=== PATIENT | male | born 1960 | race Caucasian/White ===

== ENCOUNTER 2021-01-23 13:48 | Outpatient (CLI) | payer MEDICARE, MEDICAID, SELFPAY ==
--- NOTE | ~2021-01-23 | CT_ITS ---
EXAMINATION: CT lung screening DATE: 01/23/2021 14:04 INDICATION: Personal history of tobacco dependence. TECHNIQUE: Computed tomography (CT) of the chest was performed without intravenous contrast. The dose -length product was 118.84 mGy-cm. Automated exposure control and iterative reconstruction technique were employed. COMPARISON: CT dated 07/02/2017 FINDINGS: Nonenlarged mediastinal lymph nodes, likely reactive. There are calcified mediastinal and h ilar lymph nodes, consistent with chronic granulomatous disease. Heart size is normal. No significant pleural or pericardial effusion. There are are accessory splenules. No significant pleural or perica rdial effusion. There is emphysema. Stable subsolid 11 mm mass superior segment of the left lower lob e. There is a stable 6 mm fissural nodule, minor fissure. There is a 5 mm subsolid nodule left upper lobe. IMPRESSION: 1. Lung-RADS category 2: Benign appearance or behavior. Continue annual screening with noncontrast lo w-dose chest CT in 12 months. Reviewed, dictated and finalized at location A. ETIC INTERN IMPRESSION: 1. Lung-RADS category 2: Benign appearance or behavior. Continue annual screeni ng with noncontrast low-dose chest CT in 12 months.
== END 2021-01-23 13:49 | disposition home or self-care (01) ==
LOC: ANHIMG 13:52
PROVIDERS: PCP Internal Medicine; Visit Provider Nurse Practitioner Family
DX: Z12.2 Encounter for screening for malignant neoplasm of respiratory organs (principal); Z87.891 Personal history of nicotine dependence
CPT/HCPCS: 71271

== ENCOUNTER 2022-02-23 14:33 | Outpatient (CLI) | payer OTHER, SELFPAY ==
--- NOTE | ~2022-02-23 | CT_ITS ---
EXAMINATION: CT lung screening DATE: 02/23/2022 14:55 INDICATION: Screening for lung cancer. TECHNIQUE: Computed tomography (CT) of the chest was performed without intravenous contrast. The dose -length product was 145.50 mGy-cm. Automated exposure control and iterative reconstruction technique were employed. COMPARISON: CT dated 01/23/2021 FINDINGS: Heart size normal. No thoracic lymphadenopathy. There are scattered calcified granulomas. N o significant pleural or pericardial effusion. There are accessory splenules. There are cholecystecto my clips. There is emphysema. There is a new cluster of nodules in the right upper lobe, largest nelida uring 8 mm. There is a new 7 mm right upper lobe nodule, image 55. There are clustered nodules in the right lower lobe with tree-in-bud configuration. The largest of these nodules measures 1.5 cm. There is a new 9 mm right lower lobe nodule stable some solid nodule in the superior segment left lower lo be measuring 11 mm. There is a new 1 cm left lower lobe nodule just above the diaphragm, image 85. No pneumothorax. No focal lytic or blastic lesions. IMPRESSION: 1. BI-RADS Category 4B, very suspicious: Recommend follow-up PET/CT scan or percutaneous biopsy. Reviewed, dictated and finalized at location A. TIONAL EDUCATION PROFESSIONAL IMPRESSION: 1. BI-RADS Category 4B, very suspicious: Recommend follow-up PET/CT scan or per cutaneous biopsy.
== END 2022-02-23 14:34 | disposition home or self-care (01) ==
PROVIDERS: PCP Internal Medicine; Visit Provider Nurse Practitioner Family
DX: Z12.2 Encounter for screening for malignant neoplasm of respiratory organs (principal); F17.210 Nicotine dependence, cigarettes, uncomplicated; R91.8 Other nonspecific abnormal finding of lung field
CPT/HCPCS: 71271

== ENCOUNTER 2022-03-22 09:02 | Outpatient (CLI) | payer OTHER, SELFPAY ==
--- NOTE | ~2022-03-22 | PE_ITS ---
EXAMINATION: PET skull to mid thigh DATE: 03/22/2022 10:41 INDICATION: Lung nodule. TECHNIQUE: Blood glucose level was 113 mg/dL. 11.494 mCi of 18-fluorodeoxyglucose (18-FDG) was admini stered i.v. Low dose computed tomography (CT) images were acquired from the base of the brain to the proximal thighs for attenuation correction and anatomic localization. Automated exposure control was employed. Dose-length product (DLP) was 770 mGy-cm. Positron emission tomography (PET) images were ac quired in the same distribution. COMPARISON: Chest CT 02/23/2022, 01/23/2021 FINDINGS: Head/neck: There is increased activity in the oral cavity, pharynx, major salivary glands, and glotti s without abnormal CT correlate, likely physiologic. There is mucosal thickening in the paranasal sin uses with sclerosis of many of the sinus maldonado and surgical changes and increased activity, consisten t with chronic sinusitis. Chest: There is mild emphysema. Calcified pulmonary nodules and calcified hilar and mediastinal lymph nodes are consistent with old granulomatous disease. There is mild bilateral hilar and mediastinal l ymphadenopathy with increased activity. There is a 10 mm nodule in superior segment left lower lobe w ithout increased activity, stable from 01/23/2021, likely benign. There are nodules in right upper lob e and right lower lobe measuring up to 5 mm without increased activity with interval improvement. No pleural effusion. The heart size is normal. No pericardial effusion. Abdomen/pelvis/proximal thighs: The liver and spleen are normal. There are changes of cholecystectomy . The pancreas, adrenal glands, and kidneys are normal. The prostate is mildly enlarged. There is div erticulosis of the colon without evidence of diverticulitis. There are no dilated loops of bowel. The appendix is normal. There are no pathologically enlarged lymph nodes. There is no free intraperitone al fluid. There is prominent fat in the inguinal canals that may be hernias. There is no osseous humble gnancy. IMPRESSION: 1. Small pulmonary nodules without increased activity with improvement from 02/23/2022, likely infecti on. Continue annual screening with noncontrast low-dose chest CT in 12 months. 2. Mild bilateral hilar and mediastinal lymphadenopathy with increased activity, likely reactive. 3. Mild emphysema. Reviewed, dictated and finalized at location A. ANTILE AGENT IMPRESSION: 1. Small pulmonary nodules without increased activity with improvement from 02/23/2022, likely infection. Continue annual screening with noncontrast low-dose c hest CT in 12 months. 2. Mild bilateral hilar and mediastinal lymphadenopathy with increased activity , likely reactive. 3. Mild emphysema.
[2022-03-22 09:24] LABS: Glucose Point of Care 113 mg/dl (65-105)
== END 2022-03-22 09:03 | disposition home or self-care (01) ==
PROVIDERS: PCP Internal Medicine; Visit Provider Nurse Practitioner Family
DX: R91.8 Other nonspecific abnormal finding of lung field (principal)
CPT/HCPCS: 78815; A9552

== ENCOUNTER 2023-04-03 12:36 | Outpatient (CLI) | payer OTHER, SELFPAY ==
--- NOTE | ~2023-04-03 | CT_ITS ---
CT Scan of the Chest without Contrast: Clinical Indication: Lung cancer screening, personal history of nicotine dependence Technique: Contiguous sections were acquired throughout the chest without intravenous contrast. Dose reduction technique was used on this scan by utilizing automated exposure control and iterative recon struction technique. The dose-length product (DLP) was 169.45 mGy-cm. COMPARISON: 02/23/2022 Findings: There is no evidence of any significant mediastinal, hilar or axillary lymphadenopathy. The mediastin al soft tissues appear normal. There is no evidence of pleural or pericardial effusion. 1.1 cm semisolid nodule in the superior segment left lower lobe is similar to prior exam. There are f ocal, mild tree-in-bud opacities in the anterior right upper lobe. Nodularity at the more inferior, p eripheral right upper lobe is resolved from prior exam. Areas of nodularity bilateral lung bases are resolved. Images through the upper abdomen reveal no abnormalities. Impression: Stable 1.1 cm semisolid nodule in the superior segment left lower lobe. Focal, mild tree-in-bud opacities anterior right upper lobe, suggestive of small airways infectious p rocess. Areas of irregular nodularity at the bilateral lung bases are resolved. Reviewed, dictated and finalized at location M. NG AND REIMBURSEMENT SPECIALIST Impression: Stable 1.1 cm semisolid nodule in the superior segment left lower lobe. Focal, mild tree-in-bud opacities anterior right upper lobe, suggestive of smal l airways infectious process. Areas of irregular nodularity at the bilateral lung bases are resolved.
== END 2023-04-03 12:37 | disposition home or self-care (01) ==
PROVIDERS: PCP Family Medicine; Visit Provider Nurse Practitioner Family
DX: Z12.2 Encounter for screening for malignant neoplasm of respiratory organs (principal); Z87.891 Personal history of nicotine dependence
CPT/HCPCS: 71271

== ENCOUNTER 2024-04-06 09:52 | Outpatient (CLI) | payer MEDICARE, MEDICAID, SELFPAY ==
--- NOTE | ~2024-04-06 | CT_ITS ---
EXAMINATION: CT lung screening DATE: 04/06/2024 10:21 INDICATION: Z87.891 - Personal history of nicotine dependence TECHNIQUE: Computed tomography (CT) of the chest was performed without intravenous contrast. Addition al 3D reconstructions utilizing coronal maximum intensity projection (MIP) were performed. Automated exposure control and iterative reconstruction technique were employed. The dose-length product was 14 5.29 mGy-cm. COMPARISON: 04/03/2023, 02/23/2022, 01/23/2021 and 07/02/2017 FINDINGS: Mild emphysema. There are multiple scattered <4 mm pulmonary nodules, the majority regions of tree-in -bud opacity in the bilateral lower lobes and in the right upper lobe. These include a few scattered calcified pulmonary nodules which along with calcified bilateral hilar and mediastinal lymph nodes ar e consistent with old granulomatous disease. No significant interval change since 07/02/2017 in a 1.1 cm spiculated nodule in the superior segment of the left lower lobe. Heart size is normal. No pericar dial effusion. Small amount of aortic valve calcification. Thoracic aorta is normal in caliber. No pa thologically enlarged thoracic lymphadenopathy. Cholecystectomy clips along the gallbladder fossa. Ch ronic mild anterior wedging of a few mid and lower thoracic vertebral bodies. IMPRESSION: 1. Lung-RADS category 2: Benign appearance or behavior. Continue annual screening with noncontrast lo w-dose chest CT in 12 months. Reviewed, dictated and finalized at location A. H BORING MACHINE OPERATOR IMPRESSION: 1. Lung-RADS category 2: Benign appearance or behavior. Continue annual screeni ng with noncontrast low-dose chest CT in 12 months.
== END 2024-04-06 09:53 | disposition home or self-care (01) ==
PROVIDERS: PCP Family Medicine; Visit Provider Nurse Practitioner Family
DX: Z12.2 Encounter for screening for malignant neoplasm of respiratory organs (principal); Z87.891 Personal history of nicotine dependence
CPT/HCPCS: 71271

== ENCOUNTER 2024-05-24 18:08 | Inpatient (IN) | payer MEDICARE, MEDICAID, SELFPAY ==
[2024-05-24] VITALS (19 sets, daily range): BP systolic 106–136; BP diastolic 62–94; PULSE 48–108; RESP 13–28; TEMP 36.8; O2SAT 81–98
--- NOTE | ~2024-05-24 | XR_ITS ---
EXAMINATION: XR chest 2V Exam Date/Time: 05/24/2024 18:35 CDT HISTORY: SOB Comparison: 02/01/2019. RESULT: Lines, tubes, and devices: None. Lungs and pleura: Clear. Cardiomediastinal silhouette: Stable. Other: No acute osseous or upper abdominal finding. 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 IMPRESSION: No acute cardiopulmonary process. Reviewed, dictated and finalized at location K.
--- OUTSIDE RECORDS SUMMARY | 2024-05-24 18:11 | XMS_ITS | Clinical Summary ---
Author Organization [facility] Address [address] [place] [address] Care Team Providers Care Broke Beater Operator Name Role Phone John Stout MD Primary Care Provider Allergies Active Allergy Reactions Criticality Noted Date Comments Aspirin Anaphylaxis High 02/18/2017 Ibuprofen Anaphylaxis,Itching High 07/10/2013 Methylprednisolone Shortness of breath High 04/08/19 17 Breathing Difficulty Naproxen Anaphylaxis High 09/25/2013 Nsaids (Non-Steroidal Anti-Inflammatory Drug) Anaphylaxis,Shortne ss of breath High 07/20/2013 Breathing Difficulty Medications ALPRAZolam (XANAX) 0.25 mg tablet Take 0.5-1 tablets (0.125-0.25 mg total) by mouth 2 (two) times a day as needed 03/21/19 16 Active albuterol 0.63 mg/3 mL nebulizer solution USE 1 VIAL VIA NEBULIZER FOUR TIMES DAILY NEEDED FOR SHORTNESS OF BREATH OR WHEEZING 03/13/20 18 Active montelukast (SINGULAIR) 10 mg tablet TAKE 1 TABLET(10 MG) BY MOUTH EVERY NIGHT AT BEDTIME 01/09/20 17 Active cetirizine (ZyrTEC) 10 mg tablet Take 1 tablet (10 mg total) by mouth every 12 (twelve) hours 10/07/19 22 Active EPINEPHrine 0.3 mg/0.3 mL auto-injection syringe INJECT IN THE MUSCLE NEEDED FOR ANAPHYLAXIS. REPEAT IN 5-15 MINUTES IF NEEDED 09/30/19 22 Active diphenhydrAMINE (BENADRYL) 12.5 mg chewable tablet Take 1 tablet (12.5 mg total) by mouth daily as needed for allergies Active ipratropium-alb uteroL (DUO-NEB) 0.5-2.5 mg/3 mL nebulizer solutionIndicat ions:Severe persistent asthma with acute exacerbation (HCC) Take 3 mL by nebulization every 6 (six) hours as needed for wheezing or shortness of breath 180 mL 3 04/24/19 24 Active beclomethasone dipropionate (Qvar RediHaler) 80 mcg/actuation inhalerIndicati ons:Severe persistent asthma, unspecified whether complicated (HCC) Inhale 2 puffs 2 (two) times a day Rinse mouth with water after use. Do not swallow. 1 each 10/02/19 24 Active Additional Information Patient not taking.Reported on 03/02/2024 fluticasone propionate (Xhance) 93 mcg/actuation aerosol breath activatedIndica tions:Nasal polyps Administer 93 mcg into affected nostril(s) 2 (two) times a day 16 mL 11 01/09/20 24 Active Tezspire 210 mg/1.91 mL (110 mg/mL) pen injector Inject 210 mg as directed every 28 (twenty-eight) days 1.91 mL 11 04/24/19 25 Active Breztri Aerosphere 160-9-4.8 mcg/actuation inhalerIndicati ons:Severe persistent asthma with acute exacerbation (HCC) INHALE 2 PUFFS BY MOUTH TWICE DAILY 10.7 g 2 05/05/19 25 Active budesonide-glyc opyr-formoterol (Breztri Aerosphere) 160-9-4.8 mcg/actuation inhalerIndicati ons:Severe persistent asthma with acute exacerbation (HCC) INHALE 2 PUFFS BY MOUTH TWICE DAILY 10.7 g 2 01/02/20 24 2024 Discontinued Active Problems Problem Noted Date Diagnosed Date Polyp, nasal, cavity 10/25/2021 REJI (obstructive sleep apnea) 04/19/2016 Tobacco use 05/04/2015 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 Chronic obstructive pulmonary disease 03/16/2013 Encounters Date Type Department Care Team Description 04/29/2024 Telephone [facility] [address] [place] [address] Avani Lopes RPh 03/02/2024 1:26 PM EDGER HAND - 03/02/2024 11:59 PM EDGER HAND Hospital Encounter [facility] Radiology at the [address] [address] Severe persistent asthma with acute exacerbation (HCC); Upper respiratory tract infection, unspecified type Discharge Disposition: Discharge to home or self care 03/02/2024 1:00 PM EDGER HAND Office Visit [facility] [address] [place] [address] [place] [phone] Sarah Anderson NP Severe persistent asthma with acute exacerbation (HCC) (Primary Dx); Upper respiratory tract infection, unspecified type 03/02/2024 Telephone [facility] [address] [place] [phone] Sarah Anderson NP 02/28/2024 Telephone [facility] [address] [place] [phone] Rocío Elena from Last 3 Months Surgical History Surgery Date Site/Laterality Comments CHOLECYSTECTOMY SINUS SURGERY Medical History Medical History Date Comments Asthma COPD (chronic obstructive pulmonary disease) (HC C) Social History Tobacco Use Types Packs/Day Years Used Date Smoking Tobacco: Every Day Cigarettes Smokeless Tobacco: Never Tobacco Cessation:Ready to Q uit: Yes; Counseling Given: No Alcohol Use Standard Drinks/Week Comments Not Currently 0 (1 standard drink = 0.6 oz pur e alcohol) AUDIT-C Answer Date Recorded Q1: How often do you have a drink containing alc ohol? 2-4 times a month 08/01/2022 Q2: How many drinks containi ng alcohol do you have on a typical day when you are drinking? 3 or 4 08/01/2022 Q3: How often do you have si x or more drinks on one occasion? Never 08/01/2022 Sex and Gender Information Value Date Recorded Sex Assigned at Not on file Legal Sex Male 9:50 AM EDGER HAND Gender Identity Not on file Sexual Orientation Not on file Obstetrics History Last Filed Vital Signs Vital Sign Reading Time Taken Comments Blood Pressure 128/81 03/02/2024 12:43 PM EDGER HAND Pulse 74 03/02/2024 12:43 PM EDGER HAND Temperature 36.4 C (97.5 F) 03/02/2024 12:43 PM EDGER HAND Respiratory Rate 18 03/02/2024 12:43 PM EDGER HAND Oxygen Saturation 91% 03/02/2024 12:43 PM EDGER HAND Inhaled Oxygen Concentration - - Weight 95.7 kg (211 lb) 03/02/2024 12:43 PM EDGER HAND Height 175.3 cm (5' 9 ) 03/02/2024 12:43 PM EDGER HAND Body Mass Index 31.16 03/02/2024 12:43 PM EDGER HAND Plan of Treatment Health Maintenance Due Date Last Done Comments Colon Cancer Screening-Colonoscopy 1958 Depression Screening 1958 Fall Risk Assessment 1960 Hepatitis C Screening 1960 Prostate Cancer Screening-PSA 1958 DTaP/Tdap/Td Vaccine (1 - Tdap) 1969 Hepatitis B Screening 1976 Zoster Vaccine (1 of 2) 2008 Abdominal Aortic Aneurysm (A AA) Screen 06/30/2023 09/01/2020 Well Visit 65+ 06/30/2023 Covid-19 Vaccine (4 - 2023-2 5 season) 2023 05/09/2021, 11/22/2020, 10/21/2020 Influenza Vaccine (#1) 2023 , 01/07/2020, 12/10/2016, Additional history exists Pneumococcal vaccine 65+ (3 of 3 - PCV20 or PCV21) 11/11/2024 11/12/2019, 02/17/2015, 07/02/2013 Procedures Procedure Name Priority Date/Time Associated Diagnosis Comments XR CHEST PA LATERAL 2 VIEWS Schedule Routine, Read Routine (OP Routine) 03/02/2024 1:30 PM EDGER HAND Severe persistent asthma with acute exacerbation (HCC) Upper respiratory tract infection, unspecified type CT ABDOMEN PELVIS WO CONTRAST ED 09/01/2020 11:39 PM CDT from Last 3 Months or Most Recently Relevant to Health Maintenance Results * XR Chest PA Lateral 2 Views (03/02/2024 1:30 PM EDGER HAND) Anatomical Region Laterality Modality Body, Chest N/A Computed Radiogr aphy 03/02/2024 1:49 PM EDGER HAND Impressions 03/02/2024 2:02 PM EDGER HAND Comparison made to topogram from chest CT dated 10/30/2013. Lungs are hyperinflated. No pulmonary consolidation, pleural effusion, or pneumothorax. Cardiomediastinal silhouette is normal. Dictated by: Hubert Long MD The radiology attending physician has personally reviewed this study, and had reviewed and/or edited this written report and agrees with it. Electronically signed by: Cam Lisa M.D. Narrative 03/02/2024 2:02 PM EDGER HAND EXAMINATION: 2 view chest radiograph Procedure Note Cam Lisa MD - 03/02/2024 EXAMINATION: 2 view chest radiograph IMPRESSION: Comparison made to topogram from chest CT dated 10/30/2013. Lungs are hyperinflated. No pulmonary consolidation, pleural effusion, or pneumothorax. Cardiomediastinal silhouette is normal. Dictated by: Hubert Long MD The radiology attending physician has personally reviewed this study, and had reviewed and/or edited this written report and agrees with it. Electronically signed by: Cam Lisa M.D. Sarah Saffaf PHARMACOMETRICIAN IM XR PROCEDURES Final Result * CT Abdomen Pelvis WO Contrast (09/01/2020 11:39 PM CDT) Anatomical Region Laterality Modality Body N/A Computed Tomogra phy 09/01/2020 11:2 5 PM CDT Impressions 09/02/2020 1:05 AM CDT 1. Minimal wall thickening within the urinary bladder, which may be due to under distension. Cystitis could also have this appearance in the correct clinical context. 2. A cluster of tree-in-bud type pulmonary infiltrate within the right lower lobe, suggesting infectious or inflammatory process. This may represent a reactivated atypical bacterial infection, given the findings on the prior chest CT study, or could represent aspiration pneumonitis. 3. Cholecystectomy without evidence for complication. 4. Diverticulosis without diverticulitis. THIS DOCUMENT HAS BEEN ELECTRONICALLY SIGNED BY CRYS GUEVARA MD THIS DOCUMENT WAS READ BY A [facility] RADIOLOGIST, ANY QUESTIONS PLEASE CALL [phone] Narrative 09/02/2020 1:05 AM CDT PROCEDURE INFORMATION: Exam: CT Abdomen And Pelvis Without Contrast Exam date and time: 09/01/2020 11:25 PM Age: 60 years old Clinical indication: Abdominal pain; Prior surgery; Surgery date: 6+ months; Surgery type: Josephine; Patient HX: Right sided abd that radiates to back; Additional info: Abdominal pain, acute, nonlocalized TECHNIQUE: Imaging protocol: Computed tomography of the abdomen and pelvis without contrast. Radiation optimization: All CT scans at this facility use at least one of these dose optimization techniques: automated exposure control; mA and/or kV adjustment per patient size (includes targeted exams where dose is matched to clinical indication); or iterative reconstruction. COMPARISON: CT Chest without contrast 10/30/2013 2:05 PM FINDINGS: Lungs: An 18 mm pulmonary cyst is seen within the lateral basilar segment of the left lower lobe. Minimal atelectasis is seen within the lung bases. A cluster of tree-in-bud type pulmonary nodules are seen within the lateral basilar segment of the right lower lobe. Pleural spaces: No pleural effusion. Heart: The heart is normal in size. No pericardial effusion. Liver: The liver is upper limits of normal in size. Gallbladder and bile ducts: The gallbladder is surgically absent. No bile duct dilatation. Pancreas: Normal. No ductal dilation. Spleen: Normal. No splenomegaly. Adrenal glands: Normal. No mass. Kidneys and ureters: The bilateral kidneys are normal appearance. No hydronephrosis. Stomach and bowel: Diverticula are seen within the descending and sigmoid colon without diverticulitis. Appendix: No evidence of appendicitis. Intraperitoneal space: No free fluid, free air, or abscess. Vasculature: Mild atherosclerotic calcifications within the abdominal aorta without aneurysm. Lymph nodes: Unremarkable. No enlarged lymph nodes. Urinary bladder: Minimal wall thickening within the urinary bladder, which may be due to under distension. Reproductive: The prostate gland is mildly enlarged. Bones/joints: Mild degenerative changes within the lumbar spine. No acute compression fracture. Soft tissues: Small bilateral fat containing inguinal hernias. Procedure Note Crys Guevara MD - 09/02/2020 PROCEDURE INFORMATION: Exam: CT Abdomen And Pelvis Without Contrast Exam date and time: 09/01/2020 11:25 PM Age: 60 years old Clinical indication: Abdominal pain; Prior surgery; Surgery date: 6+months; Surgery type: Josephine; Patient HX: Right sided abd that radiates to back; Additional info: Abdominal pain, acute, nonlocalized TECHNIQUE: Imaging protocol: Computed tomography of the abdomen and pelvis without contrast. Radiation optimization: All CT scans at this facility use at least one ofthese dose optimization techniques: automated exposure control; mA and/or kV adjustment per patient size (includes targeted exams where dose is matchedto clinical indication); or iterative reconstruction. COMPARISON: CT Chest without contrast 10/30/2013 2:05 PM FINDINGS: Lungs: An 18 mm pulmonary cyst is seen within the lateral basilar segmentof the left lower lobe. Minimal atelectasis is seen within the lung bases. A cluster of tree-in-bud type pulmonary nodules are seen within the lateral basilar segment of the right lower lobe. Pleural spaces: No pleural effusion. Heart: The heart is normal in size. No pericardial effusion. Liver: The liver is upper limits of normal in size. Gallbladder and bile ducts: The gallbladder is surgically absent. No bileduct dilatation. Pancreas: Normal. No ductal dilation. Spleen: Normal. No splenomegaly. Adrenal glands: Normal. No mass. Kidneys and ureters: The bilateral kidneys are normal appearance. No hydronephrosis. Stomach and bowel: Diverticula are seen within the descending and sigmoidcolon without diverticulitis. Appendix: No evidence of appendicitis. Intraperitoneal space: No free fluid, free air, or abscess. Vasculature: Mild atherosclerotic calcifications within the abdominalaorta without aneurysm. Lymph nodes: Unremarkable. No enlarged lymph nodes. Urinary bladder: Minimal wall thickening within the urinary bladder, whichmay be due to under distension. Reproductive: The prostate gland is mildly enlarged. Bones/joints: Mild degenerative changes within the lumbar spine. No acute compression fracture. Soft tissues: Small bilateral fat containing inguinal hernias. IMPRESSION: 1. Minimal wall thickening within the urinary bladder, which may be due to under distension. Cystitis could also have this appearance in the correct clinical context. 2. A cluster of tree-in-bud type pulmonary infiltrate within the rightlower lobe, suggesting infectious or inflammatory process. This may represent a reactivated atypical bacterial infection, given the findings on the priorchest CT study, or could represent aspiration pneumonitis. 3. Cholecystectomy without evidence for complication. 4. Diverticulosis without diverticulitis. THIS DOCUMENT HAS BEEN ELECTRONICALLY SIGNED BY CRYS GUEVARA MD THIS DOCUMENT WAS READ BY A [facility] RADIOLOGIST, ANY QUESTIONS PLEASE [phone] Rocío Lindquist MD IMG CT PROCEDURES Final Result from Last 3 Months or Most Recently Relevant to Health Maintenance Insurance [facility] MEDICARE MEDICARE Care Teams Broke Beater Operator Relationship Specialty [place] [address] [place], [place] [id number] PCP - General Internal Medicine 12/15/21
--- OUTSIDE RECORDS SUMMARY | 2024-05-24 18:11 | XMS_ITS | Encounter Summary ---
Author Organization [facility] Address [address] [place] [address] Care Team Providers Care Television Producer Name Role Phone John Stout MD Primary Care Provider U John An MD Primary Care Provider U Ken Bae MD Primary Care Provider [phone] Encounter Details Date Type Department Care Team (Late st Contact Info) Description 08/27/2018 Hospital Follow-up Call [facility] Med/Surg [address] [place] [address] Jacklyn Morales, YOLY Social History Tobacco Use Types Packs/Day Years Used Date Smoking Tobacco: Every Day Cigarettes 0.5 38 Smokeless Tobacco: Never Comments:10-15 cigs a day Alcohol Use Standard Drinks/Week Comments Yes 0 (1 standard drink = 0.6 oz pur e alcohol) socially Education Answer Date Recorded What is the highest level of school you have completed or the highest degree you have received? 10th grade 02/19/2018 Sex and Gender Information Value Date Recorded Sex Assigned at Male 12/25/2018 5:07 AM CDT Legal Sex Male 1:30 AM CDT Gender Identity Male 12/25/2018 5:07 AM CDT Sexual Orientation Straight 12/25/2018 5: 07 AM CDT Occupation Industry Job Start Date Job End Date Not on file Not on file Not on file Not on file documented as of this encounter Plan of Treatment Not on file documented as of this encounter Visit Diagnoses Not on filedocumented in this encounter Additional Health Concerns Infection Onset Date Last Indicated Resolved Time COVID-19 Rule Out 10/02/2021 10/02/202110/0210/02/2021 6:12 PM CDT COVID-19 Rule Out 10/11/2021 10/11/2021 10/11/2021 4:35 PM CDT COVID-19 Rule Out 03/13/2023 03/13/2023 03/13/2023 2:57 PM REPRESENTATIVE Influenza - Seasonal 03/13/2023 03/13/2023 024 12:33 AM REPRESENTATIVE COVID-19 Rule Out 02/06/2024 02/06/2024 02/06/2024 1:48 PM REPRESENTATIVE Influenza - Seasonal 02/06/2024 02/06/2024 024 12:33 AM REPRESENTATIVE documented as of this encounter Care Teams Television Producer Relationship Specialty Start Date End Date John Stout MD PCP - General INTERNAL MEDICINE 02/19/18 06/04/21 John Stout MD PCP - General INTERNAL MEDICINE 06/19/21 04/26/22 [place] [address] [place] [address] PCP - General FAMILY PRACTICE 04/27/22 documented as of this encounter
--- OUTSIDE RECORDS SUMMARY | 2024-05-24 18:11 | XMS_ITS | Clinical Summary ---
Author Organization [facility] Address [address] [place] [address] Care Team Providers Care Splicing Technician Name Role Phone John Stout MD Primary Care Provider + Source Comments [facility],non-owned Affiliates and Associated Physician Practices is amultiple site organization consisting of ambulatory clinics and hospital sitesin [place], [place], [place] and [place]. This disclosure is being madepursuant to the Care Everywhere program and may not contain all information available regarding this patient. Last updated 17.[facility] Allergies Active Allergy Reactions Criticality Noted Date Comments Aspirin Anaphylaxis High 02/18/2017 Nsaids Anaphylaxis High 05/04/2015 Medications * Be aware that medications may not be up to date on this document. Alwaysverify current medications with the patient. Medication Sig Dispensed Refills Start Date End Date Status albuterol HFA (VENTOLIN HFA) 108 (90 BASE) MCG/ACT inhaler Inhale 2 puffs by mouth q6h PRN (Wheezing). 01/08/2017 Active diphenhydrAMINE (BENADRYL) 25 MG tablet Take 25 mg by mouth q6h PRN (Insomnia). 01/08/2017 Active montelukast (SINGULAIR) 10 MG tablet Take 10 mg by mouth DAILY. 01/08/2017 Active Oxygen [place] 3 L/min into the nose as needed Active ALPRAZolam (XANAX) 0.25 MG tablet Take 1 tablet by mouth 03/21/2015 Active umeclidinium (INCRUSE ELLIPTA) 62.5 MCG/INH inhalerIndications:C hronic obstructive pulmonary disease, unspecified COPD type (HCC) Inhale 1 puff by mouth once daily 1 Each 11 07/24/2017 Active cetirizine (ZYRTEC) 10 MG tablet Take 10 mg by mouth once daily Active zileuton CR 12hr (ZYFLO CR) 600 MG tablet Take 2 tablets by mouth 2 times daily after meals 120 tablet 01/03/2018 Active albuterol (ACCUNEB) 0.63 MG/3ML nebulizer solution USE 1 VIAL VIA NEBULIZER FOUR TIMES DAILY NEEDED FOR SHORTNESS OF BREATH OR WHEEZING 225 mL 03/13/2018 Active Active Problems Problem Noted Date Diagnosed Date Chronic pansinusitis 01/01/2018 Urticaria 07/21/2015 Chronic rhinitis 07/21/2015 Nasal polyp 05/04/2015 Allergy status to other drug s, medicaments and biological substances status 05/04/2015 Tobacco use 05/04/2015 Allergic rhinitis 05/04/2015 Aspirin sensitivity 05/04/2015 Resolved Problems Problem Noted Date Diagnosed Date Resolved Date Severe persistent asthma wit h acute exacerbation 05/04/2015 07/01/2017 Social History Tobacco Use Types Packs/Day Years Used Date Smoking Tobacco: Every Day Cigarettes Last attempted to quit: 08/26/2017 Smokeless Tobacco: Former Quit: 03/18/1987 Tobacco Cessation:Counseling Given: No Comments:nicotine patch in place at this time Alcohol Use Standard Drinks/Week Comments Yes 4 (1 standard drink = 0.6 oz pur e alcohol) 6 beers a month Sex and Gender Information Value Date Recorded Sex Assigned at Not on file Gender Identity Not on file Sexual Orientation Not on file Last Filed Vital Signs Vital Sign Reading Time Taken Comments Blood Pressure 128/73 05/07/2018 10:44 AM FORENSIC ENGINEER Pulse 93 05/07/2018 10:44 AM FORENSIC ENGINEER Temperature 36.6 C (97.8 F) 11/08/2017 10:12 AM CDT Respiratory Rate 16 11/08/2017 11:44 AM CDT Oxygen Saturation 100% 11/08/2017 11:44 AM CDT Inhaled Oxygen Concentration - - Weight 105 kg (231 lb 8 oz) 05/07/2018 10:44 AM FORENSIC ENGINEER Height 175.3 cm (5' 9 ) 05/07/2018 10:44 AM FORENSIC ENGINEER Body Mass Index 34.19 05/07/2018 10:44 AM FORENSIC ENGINEER Plan of Treatment Health Maintenance Due Date Last Done Comments COLOGELIO (AGES 45-75) - COL ON CA SCREENING 1958 COLON MONITORING 1958 COLONOSCOPY - COLON CA SCREENING 1958 CT COLONOGRAPHY - COLON CA SCREENING 1958 Colorectal Cancer Screening 1958 FIT - COLON CA SCREENING 1958 FLEX SIG - COLON CA SCREENING 1958 LIPID TESTING 1958 MEDICARE AWV 12 MONTHS 1958 HIV SCREENING 1973 HEPATITIS C SCREENING 06/24/1976 DTAP/TDAP/TD VACCINES (1 - Tdap) 1977 PNEUMOCOCCAL VACCINE 50+ (1 of 2 - PCV) 1977 ZOSTER VACCINE (1 of 2) 2008 SCREENING FOR DIABETES 11/08/2020 11/08/2017 AAA SCREENING 06/30/2023 COVID-19 VACCINE (1 - 2023-2 5 season) 2023 INFLUENZA VACCINE (#1) 2023 DEPRESSION SCREENING 03/18/2024 Respiratory Syncytial Virus (RSV) Vaccine Pt: or over 60 yrs (1 - 1-dose 75+ series) 2033 HEPATITIS B VACCINE Aged Out No longe r eligible based on patient's age to complete this topic HIB VACCINE Aged Out No longer eligi ble based on patient's age to complete this topic HPV VACCINE Aged Out No longer eligi ble based on patient's age to complete this topic MENINGOCOCCAL (Group B) VACCINE Aged Out No longer eligible based on patient's age to complete this topic MENINGOCOCCAL VACCINE Aged Out No robin teena eligible based on patient's age to complete this topic Procedures Procedure Name Priority Date/Time Associated Diagnosis Comments COMPREHENSIVE METABOLIC PANEL STAT 11/08/2017 10:41 AM CDT Urticaria from Last 3 Months or Most Recently Relevant to Health Maintenance Results * (ABNORMAL) COMPREHENSIVE METABOLIC PANEL (11/08/2017 10:41 AM CDT) BUN 10 7 - 26 mg/dL 11/08/2017 11:02 AM [facility] Creatinine 1.0 0.6 - 1.2 mg/dL 11/08/2017 11:02 AM [facility] Sodium 140 136 - 145 mmol/L 11/08/2017 11:[address] [facility] Potassium 3.7 3.5 - 4.5 mmol/L 11/08/2017 11:[address] [facility] Chloride 101 98 - 107 mmol/L 11/08/2017 11:[address] [facility] CO2 30(H) 22 - 29 mmol/L 11/08/2017 11:[address] [facility] Glucose 94 70 - 115 mg/dL 11/08/2017 11:[address] [facility] Calcium 9.6 8.4 - 10.2 mg/dL 11/08/2017 11:[address] [facility] Protein Total 7.1 6.0 - 8.3 g/dL 11/08/2017 11:[address] [facility] Albumin 3.5 3.4 - 5.0 g/dL 11/08/2017 11:[address] [facility] Bilirubin Total 0.6 0.2 - 1.2 mg/dL 11/08/2017 11:[address] [facility] Alkaline Phosphatase 90 40 - 150 Units/L 11/08/2017 11:[address] [facility] ALT 46 0 - 55 Units/L 11/08/2017 11:[address] [facility] AST 22 5 - 34 Units/L 11/08/2017 11:[address] [facility] Anion Gap 13 8 - 18 11/08/2017 11:[address] [facility] BUN/Creatinine Ratio 10 7 - 23 11/08/2017 11:[address] [facility] Osmolality Calculated 289 270 - 300 mOsm/kg 11/08/2017 11:[address] [facility] Albumin/Globulin Ratio 1.0(L) 1.1 - 2.3 11/08/2017 11:[address] [facility] eGFR >60 >60 mL/min/1.7 3 m2 11/08/2017 11:[address] [facility] Blood BLOOD SPECIMEN / Unknown Venipuncture / Unknown 11/08/2017 10:41 AM CDT 11/08/2017 10:44 AM T Uriel Hooker MD LAB - CHEMISTRY [place] [facility] Organization Address City/State/ZIP Co de Phone Number [facility] [address] [place] [address], [facility] [phone] from Last 3 Months or Most Recently Relevant to Health Maintenance Care Teams Splicing Technician Relationship Specialty Start Date End Date John Stout MD PCP - General 03/22/15
--- OUTSIDE RECORDS SUMMARY | 2024-05-24 18:11 | XMS_ITS | Clinical Summary ---
Author Organization [facility] Address [address] [place] [address] Care Team Providers Care Facilities Assistant Name Role Phone Ken Link MD Primary Care Provider [phone] Allergies Active Allergy Reactions Criticality Noted Date Comments Aspirin Anaphylaxis High 02/18/2017 Ibuprofen Anaphylaxis High 07/10/2013 Naproxen Anaphylaxis High 08/22/2018 Nsaids Anaphylaxis High 07/20/2013 Medications OXYGEN 3 L/min by Nasal route. Active acetaminophen 325 MG tablet Take 2 tablets (650 mg total) by mouth every 6 (six) hours as needed for Pain. Active fluticasone propionate 50 MCG/ACT nasal spray 2 sprays by Nasal route daily as needed for Allergies or Rhinitis. Uses on days he is not using ipratropium nasal spray 0 019 Active ipratropium-albut filiberto 0.5-2.5 (3) MG/3ML SolutionIndicatio ns:Asthma with COPD ([facility]) Take 3 mLs by nebulization every 6 (six) hours as needed. 1080 mL 2 020 Active EPINEPHrine 0.3 MG/0.3ML injectionIndicati ons:Drug-induced anaphylaxis, subsequent encounter EpiPen 0.3 MG/0.3ML 4Active 1 each 2 022 Active Budeson-Glycopyrr ol-Formoterol (BREZTRI AEROSPHERE) 160-9-4.8 MCG/ACT AerosolIndication s:Asthma with COPD ([facility]) Inhale 2 puffs into the lungs 2 (two) times daily. 10.7 g 2 022 Active XHANCE 93 MCG/ACT Exhaler Suspension Active BANOPHEN 25 MG capsule TAKE 1 CAPSULE BY MOUTH EVERY 8 HOURS NEEDED FOR ALLERGIES 023 Active montelukast (SINGULAIR) 10 MG tabletIndications :Asthma with COPD ([facility]) Take 1 tablet (10 mg total) by mouth nightly at bedtime. 90 tablet 023 Active ipratropium (ATROVENT) 0.03 % nasal spray 2 sprays. 023 Active cetirizine (ZYRTEC) 10 MG tabletIndications :Allergic rhinitis due to other allergic trigger, unspecified seasonality take 1 tablet by mouth every 12 hours 180 tablet Active predniSONE (DELTASONE) 10 mg tablet Active TEZSPIRE 210 MG/1.91ML Solution Auto-injector injection INJECT 210MG UNDER THE SKIN EVERY 4 WEEKS. Active ARNUITY ELLIPTA 200 MCG/ACT AEROSOL POWDER, BREATH ACTIVATED INHALE 1 PUFF BY MOUTH DAILY. RINSE MOUTH WITH WATER AFTER USE. DO NOT SWALLOW 024 Active ALPRAZolam (XANAX) 0.25 MG tabletIndications :Anxiety disorder, unspecified type TAKE 1/2 TO 1 TABLET(0.125 TO 0.25 MG) BY MOUTH TWICE DAILY NEEDED 60 tablet 025 Active albuterol sulfate HFA 108 (90 Base) MCG/ACT inhalerIndication s:Asthma with COPD ([facility]) INHALE 2 PUFFS BY MOUTH EVERY 6 HOURS NEEDED FOR WHEEZING 18 g 2 025 Active atorvastatin (LIPITOR) 20 MG tabletIndications :Mixed hyperlipidemia Take 1 tablet (20 mg total) by mouth nightly at bedtime. 90 tablet 025 Active XOLAIR 150 MG/ML injection 4 mLs (600 mg total) every 14 (fourteen) days. 023 2024 Discontinued levoFLOXacin (LEVAQUIN) 750 MG tablet Take 1 tablet (750 mg total) by mouth daily. 024 2024 Discontinued azithromycin (ZITHROMAX) 250 MG tablet 2024 Discontinued QVAR REDIHALER 80 MCG/ACT AEROSOL, BREATH ACTIVATED INHALE 2 PUFFS BY MOUTH TWICE DAILY. RINSE MOUTH WITH WATER AFTER USE. DO NOT SWALLOW 024 2024 Discontinued albuterol sulfate HFA 108 (90 Base) MCG/ACT inhalerIndication s:Asthma with COPD ([facility]) INHALE 2 PUFFS BY MOUTH EVERY 6 HOURS NEEDED FOR WHEEZING 18 g 2 024 2024 Discontinued Active Problems Problem Noted Date Diagnosed Date Osteoarthrosis 08/04/2022 Overview (09/28/2022): Last Assessment & Plan: Condition: stable Follow up in: six months Screening for malignant neoplasm of colon 2022 Overview (07/27/2022): Added automatically from request for surgery [id number] Insomnia 06/20/2021 Overview (09/28/2022): Last Assessment & Plan: Condition: stable Follow up in: three months BMI 33.0-33.9,adult 11/18/2018 COPD exacerbation ([facility]) 08/22/2018 Chronic pansinusitis 01/01/2018 Overview (09/28/2022): Last Assessment & Plan: Condition: stable Follow up in: three months Elevated IgE level 08/09/2017 Asthma with COPD ([facility]) 08/25/2016 Snoring 08/25/2016 REJI (obstructive sleep apnea) 04/19/2016 Overview (09/28/2022): Last Assessment & Plan: Condition: stable Follow up in: three months Allergy 09/14/2015 Urticaria 07/21/2015 Overview (09/28/2022): Last Assessment & Plan: Condition: stable Follow up in: three months Aspirin sensitivity 05/04/2015 Aspirin-exacerbated respiratory disease (AERD) ( [facility]) 05/04/2015 Overview (09/28/2022): Last Assessment & Plan: Condition: stable Reviewed trigger avoidance and reviewed proper use of inhalers and rescue medications. Reviewed concerning signs/symptoms and ER precautions. Follow up in: three months Tobacco use 05/04/2015 Overview (09/28/2022): Last Assessment & Plan: Condition: stable Follow up in: three months Polyp, nasal, cavity 05/04/2015 Overview (09/28/2022): Last Assessment & Plan: Condition: stable Follow up in: six months Anxiety disorder 04/01/2014 Overview (09/28/2022): Last Assessment & Plan: Condition: stable Follow up in: three months Allergic rhinitis 07/10/2013 Overview (09/28/2022): Last Assessment & Plan: Condition: stable Follow up in: three months Drug-induced anaphylaxis 07/10/2013 Chronic obstructive pulmonary disease ([facility] /[facility]) 03/16/2013 Chronic obstructive pulmonary disease ([facility]) 03/16/2013 Overview (09/28/2022): Last Assessment & Plan: Condition: stable Reviewed trigger avoidance and reviewed proper use of inhalers and rescue medications. Reviewed concerning signs/symptoms and ER precautions. Follow up in: three months Resolved Problems Problem Noted Date Diagnosed Date Resolved Date Health care maintenance 06/06/2020 03/2 11/2020 Encounters Date Type Department Care Team Description 05/14/2024 12:49 PM PATHOLOGY ASSISTANT - 05/14/2024 11:59 PM PATHOLOGY ASSISTANT Hospital Encounter [facility] [address] [place] [address] Ken Link MD Discharge Disposition: Home or Self Care (Routine Discharge) 05/14/2024 11:00 AM PATHOLOGY ASSISTANT Laboratory Only [facility] [address] [place] [address] Ken Link MD 05/14/2024 10:40 AM PATHOLOGY ASSISTANT Office Visit [facility] [address] [place] [address] Ken Link MD Follow Up; COPD 05/14/2024 Travel 04/06/2024 Scan [facility] Scanned, [facility] CT (SCAN) 04/01/2024 Scan [facility] Scanned, [facility] from Last 3 Months Immunizations Name Administration Dates Next Due Arexvy Respiratory Syncytial Virus (RSV, adjuvanted) 0.5 mL, PF 03/23/2023 Fluzone 6 Months+ Quad (0.5 mL Prefilled Syringe) 01/17/2021,11/12/2019(Deferred: Patient Ill Today) Influenza (Generic) 01/07/2020,02/01/2016,2014 Influenza Adult (Generic) 01/07/2020,,02/01/2016,2014 MODERNA COVID-19 (12+) MRNA, LNP-S, PF, 100 MCG/ 0.5 ML DOSE 11/22/2020,10/21/2020 MODERNA COVID-19 ([employer]), MRNA, LNP-S, PF, 50 MCG/ 0.25 ML DOSE 05/09/2021 Pneumococcal (Pneumovax 23) 11/12/2019, 4 Pneumococcal (Prevnar 13) 02/17/2015 Family History Medical History Relation Comments Heart Father Hypertension Father Relation Status Comments Father Mother Alive Social History Tobacco Use Types Packs/Day Years Used Date Smoking Tobacco: Every Day Cigarettes 0.5 38 Passive Smoke Exposure: Current Smokeless Tobacco: Never Tobacco Cessation:Ready to Q uit: No; Counseling Given: Yes Comments:10-15 cigs a day Alcohol Use Standard Drinks/Week Comments Yes 0 (1 standard drink = 0.6 oz pur e alcohol) socially PHQ-2 Answer Date Recorded Patient Health Questionnaire-2 Score 0 02/10/2024 Education Answer Date Recorded What is the [...] file Not on file Not on file Last Filed Vital Signs Vital Sign Reading Time Taken Comments Blood Pressure 110/66 05/14/2024 10:39 AM PATHOLOGY ASSISTANT Pulse 80 05/14/2024 10:39 AM PATHOLOGY ASSISTANT Temperature 36.8 C (98.2 F) 05/14/2024 10:39 AM PATHOLOGY ASSISTANT Respiratory Rate 16 05/14/2024 10:39 AM PATHOLOGY ASSISTANT Oxygen Saturation 91% 05/14/2024 10:39 AM PATHOLOGY ASSISTANT Inhaled Oxygen Concentration - - Weight 94.3 kg (208 lb) 05/14/2024 10:39 AM PATHOLOGY ASSISTANT Height 175.3 cm (5' 9 ) 05/14/2024 10:39 AM PATHOLOGY ASSISTANT Body Mass Index 30.72 05/14/2024 10:39 AM PATHOLOGY ASSISTANT Plan of Treatment Health Maintenance Due Date Last Done Comments Hepatitis C 1976 DTaP, Tdap and Td Vaccines (1 - Tdap) 1977 Zoster Vaccines (1 of 2) 2008 Colorectal Cancer Screening Colonoscopy (10 Years) 08/21/2022 08/21/2012, 08/21/2012 COVID-19 Vaccine ( season) 2023 05/09/2021, 11/22/2020, 10/21/2020 Influenza Adult (#1) 2023 01/17/2021, 01/07/2020, 01/07/2020, Additional history exists PHQ-2 (Physician [place]) 03/18/2024 02/10/2024 Pneumococcal Vaccine: 65+ Years (3 of 3 - PPSV23 or PCV20) 11/11/2024 11/12/2019, 02/17/2015, 07/02/2013 Pneumococcal Vaccine: Pediatrics (0 to 5 Years) and At-Risk Patients (6 to 64 Years) (3 of 3 - PPSV23 or PCV20) 11/11/2024 11/12/2019, 02/17/2015, 07/02/2013 AAA SCREENING Completed 09/01/2020, 08/16, 10/23/2017, Additional history exists RSV Immunization or 60+ Years Completed 03/23/2023 Meningococcal B Vaccine Aged Out No l onger eligible based on patient's age to complete this topic Meningococcal Vaccine Aged Out No robin teena eligible based on patient's age to complete this topic RSV Immunizations Under 20 Months Aged Out No longer eligible based on patient's age to complete this topic Procedures Procedure Name Priority Date/Time Associated Diagnosis Comments COLLECTION VENOUS BLOOD VENIPUNCTURE Routine 05/14/2024 11:04 AM PATHOLOGY ASSISTANT Healthcare maintenance Screening for prostate cancer LIPID PANEL Routine 05/14/2024 11:03 AM PATHOLOGY ASSISTANT Healthcare maintenance COMPREHENSIVE METABOLIC PANEL Routine 05/14/2024 11:03 AM PATHOLOGY ASSISTANT Healthcare maintenance PROSTATE SPECIFIC ANTIGEN,SCREENING Routine 05/14/2024 11:03 AM PATHOLOGY ASSISTANT Screening for prostate cancer CT GENERIC 04/06/2024 COLONOSCOPY Routine 08/21/2012 12:00 AM CDT from Last 3 Months or Most Recently Relevant to Health Maintenance Results * PROSTATE SPECIFIC ANTIGEN,SCREENING (05/14/2024 11:03 AM PATHOLOGY ASSISTANT) PSA 2.05 <4.00 NG/ML 05/14/2024 1:30 PM PATHOLOGY ASSISTANT [facility] Comment: Test was performed using the Siemens method. Results obtained with other assay methods or kits cannot be used interchangeably with results obtained by the Siemens method. 05/14/2024 11:0 3 AM PATHOLOGY ASSISTANT us Ken Link MD LABORATORY Final Resul t [facility] [address] [place] [address], * (ABNORMAL) COMPREHENSIVE METABOLIC PANEL (05/14/2024 11:03 AM PATHOLOGY ASSISTANT) [facility] GLUCOSE 74 70 - 99 MG/DL 05/14/2024 1:35 PM [facility] BUN 12 7 - 18 MG/DL 05/14/2024 1:35 PM [facility] CREATININE S/P/B 1.02 0.7 - 1.3 MG/DL 05/14/2024 1:35 PM [facility] SODIUM S/P/B 144 136 - 145 MMOL/L 05/14/2024 1:35 PM [facility] POTASSIUM S/P/B 5.2(H) 3.5 - 5.1 MMOL/L 05/14/2024 1:35 PM [facility] CHLORIDE S/P/B 104 100 - 108 MMOL/L 05/14/2024 1:35 PM [facility] CO2 29.0 21 - 32 MMOL/L 05/14/2024 1:35 PM [facility] CALCIUM S/P/B 9.5 8.5 - 10.1 MG/DL 05/14/2024 1:35 PM [facility] BILIRUBIN TOTAL S/P/B 0.4 0.2 - 1.2 MG/DL 05/14/2024 1:35 PM [facility] TOTAL PROTEIN S/P/B 7.2 6.4 - 8.2 G/DL 05/14/2024 1:35 PM [facility] ALBUMIN S/P/B 4.1 3.4 - 5.0 G/DL 05/14/2024 1:35 PM [facility] AST 16 15 - 37 U/L 05/14/2024 1:35 PM [facility] ALT 43 16 - 60 U/L 05/14/2024 1:35 PM [facility] ALKALINE PHOSPHATASE S/P/B 106 50 - 136 U/L 05/14/2024 1:35 PM [facility] ANION GAP 11.0 5 - 15 MMOL/L 05/14/2024 1:35 PM [facility] BUN CREATININE RATIO 11.8 6 - 26 05/14/2024 1:35 PM [facility] A/G RATIO 1.3 1.0 - 2.0 RATIO 05/14/2024 1:35 PM [facility] GFR ESTIMATE 82(L) >90 ML/MIN/1.7 3 M2 05/14/2024 1:35 PM [facility] Comment: NOTE: eGFR is not calculated for patients <18 years of age. This is an estimated GFR calculation using the new CKD EPI creatinine equation without race and so does not require a correction factor for race. This estimated GFR should not be used for calculating drug doses. 05/14/2024 11:0 3 AM PATHOLOGY ASSISTANT us Ken Link MD LABORATORY Final Resul t [facility] [address] [place] [address], * (ABNORMAL) LIPID PANEL (05/14/2024 11:03 AM PATHOLOGY ASSISTANT) CHOLESTEROL 239(H) <200.0 MG/DL 05/14/2024 1:35 PM [facility] TRIGLYCERIDES 223(H) <150 MG/DL 05/14/2024 1:35 PM [facility] HDL 41 >40.0 MG/DL 05/14/2024 1:35 PM [facility] LDL (CALCULATED) 153(H) <100 MG/DL 05/14/2024 1:35 PM [facility] NON HDL CHOLESTEROL 198(H) <130 MG/DL 05/14/2024 1:35 PM [facility] CHOL/HDL RATIO 5.8(H) 0.0 - 4.5 05/14/2024 1:35 PM [facility] VLDL CALCULATION 45 5 - 55 MG/DL 05/14/2024 1:35 PM [facility] LIPID INTERPRETATION 05/14/2024 1:35 PM [facility] Comment: NIH CONCENSUS REPORT RECOMMENDATIONS: ADULT CHILD LOW RISK: CHOLESTEROL <200 <170 TRIGLYCERIDE <150 --- HDL >=60 --- LDL <100 <110 BORDERLINE: CHOLESTEROL 200-239 170-199 TRIGLYCERIDE 150-199 --- HDL 40-59 --- LDL 100-159 110-129 HIGH RISK: CHOLESTEROL >=240 >=200 TRIGLYCERIDE >=200 --- HDL <40 --- LDL >=160 >=130 05/14/2024 11:0 3 AM PATHOLOGY ASSISTANT Ken Link MD LABORATORY Final Resul t Performing Organization Address City/State/[facility] Co de Phone Number [facility] [address] [place] [address], * CT GENERIC (04/06/2024) Anatomical Region Laterality Modality Other 04/06/2024 us [facility] Scanned SCANNING Final Resu lt * Colonoscopy (08/21/2012 12:00 AM CDT) 08/21/2012 08/21/2012 Narrative [facility] TO EPIC CONVERSION - 08/21/2012 12:00 AM CDT Documented hx of procedure Procedure Note Sanjay López MD - 01/19/2018 Documented hx of procedure us Generic Conversion Md [facility] PROCEDURE ORDERABLES Final Result [facility] TO EPIC CONVERSION from Last 3 Months or Most Recently Relevant to Health Maintenance Insurance MEDICARE Advance Directives * Full Code (Latest Code Status on File) Date Activated Date Inactivated Comments 12/24/2018 6:31 PM 12/27/2018 3:46 PM * Full Code Date Activated Date Inactivated Comments 11/04/2018 12:21 PM 11/08/2018 3:14 PM * Full Code Date Activated Date Inactivated Comments 08/22/2018 7:52 PM 08/25/2018 6:21 PM Care Teams Facilities Assistant Relationship Specialty [place] [address] [place] [address] PCP - General FAMILY PRACTICE 04/27/22
--- OUTSIDE RECORDS SUMMARY | 2024-05-24 18:11 | XMS_ITS | Encounter Summary ---
Author Organization [facility] Address [facility] [place] [address] Care Team Providers Care Administrative Services Director Name Role Phone John Stout MD Primary Care Provider U John An MD Primary Care Provider U Ken Bae MD Primary Care Provider [phone] Reason for Visit * Reason Onset Date Comments Hospital Follow Up 11/10/2018 Encounter Details Date Type Department Care Team (Late st Contact Info) Description 11/10/2018 Hospital Follow-up Call [facility] Med/Surg [address] [place] [address] Sharifa Santacruz, RN Hospital Follow Up Social History Tobacco Use Types Packs/Day Years [...] on file documented as of this encounter Functional Status * RETIRED Are you deaf or do you have serious difficulty hearing Answer Date of Assessment Author Status No 11/08/2018 10:52 AM CDT Acti ve * RETIRED Are you blind or do you have serious difficulty seeing, even when wearing glasses? Answer Date of Assessment Author Status No 11/08/2018 10:52 AM CDT Acti ve * Do you have serious difficulty walking or climbing stairs? Answer Date of Assessment Author Status No 11/08/2018 10:52 AM Roxanne Pineda RN Active * Do you have difficulty dressing or bathing? Answer Date of Assessment Author Status No 11/08/2018 10:52 AM Roxanne Pineda RN Active * Because of a physical, mental, or emotional condition, do you have difficulty doing errands alone such as visiting a doctor's office or shopping? Answer Date of Assessment Author Status No 11/08/2018 10:52 AM Roxanne Pineda RN Active documented as of this encounter Mental Status * Because of a physical, mental, or emotional condition, do you have serious difficulty concentrating, remembering, or making decisions? 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 Influenza - Seasonal 03/13/2023 03/13/2023 024 12:33 AM SEWER SEPARATION DESIGNER COVID-19 Rule Out 02/06/2024 02/06/2024 02/06/2024 1:48 PM SEWER SEPARATION DESIGNER Influenza - Seasonal 02/06/2024 02/06/2024 024 12:33 AM SEWER SEPARATION DESIGNER documented as of this encounter Care Teams Administrative Services Director Relationship Specialty Start Date End Date John Stout MD PCP - General INTERNAL MEDICINE 02/19/18 06/04/21 John Stout MD PCP - General INTERNAL MEDICINE 06/19/21 04/26/22 [place] [address] [place] [address] PCP - General FAMILY PRACTICE 04/27/22 documented as of this encounter
--- OUTSIDE RECORDS SUMMARY | 2024-05-24 18:11 | XMS_ITS | Encounter Summary ---
Author Organization [facility] Address [facility] [place] [address] Care Team Providers Care Collar Setter Name Role Phone Ken Link MD Primary Care Provider [phone] Encounter Details Date Type Department Care Team ([facility] st Contact Info) Description 01/07/2023 ContractRoom Message [email or web address] [facility] Family & Internal Medicine [address] [address] [facility] Provider appointment Social History Tobacco Use Types Packs/Day Years Used Date Smoking Tobacco: Every Day Cigarettes 0.5 38 Passive Smoke Exposure: Current Smokeless Tobacco: Never Comments:10-15 cigs a day Alcohol Use Standard Drinks/Week Comments Yes 0 (1 standard drink = 0.6 oz pur e alcohol) socially PHQ-2 Answer Date Recorded Patient Health Questionnaire-2 Score 0 09/28/2022 Education Answer Date Recorded What is the [...] Answer Date of Assessment Author Status No 10/11/2021 8:57 PM CDT Activ e * RETIRED Are you blind or do you have serious difficulty seeing, even when wearing glasses? Answer Date of Assessment Author Status No 10/11/2021 8:57 PM CDT Activ e * Do you have serious difficulty walking or climbing stairs? Answer Date of Assessment Author Status No 10/11/2021 8:57 PM CDT Lesli Garcia RN Active * Do you have difficulty dressing or bathing? Answer Date of Assessment Author Status No 10/11/2021 8:57 PM CDT Lesli Garcia RN Active * Because of a physical, mental, or emotional condition, do you have difficulty doing errands alone such as visiting a doctor's office or shopping? Answer Date of Assessment Author Status No 10/11/2021 8:57 PM CDT Lesli Garcia RN Active documented as of this encounter Mental Status * Because of a physical, mental, or emotional condition, do you have serious difficulty concentrating, remembering, or making decisions? 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
--- OUTSIDE RECORDS SUMMARY | 2024-05-24 18:11 | XMS_ITS | Encounter Summary ---
Author Organization [facility] Address [facility] [place] [address] Care Team Providers Care Vascular Radiologist Name Role Phone John Stout MD Primary Care Provider U John An MD Primary Care Provider U Ken Bae MD Primary Care Provider [phone] Encounter Details Date Type Department Care Team (Late st Contact Info) Description 09/13/2018 Hospital Follow-up Call [facility] Med/Surg [address] [place] [address] Jacklyn Morales, YOLY Social History Tobacco Use [...] Rule Out 03/13/2023 03/13/2023 03/13/2023 2:57 PM BOARDER HAND Influenza - Seasonal 03/13/2023 03/13/2023 024 12:33 AM BOARDER HAND COVID-19 Rule Out 02/06/2024 02/06/2024 02/06/2024 1:48 PM BOARDER HAND Influenza - Seasonal 02/06/2024 02/06/2024 024 12:33 AM BOARDER HAND documented as of this encounter Care Teams Vascular Radiologist Relationship Specialty Start Date End Date John Stout MD PCP - General INTERNAL MEDICINE 02/19/18 06/04/21 John Stout MD PCP - General INTERNAL MEDICINE 06/19/21 04/26/22 [place] [address] [place] [address] PCP - General FAMILY PRACTICE 04/27/22 documented as of this encounter
--- OUTSIDE RECORDS SUMMARY | 2024-05-24 18:11 | XMS_ITS | Patient Health Summary ---
Author Organization [facility] [employer] [facility] [facility] Address [address] [place] [address] Care Team Providers Care Associate Drafter Name Role Phone John Stout MD Primary Care Provider + Note from [facility],non-owned Affiliates and Associated Physician Practices is amultiple site organization consisting of ambulatory clinics and hospital sitesin [place], [place], [place] and [place]. This disclosure is being madepursuant to the Care Everywhere program and may not contain all information available regarding this patient. Last updated 17.[facility] Allergies * Aspirin(Anaphylaxis) -High Criticality * Nsaids(Anaphylaxis) -High Criticality * Methylprednisolone(Anaphylaxis) -High Criticality,Inactive Medications * Be aware that medications may not be up to date on this document. Alwaysverify current medications with the patient. * albuterol HFA (VENTOLIN HFA) 108 (90 BASE) MCG/ACT inhaler(Started 01/08/2017) Inhale 2 puffs by mouth q6h PRN (Wheezing). * diphenhydrAMINE (BENADRYL) 25 MG tablet(Started 01/08/2017) Take 25 mg by mouth q6h PRN (Insomnia). * montelukast (SINGULAIR) 10 MG tablet(Started 01/08/2017) Take 10 mg by mouth DAILY. * Oxygen [place] 3 L/min into the nose as needed * ALPRAZolam (XANAX) 0.25 MG tablet(Started 03/21/2015) Take 1 tablet by mouth * umeclidinium (INCRUSE ELLIPTA) 62.5 MCG/INH inhaler(Started 07/24/2017) Inhale 1 puff by mouth once daily 11 refills remaining * cetirizine (ZYRTEC) 10 MG tablet Take 10 mg by mouth once daily * zileuton CR 12hr (ZYFLO CR) 600 MG tablet(Started 01/03/2018) Take 2 tablets by mouth 2 times daily after meals * albuterol (ACCUNEB) 0.63 MG/3ML nebulizer solution(Started 03/13/2018) USE 1 VIAL VIA NEBULIZER FOUR TIMES DAILY NEEDED FOR SHORTNESS OF BREATH OR WHEEZING Active Problems Problem Noted Date Diagnosed Date [...] Comments Blood Pressure 128/73 05/07/2018 10:44 AM [employer] Pulse 93 05/07/2018 10:44 AM [employer] Temperature 36.6 C (97.8 F) 11/08/2017 10:12 AM CDT Respiratory Rate 16 11/08/2017 11:44 AM CDT Oxygen Saturation 100% 11/08/2017 11:44 AM CDT Inhaled Oxygen Concentration - - Weight 105 kg (231 lb 8 oz) 05/07/2018 10:44 AM [employer] Height 175.3 cm (5' 9 ) 05/07/2018 10:44 AM [employer] Body Mass Index 34.19 05/07/2018 10:44 AM [employer] Procedures * WI NASAL ENDOSCOPY,DX(Performed 05/07/2018) Performed for Nasal polyp * WI NASAL ENDOSCOPY,DX(Performed 01/01/2018) Performed for Nasal polyp, Chronic pansinusitis, Aspirin sensitivity * CT LIMITED FOLLOWUP STUDY(Performed 11/08/2017) Performed for Lung nodule * COMPREHENSIVE METABOLIC PANEL(Performed 11/08/2017) Performed for Urticaria * CBC W AUTO DIFFERENTIAL(Performed 11/08/2017) Performed for Urticaria * PT-INR [facility](Performed 11/08/2017) Performed for Urticaria * CT CHEST WO CONTRAST(Performed 10/23/2017) Performed for Lung nodule * CBC W AUTO DIFFERENTIAL(Performed 02/18/2017) * CBC W AUTO DIFFERENTIAL(Performed 02/18/2017) * PATHOLOGY TISSUE(Performed 02/18/2017) * TYPE + SCREEN PANEL(Performed 02/18/2017) * CT FACIAL BONES WO CONTRAST(Performed 01/23/2017) * LAB HISTORICAL RESULTS-ONBASE(Performed 08/10/2015) * CBC W AUTO DIFFERENTIAL(Performed 07/21/2015) * COMPLETE PFT W/WO BRONCHODILATOR(Performed 2015) Results * WI NASAL ENDOSCOPY,DX (05/07/2018 12:52 PM [employer]) Narrative Arik Cruz MD - 05/07/2018 12:52 PM [employer] Lyndsay Ayala MD 05/07/2018 12:52 PM Procedure: Rigid Nasal Endoscopy Anesthesia: Bilateral Nasal Cavities sprayed with Lidocaine and Neosynephrine Detail: Rigid nasal endoscopy performed bilaterally. Septum was midline. Right nasal cavity showed recurrence of polyps in the middle meatus and middle turbinate. Unable to see into middle meatus. Left nasal cavity showed recurrence of polyps in the middle meatus and middle turbinate. Unable to see into middle meatus. Patient tolerated well. Dr. Cruz was present for the entire exam. Lyndsay Ayala MD PROCEDURE/MINOR SURG ICAL ORDERABLES * WI NASAL ENDOSCOPY,DX (01/01/2018 1:38 PM CDT) Narrative Arik Cruz MD - 01/01/2018 1:38 PM CDT Arik Cruz MD 01/01/2018 1:38 PM Procedure: Nasal Endoscopy Anesthesia: Bilateral Nasal Cavity Sprayed with Lidocaine and Phenylephrine Detail: Rigid nasal endoscopy was performed in bilateral nasal cavity. This video was compared to his visit in May. There has been significant progression of the edema and polyposis. I am only able to clearly see within the left maxillary sinus. Other sinuses are blocked off by edema and early polyposis. His nasal cavity is widely patent and there are no polyps extending out of the middle meatus. Some minimal mucin, consistent in appearance with allergic mucin. Arik Cruz MD PROCEDURE/MINOR DANIEL GICAL ORDERABLES * CT LIMITED FOLLOWUP STUDY (11/08/2017 12:03 PM CDT) Anatomical Region Laterality Modality Computed Tomogra phy 11/08/2017 3:39 PM CDT Impressions 11/10/2017 7:47 PM CDT Impression: No intervention was performed as there was significant interval decrease in the size of left lower lobe nodule, now measuring 3 mm. Findings were discussed with referral physician Dr. Uriel Hooker. I Dr. Avila performed/was present throughout the procedure and provided the moderate sedation service. Please see nursing flow chart for more details. . This report was approved by Darin Quispe M.D. on 11/08/2017 3:43 PM . I, Dr. GRABIEL AVILA M.D. have personally reviewed and interpreted this examination/study. This report was electronically signed by GRABIEL AVILA M.D. on 11/18/2017 6:27 PM . Narrative 11/10/2017 7:47 PM CDT History: 57-year-old malepresenting for biopsy of left lower lobe pulmonary nodule. Patient has history of COPD, tobacco abuse, asthma andallergic rhinitis. Operators: 1.Dr. Avila, Attending Physician 2.Dr. Quispe, Resident Physician Anesthesia: None Procedure: Limited non-contrast CT examination of chest. Procedure in Detail: The procedure and possible complications were explained to the patient in detail, and informed consent was obtained. The patient was placed in a prone position on the CT table and a limited non-contrast CT examination chest was performed with radio-opaque grid markers over the region of interest. The study demonstrated significant decrease in the size of the previously described nodular opacity in the left lower lobe, now measuring 3mm. Given the findings no intervention was performed. Procedure Note Grabiel Avila MD - 09/03/2018 History: 57-year-old malepresenting for biopsy of left lower lobe pulmonary nodule. Patient has history of COPD, tobacco abuse, asthma andallergic rhinitis. Operators: 1.Dr. Avila, Attending Physician 2.Dr. Quispe, Resident Physician Anesthesia: None Procedure: Limited non-contrast CT examination of chest. Procedure in Detail: The procedure and possible complications were explained to the patient in detail, and informed consent was obtained. The patient was placed in a prone position on the CT table and a limited non-contrast CT examination chest was performed with radio-opaque grid markers over the region of interest. The study demonstrated significant decrease in the size of the previously described nodular opacity in the left lower lobe, now measuring 3mm. Given the findings no interventionwas performed. Impression: No intervention was performed as there was significant interval decrease in the size of left lower lobe nodule, now measuring 3 mm. Findings were discussed with referral physician Dr. Uriel Hooker. I Dr. Avila performed/was present throughout the procedure andprovided the moderate sedation service. Please see nursing flow chart for more details. . This report was approved by Darin Quispe M.D. on 11/08/2017 3:43 PM . I, Dr. GRABIEL AVILA M.D. have personally reviewed andinterpreted this examination/study. This report was electronically signed by GRABIEL AVILA M.D. on 11/18/2017 6:27 PM . Uriel Hooker MD CT ORDERABLES * PT-INR [facility] (11/08/2017 10:41 AM CDT) PT 12.1 12.1 - 14.8 Seconds 11/08/2017 10:55 AM [facility] INR 0.9 See Comment 11/08/2017 10:55 AM [facility] Comment: The suggested therapeutic range for standard coumadin (warfarin) therapy is an INR of 2.0-3.0. For high-risk patients (Mechanical Mitral Valve Prosthesis, etc.), the suggested prophylactic therapeutic range is an INR of 2.5-3.5. Blood BLOOD SPECIMEN / Unknown Venipuncture / Unknown 11/08/2017 10:41 AM CDT 11/08/2017 10:44 AM CDT Uriel Hooker MD LAB - COAGULATION OR DERABLES [facility] [address] [phone] * (ABNORMAL) CBC W AUTO DIFFERENTIAL (11/08/2017 10:41 AM CDT) Only the most recent of4 resultswithin the time period is included. WBC 6.9 3.5 - 10.5 10 3/uL 11/08/2017 10:48 AM [facility] RBC 5.23 4.30 - 5.70 10 6/uL 11/08/2017 10:48 AM [facility] Hemoglobin 15.4 13.5 - 17.5 g/dL 11/08/2017 10:48 AM [facility] Hematocrit 45.3 39.0 - 50.0 % 11/08/2017 10:48 AM [facility] MCV 86.6 81.0 - 97.0 fL 11/08/2017 10:48 AM [facility] MCH 29.4 28.0 - 34.0 pg 11/08/2017 10:48 AM [facility] MCHC 34.0 32.0 - 36.0 g/dL 11/08/2017 10:48 AM [facility] Platelet Count 214 150 - 400 10 3/uL 11/08/2017 10:48 AM [facility] RDW-SD 44.7 36.0 - 50.0 fL 11/08/2017 10:48 AM [facility] RDW-CV 14.2 11.2 - 14.8 % 11/08/2017 10:48 AM [facility] MPV 9.9 9.3 - 12.8 fL 11/08/2017 10:48 AM [facility] Neutrophils % 69.3 35.0 - 70.0 % 11/08/2017 10:48 AM [facility] Lymphocytes % 16.9(L) 19.7 - 55.1 % 11/08/2017 10:48 AM [facility] Monocytes % 8.3 3.0 - 15.0 % 11/08/2017 10:48 AM [facility] Eosinophils % 5.4 0.0 - 6.0 % 11/08/2017 10:48 AM [facility] Basophil % 0.1 0.0 - 1.5 % 11/08/2017 10:48 AM [facility] Neutrophils Absolute 4.7 1.6 - 7.0 10 3/uL 11/08/2017 10:48 AM [facility] Lymphocyte Absolute 1.2 0.8 - 2.9 10 3/uL 11/08/2017 10:48 AM [facility] Monocytes Absolute 0.57 0.14 - 0.66 10 3/uL 11/08/2017 10:48 AM [facility] Eosinophils Absolute 0.37(H) 0.00 - 0.22 10 3/uL 11/08/2017 10:48 AM [facility] Basophils Absolute 0.01 0.00 - 0.06 10 3/uL 11/08/2017 10:48 AM [facility] Immature Granulocytes % 0.9 0.0 - 1.0 % 11/08/2017 10:48 AM [facility] Blood BLOOD SPECIMEN / Unknown Venipuncture / Unknown 11/08/2017 10:41 AM CDT 11/08/2017 10:44 AM CDT Uriel Hooker MD LAB - HEMATOLOGY ORD ERABLES [facility] [address] [phone] * (ABNORMAL) COMPREHENSIVE METABOLIC PANEL (11/08/2017 10:41 AM CDT) BUN 10 7 - 26 mg/dL 11/08/2017 11:02 AM [facility] Creatinine 1.0 0.6 - 1.2 mg/dL 11/08/2017 11:02 AM [facility] Sodium 140 136 - 145 mmol/L 11/08/2017 11:02 AM [facility] Potassium 3.7 3.5 - 4.5 mmol/L 11/08/2017 11:02 AM [facility] Chloride 101 98 - 107 mmol/L 11/08/2017 11:02 AM [facility] CO2 30(H) 22 - 29 mmol/L 11/08/2017 11:02 AM [facility] Glucose 94 70 - 115 mg/dL 11/08/2017 11:02 AM [facility] Calcium 9.6 8.4 - 10.2 mg/dL 11/08/2017 11:02 AM [facility] Protein Total 7.1 6.0 - 8.3 g/dL 11/08/2017 11:02 AM [facility] Albumin 3.5 3.4 - 5.0 g/dL 11/08/2017 11:02 AM [facility] Bilirubin Total 0.6 0.2 - 1.2 mg/dL 11/08/2017 11:02 AM [facility] Alkaline Phosphatase 90 40 - 150 Units/L 11/08/2017 11:02 AM [facility] ALT 46 0 - 55 Units/L 11/08/2017 11:02 AM [facility] AST 22 5 - 34 Units/L 11/08/2017 11:02 AM [facility] Anion Gap 13 8 - 18 11/08/2017 11:02 AM [facility] BUN/Creatinine Ratio 10 7 - 23 11/08/2017 11:02 AM [facility] Osmolality Calculated 289 270 - 300 mOsm/kg 11/08/2017 11:02 AM [facility] Albumin/Globulin Ratio 1.0(L) 1.1 - 2.3 11/08/2017 11:02 AM [facility] eGFR >60 >60 mL/min/1.7 3 m2 11/08/2017 11:02 AM [facility] Blood BLOOD SPECIMEN / Unknown Venipuncture / Unknown 11/08/2017 10:41 AM T 11/08/2017 10:44 AM [facility] Uriel Hooker MD LAB - CHEMISTRY [place] [facility] Organization Address City/State/ZIP Co de Phone Number [facility] [address] [place] [address] * CT CHEST WO CONTRAST (10/23/2017 8:59 AM CDT) Anatomical Region Laterality Modality Chest Computed Tomogra phy 10/23/2017 9:06 AM CDT Impressions 10/23/2017 11:22 AM CDT IMPRESSION: 1. A 3.1 x 1.1 x 3.4 cm mass in as well as 1.6 cm spiculated nodule in the left lower lobe are concerning for malignancy. Comparison with the outside imaging study is recommended if this becomes available. Biopsy versus PET/CT should be considered. 2. Numerous additional subcentimeter pulmonary nodules as above. Dictated by Ez Martinez MD (energy operations vice president). I, Dr. BUCKY RUBY M.D. have personally reviewed and interpreted this examination/study. This report was electronically signed by BUCKY RUBY M.D. on 10/23/2017 11:22 AM . Narrative 10/23/2017 11:22 AM CDT EXAMINATION: Computed tomography (CT) of the chest without contrast HISTORY: Follow-up for reported spiculated nodule in the left lower lobe on outside hospital CT chest dated 07/02/2017 from [facility]. TECHNIQUE: CT of the chest was performed without contrast according to standard protocol. COMPARISON: No prior study is available for comparison. FINDINGS: Evaluation of visceral and vascular structures is degraded due to lack of intravenous contrast administration. There is a left-sided three-vessel aortic arch. The main pulmonary artery is normal in caliber. The aorta is atherosclerotic but normal in caliber. A 3.1 x 1.1 x 3.4 cm mass in the medial aspect of the left lower lobe (series 4 image 77) with surrounding groundglass opacities is seen. There is a broad contact with the pleura with surrounding pleural thickening. Otherwise, no pleural effusion or focal pleural thickening is identified. There is no evidence of pneumothorax. A 4 mm subpleural nodule in the right upper lobe is seen (series 4 image 18). A 3 mm nodule is seen in the right middle lobe (series 4 image 51). A 1.6 cm spiculated nodule is seen in the left lower lobe (series 4 image 42). A 0.8 cm nodule is seen in the left lower lobe (series 4 image 75). The trachea is patent and midline. The heart size is normal. No pericardial effusion is present. Multiple mildly prominent mediastinal lymph nodes are seen. No mediastinal, supraclavicular, or axillary lymphadenopathy is seen. Bilateral hilar and mediastinal calcified lymph nodes are noted. The visible portions of the liver, spleen, pancreas, adrenal glands, kidneys, stomach, and bowel are normal. Bone windows demonstrate no suspicious lytic or blastic lesions. The visible osseous structures are intact. Procedure Note Bucky Ruby MD - 10/23/2017 EXAMINATION: Computed tomography (CT) of the chest without contrast HISTORY: Follow-up for reported spiculated nodule in the left lower lobe on outside hospital CT chest dated 07/02/2017 from [facility]. TECHNIQUE: CT of the chest was performed without contrast according to standard protocol. COMPARISON: No prior study is available for comparison. FINDINGS: Evaluation of visceral and vascular structures is degraded due to lackof intravenous contrast administration. There is a left-sided three-vessel aortic arch. The main pulmonaryartery is normal in caliber. The aorta is atherosclerotic but normal incaliber. A 3.1 x 1.1 x 3.4 cm mass in the medial aspect of the left lower lobe (series 4 image 77) with surrounding groundglass opacities is seen.There is a broad contact with the pleura with surrounding pleural thickening. Otherwise, no pleural effusion or focal pleural thickening isidentified. There is no evidence of pneumothorax. A 4 mm subpleural nodule in the right upper lobe is seen (series 4 image 18). A 3 mm nodule is seen inthe right middle lobe (series 4 image 51). A 1.6 cm spiculated nodule isseen in the left lower lobe (series 4 image 42). A 0.8 cm nodule is seen inthe left lower lobe (series 4 image 75). The trachea is patent and midline. The heart size is normal. No pericardial effusion is present. Multiple mildly prominent mediastinal lymph nodes are seen. No mediastinal, supraclavicular, or axillary lymphadenopathy is seen. Bilateral hilarand mediastinal calcified lymph nodes are noted. The visible portions of the liver, spleen, pancreas, adrenal glands, kidneys, stomach, and bowel are normal. Bone windows demonstrate no suspicious lytic or blastic lesions. The visible osseous structures are intact. IMPRESSION: 1. A 3.1 x 1.1 x 3.4 cm mass in as well as 1.6 cm spiculated nodule inthe left lower lobe are concerning for malignancy. Comparison with theoutside imaging study is recommended if this becomes available. Biopsy versus PET/CT should be considered. 2. Numerous additional subcentimeter pulmonary nodules as above. Dictated by Ez Martinez MD (energy operations vice president). I, Dr. BUCKY RUBY M.D. have personally reviewed and interpretedthis examination/study. This report was electronically signed by BUCKY RUBY M.D. on10/23/2017 11:22 AM . Uriel Hooker MD CT ORDERABLES * PATHOLOGY TISSUE (02/18/2017 10:32 AM [employer]) Surgical Pathology Tissue ACCESSION No: [id number] CLINICAL HISTORY: Bilateral total ethmoidectomy, maxillary antrostomy, frontal sinusotomy, sphenoidectomy, turbinectomy, severe persistent asthma with acute exacerbation, nasal polyps. FINAL DIAGNOSIS: Sinus contents, bilateral, excision: - Chronic sinusitis, see comment. - GMS stain negative for fungal elements. - Negative for malignancy. MICROSCOPIC DESCRIPTION AND COMMENT: Sections of the bilateral sinus contents for perm show fragments of bone, blood clot, and benign respiratory mucosa. The respiratory mucosa has mixed inflammation comprised by lymphocytes, plasma cells, and eosinophils. The eosinophils are somewhat variable in distribution with some areas up to 50 eosinophils/HPF. A GMS stain is negative for fungal elements. There is no evidence of malignancy. These findings are consistent with chronic allergic sinusitis. MS/met GROSS DESCRIPTION: The specimen is received fixed in formalin in one container labeled with the patient's name, Bucky Galeano, and bilateral sinus contents for perm , and is within a nylon sock which is opened revealing a collection of innumerable soft, spongy, dark red to bright red with black speckles measuring 0.2 to 0.4 cm in greatest dimension, measuring 16.3 x 4.2 x 1.1 cm, in aggregate. Business And Financial Counsel sections are submitted in cassettes A1 through A5. EMS/met The performance characteristics of all immunohistochemical and indirect immunofluorescence stains (if any) cited in this report were determined by the [facility] of [facility]. Some of these tests were developed by our own laboratory and have not been cleared or approved by the US Food and Drug Administration. The FDA does not require this test to go through premarket FDA review. These tests are used for clinical purposes. They should not be regarded as investigational or for research. This laboratory is certified under the Clinical Laboratory Improvement Amendments (CLIA) as qualified to perform high complexity clinical laboratory testing. This case has been personally reviewed and interpreted by the attending (teaching) pathologist. Final Diagnosis performed by Aidan Wheeler DO. Electronically signed 02/20/2017 [facility] ([facility]) Biopsy, Excision (Nasal/Sinus Polyps) 02/18/2017 10:32 AM [employer] 02/18/2017 12:02 PM [employer] Narrative [facility] ([facility]) - 02/20/2017 3:15 PM [employer] Pre-op diagnosis: NASAL POLYPS Arik Cruz MD LAB - PATHOLOGY/CYT OLOGY ORDERABLES Performing Organization Address [facility] [[email or web address]] Co de Phone Number [facility] ([facility]) [facility] [address] [phone] * TYPE + SCREEN PANEL (02/18/2017 9:00 AM [employer]) Typem A NEG [facility] Antibody Screen NEG [facility] Blood specimen (specimen) 02/18/2017 9:00 AM [employer] 02/18/2017 9:15 AM [employer] Arik Cruz MD LAB - BLOOD BANK OR DERABLES Performing Organization Address [facility] [[email or web address]] Co de Phone Number [facility] [address] * CT FACIAL BONES WO CONTRAST (01/23/2017 11:42 AM [employer]) Anatomical Region Laterality Modality Head Other Impressions 01/23/2017 3:14 PM [employer] IMPRESSION: 1. Complete opacification of the frontal, ethmoid, maxillary and sphenoid sinuses as well as the nasal cavities, likely due to polyposis. No complications. This report was electronically signed by DARON STOUT M.D. on 01/23/2017 3:14 PM . Narrative 01/23/2017 3:14 PM [employer] EXAMINATION: Computed tomography (CT) of the maxillofacial bones, orbits, and paranasal sinuses without contrast HISTORY: nasal congestion, polyps TECHNIQUE: CT of the maxillofacial bones, orbits, and paranasal sinuses was performed without contrast according to standard protocol. FINDINGS: Comparison is made to prior outside hospital Sinus CT dated 12/28/2016. The orbits appear normal. Again seen is complete opacification of the frontal, maxillary, sphenoid and ethmoid sinuses as well as the nasal cavities. The hyperattenuating material within the sinuses could represent fungal overgrowth versus inspissated secretions. There is mild sclerotic changes and wall thickening of the frontal and sphenoid sinuses, indicating a chronic process. No soft tissue abnormalities are identified to suggest complication. The hard palate, mandible, and temporomandibular joints appear normal. No acute facial bone fractures are identified. The mastoid air cells are clear. No soft tissue abnormality is identified. Procedure Note Daron Stout MD - 06/14/2017 EXAMINATION: Computed tomography (CT) of the maxillofacial bones, orbits,and paranasal sinuses without contrast HISTORY: nasal congestion, polyps TECHNIQUE: CT of the maxillofacial bones, orbits, and paranasal sinuseswas performed without contrast according to standard protocol. FINDINGS: Comparison is made to prior outside hospital Sinus CT dated1. The orbits appear normal. Again seen is complete opacification of thefrontal, maxillary, sphenoid and ethmoid sinuses as well as the nasalcavities. The hyperattenuating material within the sinuses could representfungal overgrowth versus inspissated secretions. There is mild sclerotic changes and wall thickening of thefrontal and sphenoid sinuses, indicating a chronic process. No soft tissueabnormalities are identified to suggest complication. The hard palate,mandible, and temporomandibular joints appear normal. No acute facial bone fractures are identified. Themastoid air cells are clear. No soft tissue abnormality is identified. IMPRESSION IMPRESSION: 1. Complete opacification of the frontal, ethmoid, maxillary and sphenoidsinuses as well as the nasal cavities, likely due to polyposis. Nocomplications. This report was electronically signed by DARON STOUT M.D. on 01/23/20173:14 PM . Arik Cruz MD CT ORDERABLES * LAB HISTORICAL RESULTS-ONBASE (08/10/2015) 08/10/2015 Narrative [facility] - 08/17/2015 12:18 PM CDT Historical Provider LAB - CHEMISTRY O RDERABLES [facility] [address] * COMPLETE PFT W/WO BRONCHODILATOR (2015 2:10 PM CDT) Impressions [facility] - 2015 2:[address] [facility] DEPARTMENT OF PULMONARY, CRITICAL CARE, AND SLEEP MEDICINE PULMONARY FUNCTION TESTS Bucky Galeano 54 y.o. Body mass index is 27.75 kg/(m^2). 2015 INTERPRETATION Please see technologist's comments mentioned above. SPIROMETRY: Forced vital capacity is normal. FEV1 is normal. FEV1/FVC ratio is reduced. There is no significant response to bronchodilator administration. The inspection of the patient's flow-volume loops shows normal configuration of the inspiratory and concavity and flow limitation of the expiratory limbs. LUNG VOLUMES: Lung volumes by body plethysmography show a mildly increased total lung capacity and severely increased residual volume. DLCO: Diffusing capacity unadjusted for Hb and COHb is within normal limits. AIRWAY RESISTANCE: The airway resistance is increased (reversible after bronchodilators) and the specific conductance is reduced. IMPRESSION: 1. Mild obstructive ventilatory limitation with no significant response to bronchodilator administration. This does not preclude the use of bronchodilator therapy if clinically indicated. 2. Severe air trapping with mild hyperinflation. 3. There is no previous study available for comparison. Hadley Benitez MD Pulmonary & Critical Care Fellow Division of Pulmonary, Critical Care and Sleep Medicine [facility] Pager: [phone] ATTENDING PHYSICIAN ATTESTATION/CÉSAR RAMÍREZ M.D.: I have personally reviewed and interpreted the above test and I have made the necessary changes if needed to the above interpretation. Narrative Procedure Note Provider, MD Paul - 08/23/[address] [facility] DEPARTMENT OF PULMONARY, CRITICAL CARE, AND SLEEP MEDICINE PULMONARY FUNCTION TESTS Bucky Galeano 54 y.o. Body mass index is 27.75 kg/(m^2). 2015 INTERPRETATION Please see technologist's comments mentioned above. SPIROMETRY: Forced vital capacity is normal. FEV1 is normal. FEV1/FVC ratio is reduced. There is no significant response to bronchodilator administration. The inspection of the patient's flow-volume loops shows normal configuration of the inspiratory and concavity and flow limitation of the expiratory limbs. LUNG VOLUMES: Lung volumes by body plethysmography show a mildly increased total lung capacity and severely increased residual volume. DLCO: Diffusing capacity unadjusted for Hb and COHb is within normal limits. AIRWAY RESISTANCE: The airway resistance is increased (reversible after bronchodilators) and the specific conductance is reduced. IMPRESSION: 1. Mild obstructive ventilatory limitation with no significant response to bronchodilator administration. This does not preclude the use of bronchodilator therapy if clinically indicated. 2. Severe air trapping with mild hyperinflation. 3. There is no previous study available for comparison. Hadley Benitez MD Pulmonary & Critical Care Fellow Division of Pulmonary, Critical Care and Sleep Medicine [facility] Pager: [phone] ATTENDING PHYSICIAN ATTESTATION/CÉSAR RAMÍREZ M.D.: I have personally reviewed and interpreted the above test and I have made the necessary changes if needed to the above interpretation. Aidan Frank MD RESPIRATORY THERAPY ORDERABLES [facility] Care Teams Associate Drafter Relationship Specialty Start Date End Date John Stout MD PCP - General 03/22/15
--- OUTSIDE RECORDS SUMMARY | 2024-05-24 18:11 | XMS_ITS | Referral Summary ---
Author Organization [facility] Address [address] [place] [address] Care Team Providers Care Fish Straightener Name Role Phone John Stout MD Primary Care Provider Encounters Date Type Department Care Team Description 04/29/2024 Telephone [facility] [address] [facility] [place] [address] Avani Lopes RPh 03/02/2024 Telephone [facility] Allergy and Immunology [address] [place] [phone] Sarah Anderson NP 03/02/2024 1:26 PM CONCRETE STONE FABRICATOR - 03/02/2024 11:59 PM CONCRETE STONE FABRICATOR Hospital Encounter [facility] Radiology at the [address] [address] Severe persistent asthma with acute exacerbation (HCC); Upper respiratory tract infection, unspecified type Discharge Disposition: Discharge to home or self care 03/02/2024 1:00 PM CONCRETE STONE FABRICATOR Office Visit [facility] Immunology [address] [place] [phone] Sarah Anderson NP Severe persistent asthma with acute exacerbation (HCC) (Primary Dx); Upper respiratory tract infection, unspecified type 02/28/2024 Telephone [facility] Immunology [address] [place] [phone] Rocío Elena from Last 3 Months Allergies Active Allergy Reactions Criticality Noted Date [...] alveolitis 09/25/2013 Chronic obstructive pulmonary disease 03/16/2013 Social History Tobacco Use Types Packs/Day Years [...] on file Legal Sex Male 9:50 AM CONCRETE STONE FABRICATOR Gender Identity Not on file Sexual Orientation Not on file Last Filed Vital Signs Vital Sign Reading Time Taken Comments Blood Pressure 128/81 03/02/2024 12:43 PM CONCRETE STONE FABRICATOR Pulse 74 03/02/2024 12:43 PM CONCRETE STONE FABRICATOR Temperature 36.4 C (97.5 F) 03/02/2024 12:43 PM CONCRETE STONE FABRICATOR Respiratory Rate 18 03/02/2024 12:43 PM CONCRETE STONE FABRICATOR Oxygen Saturation 91% 03/02/2024 12:43 PM CONCRETE STONE FABRICATOR Inhaled Oxygen Concentration - - Weight 95.7 kg (211 lb) 03/02/2024 12:43 PM CONCRETE STONE FABRICATOR Height 175.3 cm (5' 9 ) 03/02/2024 12:43 PM CONCRETE STONE FABRICATOR Body Mass Index 31.16 03/02/2024 12:43 PM CONCRETE STONE FABRICATOR Plan of Treatment Not on file Procedures Procedure Name Priority Date/Time Associated Diagnosis Comments XR CHEST PA LATERAL 2 VIEWS Schedule Routine, Read Routine (OP Routine) 03/02/2024 1:30 PM CONCRETE STONE FABRICATOR Severe persistent asthma with acute exacerbation (HCC) Upper respiratory tract infection, unspecified type CT ABDOMEN PELVIS WO CONTRAST ED 09/01/2020 11:39 PM CDT from Last 3 Months or Most Recently Relevant to Health Maintenance Results * XR Chest PA Lateral 2 Views (03/02/2024 1:30 PM CONCRETE STONE FABRICATOR) Anatomical Region Laterality Modality Body, Chest N/A Computed Radiogr aphy 03/02/2024 1:49 PM CONCRETE STONE FABRICATOR Impressions 03/02/2024 2:02 PM CONCRETE STONE FABRICATOR Comparison made to topogram from chest CT dated 10/30/2013. Lungs are hyperinflated. No pulmonary consolidation, pleural effusion, or pneumothorax. Cardiomediastinal silhouette is normal. Dictated by: Hubert Long MD The radiology attending physician has personally reviewed this study, and had reviewed and/or edited this written report and agrees with it. Electronically signed by: Cam Lisa M.D. Narrative 03/02/2024 2:02 PM CONCRETE STONE FABRICATOR EXAMINATION: 2 view chest radiograph Procedure Note [...] it. Electronically signed by: Cam Lisa M.D. us Sarah Anderson PRINCIPAL JAVA SOFTWARE ENGINEER IMG XR PROCEDURES Final Result * CT Abdomen [...] A AD RADIOLOGIST, ANY QUESTIONS PLEASE CALL [phone] Narrative 09/02/2020 1:05 AM CDT PROCEDURE INFORMATION: [...] BY A [facility] RADIOLOGIST, ANY QUESTIONS PLEASE [phone] Rocío Lindquist MD IMG CT PROCEDURES Final Result from Last 3 Months or Most Recently Relevant to Health Maintenance Insurance [facility] MEDICARE MEDICARE Care Teams Fish Straightener Relationship Specialty [place] [address] [place] [address] PCP - General Internal Medicine 12/15/21
--- OUTSIDE RECORDS SUMMARY | 2024-05-24 18:11 | XMS_ITS | Continuity of Care Document ---
Author Organization [facility] Address [address] [facility] [address] [place] [address] Phone Care Team Providers Care Tenant Coordinator Name Role Phone Jordin Baker MD Unavailable Unavailable Allergies, Adverse Reactions, Alerts Substance Reaction Status Criticality aspirin Respiratory arrest Active No Inform ation NSAIDS (Non-Steroidal Anti-I nflammatory Drug) Respiratory arrest Active No Information Medications Medication Instructions Dosage Effective Dates (start - stop) Status Comments DUPIXENT PFS (2-PK) 300MG/2ML INJECT 1 SYRINGE UNDER THE SKIN EVERY OTHER WEEK - Active Symbicort 160 mcg-4.5 mcg/actuation HFA aerosol inhaler inhale 2 puff by inhalation route 2 times every day in the morning and evening 2.00 puff - Active albuterol sulfate 0.63 mg/3 mL solution for nebulization inhale 3mL by nebulization every 4-6 hours as needed - Active alprazolam 0.25 mg tablet take 1 tablet by oral route 3 times every day as needed 0.25 MG - Active cetirizine 10 mg tablet take 1 tablet by oral route every day 10 MG - Active Benadryl 25 mg capsule take 2 capsule by oral route every 4 - 6 hours as needed 50 MG - Active ipratropium 0.5 mg-albuterol 3 mg (2.5 mg base)/3 mL nebulization soln inhale 3 milliliter by nebulization route 4 times every day as needed 3.00 milliliter - Active albuterol sulfate HFA 90 mcg/actuation aerosol inhaler inhale 2 puff by inhalation route every 4 - 6 hours as needed 180 MCG - Active Procedures Procedure Date Est (Level 4) OFFICE/OUTPATIENT VISIT Wy Health Risk Assesment Patient Focused Ja Est (Level 5) OFFICE/OUTPATIENT VISIT Ja Less Than 24 Hour Notice Of Appointment Cancellation Health Risk Assesment Patient Focused Se Est (Level 4) OFFICE/OUTPATIENT VISIT Se Highly Complex Drug Administration (Biol ogic) Dupixent New (Level 4) OFFICE/OUTPATIENT VISIT Ju Advance Directives Directive Yes / No Effective Date File Name No Information Encounters Encounter Description Practice Location Reason(s) For Visit Diagnoses Date Provider Providers Copied on Encounter [facility], [address] [place] [address], [id number], tel:[phone] [facility] No Information 2 Samuel Cheshil. [address] [place], [address], [place]. tel:[phone] Referring Provider: Deyanira Lance, [address] [place] [address] [address], [place], [facility]. tel:[phone] [facility], [address] [place] [address], [id number], tel:[phone] [address] [place] [address] No Information 2 Samuel Cheshil. [address] [place], [address], [place]. tel:[phone] Referring Provider: Deyanira Lance, [facility] [address], [place], [address]. tel:[phone] Est (Level 4) OFFICE/OUTPA TIENT VISIT [facility], [address] [place] [address], [id number], tel:[phone] [address] [place] [address] COVID vaccine questions (chief complaint) Adverse effect of other NSAIDs, subsequent encounterSevere persistent asthmaChronic sinusitisEncount er for immunization 1 Mike Umana. [address] [facility] , [address], [place], [id number], . tel:[phone] Referring Provider: Deyanira Lance, [address] [place] [address] [address] , [place], [place], [facility]. tel:[phone] Est (Level 5) OFFICE/OUTPA TIENT VISIT [facility], [address] [facility] [place], [place], [id number], tel:[phone] [facility] AERD (chief complaint) Severe persistent asthmaChronic sinusitisPolyp of nasal cavityAllergic rhinitisDermatit is, unspecifiedAdver se effect of other NSAIDs, subsequent encounter 1 Denisha Perez. [address] [facility], [place], [address], [place]. tel:[phone] Referring Provider: Deyanira Lance, [address] [place] [address] [address] , [place], [place], [facility]. tel:[phone] [facility], [address] [place] [address] [place], [place], [id number], [place] tel:[phone] [facility] No Information Feb- 0 Wan Hernandez. [address] [facility] [address], [place], [address], [place]. tel:[phone] Referring Provider: Deyanira Lance, [address] [place] [address] [address] , [place], [place], [facility]. tel:[phone] Est (Level 4) OFFICE/OUTPA TIENT VISIT [facility], [address] [place] [address] [place], [place], [id number], [place] tel:[phone] [facility] AERD (chief complaint) Severe persistent asthmaChronic sinusitisPolyp of nasal cavityAdverse effect of other NSAIDs, subsequent encounterAllergi c rhinitisDermatit is, unspecified Sep-0 0 Wan Hernandez. [address], [place], [address], [place]. tel:[phone] Referring Provider: Deyanira Lance, [address], [place], [address]. tel:[phone] New (Level 4) OFFICE/OUTPA TIENT VISIT [facility], [address] [facility] [address], [place], [place], [id number], [place] tel:[phone] [facility] AERD (chief complaint) Severe persistent asthma with (acute) exacerbationChro nicolas sinusitisPolyp of nasal cavityAdverse effect of other NSAID, initial encounterAllergi c rhinitisDermatit is, unspecified 0 0 Palrock Hernandez. [address], [place], [address], [place]. tel:[phone] Referring Provider: Deyanira Lance, [address], [place], [address]. tel:[phone] Family History Family Member Type Diagnosis Age At Onset Problem No family history of Hives Problem No family history of Sinusit is Problem No family history of Eczema Problem No family history of Cystic fibrosis Problem No family history of Asthma Problem No family history of Allergi es, food Problem No family history of Eosinop hilic esophagitis Problem No family history of Heredit mitch angioedema Problem No family history of Allergi es, environmental Problem No family history of Immunod eficiency disorder Payers Payer name Insurance type Covered democrat ID Authoriza tion(s) No Information Social History Type Description Quantity Date Captured Comments Alcohol Use Details Unknown Caffeine Use Details Unknown Tobacco Use Status Smoking Status No Information Sex Male Chief Complaint And Reason For Visit No Information Reason For Referral Reason For Referral No Information History Of Present Illness Encounter Date Complaint History Of Prese nt Illness COVID vaccine questions LV: 03/31Today's visit is a virtual visit via [employer]. He presents today for questions regarding the COVID-19 vaccine. He has history of AERD, nasal polyps, chronic sinusitis and severe asthma with COPD overlap. No known reactions to polyethylene glycol. He has never taken miralax, but he has had a colonoscopy and tolerated the prep without issue. He has had reactions with NSAIDS (as below), but no reactions outside of the context of NSAIDS. He tolerates tylenol. No reaction to vaccines or injectable medications. He has an up-to-date EAI. Notes: He developed chronic sinusitis with nasal polyposis, severe asthma with COPD overlap and aspirin/NSAID sensitivity as an adult, which he linked to a prolonged GI illness. He has been hospitalized multiple times in recent years due to asthma/COPD exacerbations. He started Dupixent for on 11/17/19, which has lead to significant improvement in asthma, sinusitis, and polyposis symptoms. It is working g reat. No steroids or antibiotics since starting Dupixent. He continues on Symbicort 160 2 puffs BID, and duonebs prn. He has undergone 3 nasal polypectomy surgeries, most recently in Spring 2017. No significant changes to his past medical, surgical, or environmental history since his last visit. He reports throat closing sensation and difficulty breathing after taking aspirin and oral NSAIDs. He was intubated once for respiratory failure after accidentally receiving an IV NSAID. He can take acetaminophen without reaction.Aeroallergen testing in 2015- positive to m ultiple tests O kyside labwork/radiography:04/03/19 - CBC/diff showed BDK=090, total VaV=[id number] 02/01/19 - no active cardiopulmonary disease AERD LV: 11/17/19Ken Galeano is a 59-year-old male with aspirin-exacerbated respiratory disease (AERD)/Samter's triad and COPD who returns today for interval evaluation and management. He was accompanied by his for today's visit.Ken developed chronic sinusitis with nasal polyposis, severe asthma with COPD overlap and aspirin/NSAID sensitivity as an adult, which he linked to a prolonged GI illness. He gets frequent bronchitis and COPD/asthma exacerbations. His last course of antibiotics and oral steroids were in September 2019. He takes Symbicort 2 puffs BID (but forgets his evening dose often) and uses DuoNebs and albuterol multiple times per day with incomplete relief. He has been hospitalized multiple times in recent years due to asthma/COPD exacerbations. He has undergone 3 nasal polypectomy surgeries, most recently in Spring 2017 at [facility]. He reports improvement in ability to breathe through his nose, taste, and smell since starting Dupixent. He reports throat closing sensation and difficulty breathing after taking aspirin and oral NSAIDs. He was intubated once for respiratory failure after accidentally receiving an IV NSAID. He can take acetaminophen without reaction.He reports frequent watery eyes and throat tightness due to certain inhalants. He underwent allergy testing at [facility] in 2016 and reportedly had multiple positive tests. He takes various OTC antihistamines on a daily basis with incomplete relief. He has 3 cats at home and reportedly had positive skin testing to cat dander. He has never received immunotherapy. He reports that his symptoms resolve when no longer around the inhalants. Rash now resolved.Outside labwork/radiography:04/03/19 - CBC/diff showed KUI=673, total GsP=[id number] 02/01/19 - no active cardiopulmonary diseaseHe started Dupixent on 11/17/19 for his chronic sinusitis with nasal polyposis and jssyprvmu-kh-gejdwai asthma, and he continues to receive 300mg (1 injection) at home every 2 weeks. He or his are self-administering the injections at home. Ken reports excellent life changing symptom improvement since starting Dupixent. He reports prior to Dupixent, he was in the ER or hospital every 6 weeks. Since starting Dupixent, he has had no ER trips or oral steroids. He notes his oxygen saturation has been better 92-24%. He states he was living in the 70% range and using O2 all the time" prior to Dupixent. He now only needs his home O2 occasionally. ACT today today (previously 10/09 on 11/17/19). Uses albuterol or duoneb 1-3 times per day. Carries MDI but prefers nebulizer. He last received Dupixent on 03/22/20. While his asthma control is significantly improved, he reports since , his legs feel numb sometimes. He has joint pain and swelling in his knees, ankles, and feet. He will also have pain and swelling in his hands. He reports he feels unbalanced. When asked to rate these symptoms on a scale of 1-10, he reports today they are a 9/10 but states some days it's a 12. His reports he struggles to walk sometimes. He also reports a history of arthritis and takes Tylenol as needed for this. AERD LV: 10/05/19 (mariia decker)I had the pleasure of seeing Ken Galeano, a 59-year-old male with aspirin-exacerbated respiratory disease (AERD)/Samter's triad and COPD who returns today for interval evaluation and management and initiation of Dupixent. He was accompanied by his for today's visit.He developed chronic sinusitis with nasal polyposis, severe asthma with COPD overlap and aspirin/NSAID sensitivity as an adult, which he linked to a prolonged GI illness. He gets frequent bronchitis and COPD/asthma exacerbations, requiring treatment with antibiotics and oral steroids multiple times per year, most recently started on 08/12/19. He currently complains of increased wheezing, cough and shortness of breath, and his current O2 sat at rest on room air is 89%. He uses O2 per nasal cannula at night and is supposed to use 2L with exertion. His last course of antibiotics and oral steroids were in September 2019. He takes Symbicort 2 puffs BID and uses DuoNebs and albuterol multiple times per day with incomplete relief. Current ACT score is 7/25. He has been hospitalized multiple times in recent years due to asthma/COPD exacerbations.He has undergone 3 nasal polypectomy surgeries, most recently in Spring 2017 at [facility]. He thinks his polyps have recurred again. He reports no sense of smell or taste in many years and reduced nasal airflow. He previously used Flonase daily but stopped due to lack of efficacy.He reports throat closing sensation and difficulty breathing after taking aspirin and oral NSAIDs. He was intubated once for respiratory failure after accidentally receiving an IV NSAID. He can take acetaminophen without reaction.He reports frequent watery eyes and throat tightness due to certain inhalants. He underwent allergy testing at [facility] in 2016 and reportedly had multiple positive tests (records requested). He takes various OTC antihistamines on a daily basis with incomplete relief. He has 3 cats at home and reportedly had positive skin testing to cat dander. He has never received immunotherapy.He also reports a chronic itchy patch on his right lower leg which does not improve with prescription strength topical steroids and antifungals, present since his AERD symptoms started. He now has similar rash on his upper chest, which has improved since the initial visit. He has never seen a side door worker. no improvement with topical steroids/antifungalsHe denies a history of food allergies, urticaria/angioedema, contact dermatitis, latex allergy or stinging insect hypersensitivity.Outside labwork/radiography:04/03/19 - CBC/diff showed VFI=611, total NfQ=[id number] 02/01/19 - no active cardiopulmonary diseaseHe was recently approved by his insurance to start Dupixent for his chronic sinusitis with nasal polyposis and dgvaillzh-sp-vuievam asthma, and he will receive his 600mg loading dose in the office today with training. He or his will then be self-administering the injections at home every 2 weeks.SHx: Lives in [place] with and daughter. House built in 1890s, renting for 9 years. 3 cats. Window A/C, gas heat. No carpet in [place]. Partially finished basement, damp but no visible mold. Smokes - 1 ppd x 40 years. Occasional EtOH. 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 AERD I had the pleasu re of seeing Ken Galeano, a 59-year-old male with aspirin-exacerbated respiratory disease (AERD)/Samter's triad and COPD who presents today at the request of Dr. Craven of Pulmonology in consultation regarding his uncontrolled respiratory disease. He was alone for today's visit.He developed chronic sinusitis with nasal polyposis, severe asthma with COPD overlap and aspirin/NSAID sensitivity as an adult, which he linked to a prolonged GI illness. He gets frequent bronchitis and COPD/asthma exacerbations, requiring treatment with antibiotics and oral steroids multiple times per year, most recently started on 08/12/19. He currently complains of increased wheezing, cough and shortness of breath, and his current O2 sat at rest on room air is 84-86%. He uses O2 per nasal cannula at night and is supposed to use 2L with exertion. He already contacted his adon this morning and antibiotics and oral steroids have already been called in. He takes Symbicort 2 puffs BID and uses DuoNebs and albuterol multiple times per day with incomplete relief. Current ACT score is 1125. He has been hospitalized multiple times in recent years due to asthma/COPD exacerbations.He has undergone 3 nasal polypectomy surgeries, most recently in Spring 2017 at [facility]. He thinks his polyps have recurred again. He reports no sense of smell or taste in many years and reduced nasal airflow. He previously used Flonase daily but stopped due to lack of efficacy.He reports throat closing sensation and difficulty breathing after taking aspirin and oral NSAIDs. He was intubated once for respiratory failure after accidentally receiving an IV NSAID. He can take acetaminophen without reaction.He reports frequent watery eyes and throat tightness due to certain inhalants. He underwent allergy testing at [facility] in 2016 and reportedly had multiple positive tests (records requested). He takes various OTC antihistamines on a daily basis with incomplete relief. He has 3 cats at home and reportedly had positive skin testing to cat dander. He has never received immunotherapy.He also reports a chronic itchy patch on his right lower leg which does not improve with prescription strength topical steroids and antifungals, present since his AERD symptoms started. He now has similar rash on his upper chest. He has never seen a side door worker. no improvement with topical steroids/antifungalsHe denies a history of food allergies, urticaria/angioedema, contact dermatitis, latex allergy or stinging insect hypersensitivity.Outside labwork/radiography:04/03/19 - CBC/diff showed DVO=262, total UmB=[id number] 02/01/19 - no active cardiopulmonary diseaseSHx: Lives in [place] with and daughter. House built in 1890s, renting for 9 years. 3 cats. Window A/C, gas heat. No carpet in [place]. Partially finished basement, damp but no visible mold. Smokes - 1 ppd x 40 years. Occasional EtOH. 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 Functional Status Date Functional Assessmen t No Information Instructions Date Instruction Additional Infor mation No Information Assessments Type Assessment Date No Information Patient Care Teams Name Effective Dates (start - stop) Status Members No Information
--- OUTSIDE RECORDS SUMMARY | 2024-05-24 18:11 | XMS_ITS | Encounter Summary ---
Author Organization [facility] Address [address] [place] [address] Phone Care Team Providers Care Bowl Turner Name Role Phone John Stout MD Primary Care Provider Encounter Details Date Type Department Care Team (Latest Contact Info) Description 04/03/2023 Orders Only [facility] Scanning, Provider Social History Tobacco Use Types Packs/Day Years Used Date Smoking Tobacco: Every Day Cigarettes Smokeless Tobacco: Never Alcohol Use Standard Drinks/Week Comments Not Currently [...] on file Legal Sex Male 9:50 AM NURSE PRN Gender Identity Not on file Sexual Orientation Not on file documented as of this encounter Plan of Treatment Not on file documented as of this encounter Procedures Procedure Name Priority Date/Time Associated Diagnosis Comments PULMONARY - RESULT SCAN 04/24/2023 SCAN - RADIOLOGY/IMAGING 04/03/2023 documented in this encounter Results * PULMONARY - RESULT SCAN (04/24/2023) Anatomical Region Laterality Modality Other us Provider Scanning Final Result * SCAN - RADIOLOGY/IMAGING (04/03/2023) Anatomical Region Laterality Modality Other us Provider Scanning Final Result documented in this encounter Visit Diagnoses Not on filedocumented in this encounter Care Teams Bowl Turner Relationship Specialty [place] [address] [place] [address] PCP - General Internal Medicine 12/15/21 documented as of this encounter
--- OUTSIDE RECORDS SUMMARY | 2024-05-24 18:11 | XMS_ITS | Referral Summary ---
Author Organization [facility] Address [address] [place] [address] Care Team Providers Care Fixed Income Trading Vice President Name Role Phone John Stout MD Primary Care Provider + Source Comments [facility],non-owned Affiliates and Associated Physician Practices is amultiple site organization consisting of ambulatory clinics and hospital sitesin [place], [place], [place] and [place]. This disclosure is being madepursuant to the Care Everywhere program and may not contain all information available regarding this patient. Last updated 17.[facility] Allergies Active Allergy Reactions Criticality Noted Date [...] mg by mouth DAILY. 01/08/2017 Active Oxygen [place] 3 L/min into the nose as needed [...] Comments Blood Pressure 128/73 05/07/2018 10:44 AM [facility] Pulse 93 05/07/2018 10:44 AM [facility] Temperature 36.6 C (97.8 F) 11/08/2017 10:12 AM CDT Respiratory Rate 16 11/08/2017 11:44 AM CDT Oxygen Saturation 100% 11/08/2017 11:44 AM CDT Inhaled Oxygen Concentration - - Weight 105 kg (231 lb 8 oz) 05/07/2018 10:44 AM [facility] Height 175.3 cm (5' 9 ) 05/07/2018 10:44 AM [facility] Body Mass Index 34.19 05/07/2018 10:44 AM [facility] Plan of Treatment Not on file Procedures Procedure Name Priority Date/Time Associated Diagnosis Comments COMPREHENSIVE METABOLIC PANEL STAT 11/08/2017 10:41 AM CDT Urticaria from Last 3 Months or Most Recently Relevant to Health Maintenance Results * (ABNORMAL) COMPREHENSIVE METABOLIC PANEL (11/08/2017 10:41 AM CDT) BUN 10 7 - 26 mg/dL 11/08/2017 11:02 AM [facility] Creatinine 1.0 0.6 - 1.2 mg/dL 11/08/2017 11:02 AM [facility] Sodium 140 136 - 145 mmol/L 11/08/2017 11:02 AM [facility] Potassium 3.7 3.5 - 4.5 mmol/L 11/08/2017 11:02 AM [facility] Chloride 101 98 - 107 mmol/L 11/08/2017 11:02 AM [facility] CO2 30(H) 22 - 29 mmol/L 11/08/2017 11:02 AM [facility] Glucose 94 70 - 115 mg/dL 11/08/2017 11:02 AM [facility] Calcium 9.6 8.4 - 10.2 mg/dL 11/08/2017 11:02 AM [facility] Protein Total 7.1 6.0 - 8.3 g/dL 11/08/2017 11:02 AM [facility] Albumin 3.5 3.4 - 5.0 g/dL 11/08/2017 11:02 AM [facility] Bilirubin Total 0.6 0.2 - 1.2 mg/dL 11/08/2017 11:02 AM [facility] Alkaline Phosphatase 90 40 - 150 Units/L 11/08/2017 11:02 AM [facility] ALT 46 0 - 55 Units/L 11/08/2017 11:02 AM [facility] AST 22 5 - 34 Units/L 11/08/2017 11:02 AM [facility] Anion Gap 13 8 - 18 11/08/2017 11:02 AM [facility] BUN/Creatinine Ratio 10 7 - 23 11/08/2017 11:02 AM [facility] Osmolality Calculated 289 270 - 300 mOsm/kg 11/08/2017 11:02 AM CDT [facility] Albumin/Globulin Ratio 1.0(L) 1.1 - 2.3 11/08/2017 11:02 AM CDT [facility] eGFR >60 >60 mL/min/1.7 3 m2 11/08/2017 11:02 AM CDT [facility] Blood BLOOD SPECIMEN / Unknown Venipuncture / Unknown 11/08/2017 10:41 AM CDT 11/08/2017 10:44 AM CDT Uriel Hooker MD LAB - CHEMISTRY [facility] [address] [phone] from Last 3 Months or Most Recently Relevant to Health Maintenance Care Teams Fixed Income [employer] Vice President Relationship Specialty Start Date End Date John Stout MD PCP - General 03/22/15
--- NOTE | 2024-05-24 18:24 | ECG_ITS ---
Test Date: 2024-05-24 18:28:04 Measurements Intervals [place] Rate: 82 P: 32 LA: 135 QRS: 71 QRSD: 110 T: 53 QT: 343 QTc: 401 Interpretive Statements SINUS RHYTHM WITH OCCASIONAL SUPRAVENTRICULAR PREMATURE COMPLEXES No previous ECG available for comparison Electronically Signed On 05-25-2024 11:22:47 CDT by Jayme Blood M.D.
--- NOTE | 2024-05-24 18:38 | ED_ITS ---
HPI - SOB/Dyspnea General Chief Complaint: Shortness of Breath/Dyspnea <Kd Calero PA-C - Last Filed: 05/24/24 23:23> Stated Complaint: Shortness of breath-cough, COPD/Asthma <Kd Calero PA-C - Last Filed: 05/24/24 23:23> Time Seen by Provider: 05/24/24 18:37 <Kd Calero PA-C - Last Filed: 05/24/24 23:23> Source: patient <Kd Calero PA-C - Last Filed: 05/24/24 23:23> Mode of arrival: ambulatory <Kd Calero PA-C - Last Filed: 05/24/24 23:23> Limitations: no limitations <Kd Calero PA-C - Last Filed: 05/24/24 23:23> History of Present Illness HPI Narrative: This is a 63-year-old male with PMH of [place] triad, COPD who presents to the ED for chief complaint of shortness of breath and cough. Patient states that over the past 3 days he started to feel ill with an increasing cough. States that his family members have been sick at home this week as well. Endorses shortness of breath and having to use oxygen at home. States that he has not had use his oxygen in quite some time. He has been using 3 L at home and is required 4 L nasal cannula on arrival to the ED today. Denies chest pain, abdominal pain, nausea, vomiting. <Kd Calero PA-C - Last Filed: 05/24/24 23:23> Related Data Home Medications: Home Medications ?Medication ?Instructions ?Recorded ?Confirmed ?Last Taken ?Type diphenhydramine HCl 25 mg capsule 25 mg PO TID PRN 03/13/19 04/01/24 Unknown History (Benadryl) budesonide 160 mcg-glycopyr 9 2 inh inhalation QAM AND QPM 11/28/21 04/01/24 Unknown History mcg-formot 4.8 mcg/actuation HFA inhaler (Breztri Aerosphere) fluticasone propionate 93 1 spray intranasal Q12H 11/28/21 04/01/24 Unknown History mcg/actuation breath activated aerosol (Xhance) tezepelumab-ekko 210 mg/1.91 mL 210 mg subcut ONCE 09/11/23 04/01/24 Unknown History (110 mg/mL) subcutaneous syringe (Tezspire) <Kd Calero PA-C - Last Filed: 05/24/24 23:23> Allergies/Adverse Reactions: Allergies Allergy/AdvReac Type Severity Reaction Status Date / Time aspirin Allergy Severe Anaphylactic Verified 05/24/24 18:36 Shock ibuprofen Allergy Severe Anaphylactic Verified 05/24/24 18:36 Shock ketorolac Allergy Severe Anaphylactic Verified 05/24/24 18:36 Shock methylprednisolone Allergy Severe Anaphylactic Verified 05/24/24 18:36 Shock naproxen Allergy Severe Anaphylactic Verified 05/24/24 18:36 Shock NSAIDS (Non-Steroidal Allergy Severe Anaphylactic Verified 05/24/24 18:36 Anti-Inflamma Shock <Kd Calero PA-C - Last Filed: 05/24/24 23:23> Review of Systems 2 Review of Systems: All systems as dictated in HPI <Kd Calero PA-C - Last Filed: 05/24/24 23:23> [facility] Past Medical History Medical History: Medical History Nasal polyposis Eczema Tobacco abuse Acute and chronic respiratory failure with hypoxia History of home oxygen therapy Tries not to use it, but when he does he normally has at 3L COPD (chronic obstructive pulmonary disease) Tobacco abuse Acute and chronic respiratory failure with hypoxia COPD exacerbation <Kd Calero PA-C - Last Filed: 05/24/24 23:23> Surgical History Surgical History: Surgical History History of cholecystectomy <DEEPTI Clemons Last Filed: 05/24/24 23:23> Family History Family History: Family History Father Family history of congestive heart failure <DEEPTI Clemons Last Filed: 05/24/24 23:23> Social History Social History: Social History Smoking packs per day: 1 Smoking cigarettes per day: 20.0 Years smoked: 40 Smoking pack-years: 40.00 Smoking status: Current every day smoker Tobacco type: cigarettes Alcohol intake: current Drinks per week: 8 Substance use: never Substance use type: does not use Living arrangements: with family Occupation/Education: other Additional occupation/education comments: DISABLED Gender identity (if verbalized by the patient): Male Spiritual care concerns: No Agree to blood products: Yes <Kd Calero PA-C - Last Filed: 05/24/24 23:23> Exam 2 Narrative: GENERAL: Well-appearing, well-nourished, and in no acute distress. HEAD: Normocephalic, atraumatic. EYES: PERRLA and EOMI. ENT: Nares clear, no rhinorrhea or epistaxis. Mucous membranes moist. Oropharynx without tonsillar hypertrophy exudate or other lesions. NECK: Supple. No adenopathy or masses. CHEST: Saturating 94% on 4 L nasal cannula. Bilateral wheezes heard in the bases. HEART: Regular rate and rhythm. No murmur heard. Normal peripheral pulses. ABDOMEN: Soft, nontender, nondistended, normal active bowel sounds. MSK: Normal range of motion. No edema. SKIN: Warm, dry, no rash. NEURO: Alert and oriented x4. No focal deficits. PSYCH: Normal mood and affect. <Kd Calero PA-C - Last Filed: 05/24/24 23:23> Course GROUND SCHOOL INSTRUCTOR/PA Physician Supervision I agree with midlevel documentation; I performed the medical decision making component of this evaluation. Patient with signs and symptoms consistent with COPD exacerbation, after treatment still having higher oxygen requirement than baseline, will be admitted for further treatment. <Anna Macdonald MD - Last Filed: 05/24/24 23:32> Vital Signs Vital signs: Vital Signs Temperature 98.2 F 05/24/24 18:13 Pulse Rate 48 L 05/24/24 18:13 Respiratory Rate 20 05/24/24 18:13 Blood Pressure 136/83 05/24/24 18:13 Pulse Oximetry 81 L 05/24/24 18:13 Oxygen Delivery Room Air 05/24/24 18:13 Temperature 98.2 F 05/24/24 18:13 Pulse Rate 88 05/24/24 23:15 Respiratory Rate 18 05/24/24 23:15 Blood Pressure 131/80 05/24/24 21:31 Pulse Oximetry 92 05/24/24 23:15 Oxygen Delivery Nasal Cannula 05/24/24 21:26 Oxygen Flow Rate 4 05/24/24 21:26 <Kd Calero PA-C - Last Filed: 05/24/24 23:23> Vital Signs Temperature 98.2 F 05/24/24 18:13 Pulse Rate 48 L 05/24/24 18:13 Respiratory Rate 20 05/24/24 18:13 Blood Pressure 136/83 05/24/24 18:13 Pulse Oximetry 81 L 05/24/24 18:13 Oxygen Delivery Room Air 05/24/24 18:13 Temperature 98.2 F 05/24/24 18:13 Pulse Rate 88 05/24/24 23:15 Respiratory Rate 18 05/24/24 23:15 Blood Pressure 131/80 05/24/24 21:31 Pulse Oximetry 92 05/24/24 23:15 Oxygen Delivery Nasal Cannula 05/24/24 21:26 Oxygen Flow Rate 4 05/24/24 21:26 <Anna Macdonald MD - Last Filed: 05/24/24 23:32> MDM - SOB/Dyspnea MDM Narrative Medical decision making narrative: This is a 63-year-old male who presents to the ED for chief complaint of shortness of breath and cough in the setting of likely COPD exacerbation. Vitals on arrival show he is hypoxic on room air. He was placed on 4 L nasal cannula for supplemental O2. He has not required BiPAP. EKG shows sinus rhythm with occasional PVCs. No STEMI. Lab work remarkable for positive influenza a on the viral swabs. Blood work unremarkable. Chest x-ray shows no acute findings. Presentation consistent with COPD exacerbation. He was given Solu-Medrol, magnesium, breathing treatment here with mild relief of symptoms. He was also given dose of Levaquin for COPD exacerbation, although does not appear to have acute pneumonia. Due to his history and requiring anywhere from 4-5 L oxygen today feel that he would best benefit from observation. Discussed the case with ZULLY Galvin (hospitalist) who will admit the patient to [facility]. <DEEPTI Clemons Last Filed: 05/24/24 23:23> Lab Data Result diagrams: 05/24/24 18:37 05/24/24 18:37 <Kd Calero PA-C - Last Filed: 05/24/24 23:23> Labs: Lab Results 05/24/24 05/24/24 Range/Units 18:37 18:39 WBC 7.8 (4.5-10.0) K/mm3 RBC 5.57 (4.6-6.20) M/mm3 Hgb 15.8 (14.0-18.0) g/dL Hct 49.0 (42.0-52.0) % MCV 88.0 (80-100) fl MCH 28.4 (26-34) pg MCHC 32.2 (32-36) g/dl RDW 14.2 (11.5-14.5) % Plt Count 240 (150-375) k/mm3 MPV 9.1 (7.4-10.4) fl Immature Gran % (Auto) 0.3 (0-0.5) % Neut % (Auto) 74.7 H (45.5-73.1) % Lymph % (Auto) 15.3 L (18.3-44.2) % Hawkins % (Auto) 9.0 H (2.6-8.5) % Eos % (Auto) 0.6 (0-4.4) % Baso % (Auto) 0.1 L (0.2-1.2) % Lymph # (Auto) 1.19 (0.9-3.2) K/mm3 Hawkins # (Auto) 0.7 H (0.1-0.6) K/mm3 Eos # (Auto) 0.1 (0-0.3) K/mm3 Baso # (Auto) 0.0 (0.0-0.1) K/mm3 Abs Immat Gran (auto) 0.02 (0.00-0.031) K/mm3 Absolute Neuts (auto) 5.8 (1.3-6.7) K/mm3 Absolute Nucleated RBC 0.000 (0.0-0.012) K/mm3 Nucleated RBC % 0.0 (0.0-0.2) % Sodium 139 (137-145) mmol/L Potassium 4.0 (3.4-5.0) mmol/L Chloride 103 (98-107) mmol/L Carbon Dioxide 30 (22-30) mmol/L Anion Gap 6 (4-12) mmol/L BUN 13 D (9-20) mg/dL Creatinine 0.94 (0.7-1.3) mg/dL Estim Creat Clear Calc 79 ml/min Estimated GFR > 60 (59 - ) Glucose 110 (65-110) mg/dL Calcium 8.8 (8.4-10.2) mg/dL Magnesium 2.1 (1.6-2.3) mg/dL Total Bilirubin 0.6 (0.2-1.3) mg/dL AST 32 (17-59) U/L ALT 48 (6-50) U/L Alkaline Phosphatase 73 (38-126) U/L Total Protein 7.0 (6.3-8.2) g/dL Albumin 4.0 (3.5-5.1) g/dL Influenza A (RT-PCR) Positive A (Negative) Influenza B (RT-PCR) Negative (Negative) RSV (RT-PCR) Negative (Negative) SARS-CoV-2 RNA (RT-PCR) Negative (Negative) <Kd Calero PA-C - Last Filed: 05/24/24 23:23> Lab Results 05/24/24 05/24/24 Range/Units 18:37 18:39 WBC 7.8 (4.5-10.0) K/mm3 RBC 5.57 (4.6-6.20) M/mm3 Hgb 15.8 (14.0-18.0) g/dL Hct 49.0 (42.0-52.0) % MCV 88.0 (80-100) fl MCH 28.4 (26-34) pg MCHC 32.2 (32-36) g/dl RDW 14.2 (11.5-14.5) % Plt Count 240 (150-375) k/mm3 MPV 9.1 (7.4-10.4) fl Immature Gran % (Auto) 0.3 (0-0.5) % Neut % (Auto) 74.7 H (45.5-73.1) % Lymph % (Auto) 15.3 L (18.3-44.2) % Hawkins % (Auto) 9.0 H (2.6-8.5) % Eos % (Auto) 0.6 (0-4.4) % Baso % (Auto) 0.1 L (0.2-1.2) % Lymph # (Auto) 1.19 (0.9-3.2) K/mm3 Hawkins # (Auto) 0.7 H (0.1-0.6) K/mm3 Eos # (Auto) 0.1 (0-0.3) K/mm3 Baso # (Auto) 0.0 (0.0-0.1) K/mm3 Abs Immat Gran (auto) 0.02 (0.00-0.031) K/mm3 Absolute Neuts (auto) 5.8 (1.3-6.7) K/mm3 Absolute Nucleated RBC 0.000 (0.0-0.012) K/mm3 Nucleated RBC % 0.0 (0.0-0.2) % Sodium 139 (137-145) mmol/L Potassium 4.0 (3.4-5.0) mmol/L Chloride 103 (98-107) mmol/L Carbon Dioxide 30 (22-30) mmol/L Anion Gap 6 (4-12) mmol/L BUN 13 D (9-20) mg/dL Creatinine 0.94 (0.7-1.3) mg/dL Estim Creat Clear Calc 79 ml/min Estimated GFR > 60 (59 - ) Glucose 110 (65-110) mg/dL Calcium 8.8 (8.4-10.2) mg/dL Magnesium 2.1 (1.6-2.3) mg/dL Total Bilirubin 0.6 (0.2-1.3) mg/dL AST 32 (17-59) U/L ALT 48 (6-50) U/L Alkaline Phosphatase 73 (38-126) U/L Total Protein 7.0 (6.3-8.2) g/dL Albumin 4.0 (3.5-5.1) g/dL Influenza A (RT-PCR) Positive A (Negative) Influenza B (RT-PCR) Negative (Negative) RSV (RT-PCR) Negative (Negative) SARS-CoV-2 RNA (RT-PCR) Negative (Negative) <Anna Macdonald MD - Last Filed: 05/24/24 23:32> Discharge Plan Discharge Clinical Impression: Acute exacerbation of chronic obstructive airways disease <Kd Calero PA-C - Last Filed: 05/24/24 23:23> Patient Disposition: Still a Patient <Kd Calero PA-C - Last Filed: 05/24/24 23:23> Condition: Serious <DEEPTI Clemons Last Filed: 05/24/24 23:23>
[2024-05-24 18:46] LABS: Basophils Percent Auto 0.1 % (0.2-1.2); Eosinophils Absolute Auto 0.1 K/mm3 (0-0.3); Eosinophils Percent Auto 0.6 % (0-4.4); Hemoglobin 15.8 g/dL (14.0-18.0); Immature Granulocyte Absolute 0.02 K/mm3 (0.00-0.031); Immature Granulocyte Percent A 0.3 % (0-0.5); Lymphocytes Absolute Auto 1.19 K/mm3 (0.9-3.2); Lymphocytes Percent Auto 15.3 % (18.3-44.2); Mean Corpuscular HGB Conc 32.2 g/dl (32-36); Mean Corpuscular Hemoglobin 28.4 pg (26-34); Mean Platelet Volume 9.1 fl (7.4-10.4); Monocytes Absolute Auto 0.7 K/mm3 (0.1-0.6); Neutrophils Absolute Auto 5.8 K/mm3 (1.3-6.7); Neutrophils Percent Auto 74.7 % (45.5-73.1); Platelet Count Result 240 k/mm3 (150-375); Red Blood Count 5.57 M/mm3 (4.6-6.20); Red Cell Distribution Width 14.2 % (11.5-14.5); White Blood Count 7.8 K/mm3 (4.5-10.0)
[2024-05-24 18:56] LABS: Alanine Aminotransferase 48 U/L (6-50); Alkaline Phosphatase 73 U/L (38-126); Anion Gap 6 mmol/L (4-12); Aspartate Amino Transferase 32 U/L (17-59); Bilirubin,Total 0.6 mg/dL (0.2-1.3); Blood Urea Nitrogen 13 mg/dL (9-20); Calcium 8.8 mg/dL (8.4-10.2); Carbon Dioxide 30 mmol/L (22-30); Chloride 103 mmol/L (98-107); Estimated CRCL calculation 79 ml/min; Estimated Glomerular Filt Rate > 60; Glucose 110 mg/dL (65-110); Sodium 139 mmol/L (137-145)
--- OUTSIDE RECORDS SUMMARY | 2024-05-24 18:57 | XMS_ITS | Encounter Summary ---
Author Organization [facility] Address [facility] [place] [address] Care Team Providers Care Sql Database Programmer Name Role Phone John Stout MD Primary Care Provider U John An MD Primary Care Provider U Ken Bae MD Primary Care Provider [phone] Encounter Details Date Type Department Care Team (Late st Contact Info) Description 09/13/2018 Hospital Follow-up Call [facility] Med/Surg [address] [place] [address] Jacklyn Morales, YOLY Social History Tobacco Use [...] Rule Out 03/13/2023 03/13/2023 03/13/2023 2:57 PM RECYCLER FORKLIFT DRIVER TRUCK DRIVER Influenza - Seasonal 03/13/2023 03/13/2023 024 12:33 AM RECYCLER FORKLIFT DRIVER TRUCK DRIVER COVID-19 Rule Out 02/06/2024 02/06/2024 02/06/2024 1:48 PM RECYCLER FORKLIFT DRIVER TRUCK DRIVER Influenza - Seasonal 02/06/2024 02/06/2024 024 12:33 AM RECYCLER FORKLIFT DRIVER TRUCK DRIVER documented as of this encounter Care Teams Sql Database Programmer Relationship Specialty Start Date End Date John Stout MD PCP - General INTERNAL MEDICINE 02/19/18 06/04/21 John Stout MD PCP - General INTERNAL MEDICINE 06/19/21 04/26/22 [place] [address] [place] [address] PCP - General FAMILY PRACTICE 04/27/22 documented as of this encounter
--- OUTSIDE RECORDS SUMMARY | 2024-05-24 18:57 | XMS_ITS | Encounter Summary ---
Author Organization [facility] Address [facility] [place] [address] Care Team Providers Care Access Assoc Name Role Phone John Stout MD Primary Care Provider U John An MD Primary Care Provider U Ken Bae MD Primary Care Provider [phone] Encounter Details Date Type Department Care Team (Late st Contact Info) Description 08/27/2018 Hospital Follow-up Call [facility] Med/Surg [address] [place] [address] Jacklyn Morales, YOLY Social History Tobacco Use [...] Rule Out 03/13/2023 03/13/2023 03/13/2023 2:57 PM CLOSING AGENT Influenza - Seasonal 03/13/2023 03/13/2023 024 12:33 AM CLOSING AGENT COVID-19 Rule Out 02/06/2024 02/06/2024 02/06/2024 1:48 PM CLOSING AGENT Influenza - Seasonal 02/06/2024 02/06/2024 024 12:33 AM CLOSING AGENT documented as of this encounter Care Teams Access Assoc Relationship Specialty Start Date End Date John Stout MD PCP - General INTERNAL MEDICINE 02/19/18 06/04/21 John Stout MD PCP - General INTERNAL MEDICINE 06/19/21 04/26/22 [place] [address] [place] [address] PCP - General FAMILY PRACTICE 04/27/22 documented as of this encounter
--- OUTSIDE RECORDS SUMMARY | 2024-05-24 18:57 | XMS_ITS | Referral Summary ---
Author Organization [facility] Address [address] [place] [address] Care Team Providers Care Director Teen Post Name Role Phone John Stout MD Primary Care Provider Encounters Date Type Department Care Team Description 04/29/2024 Telephone [facility] [address] [facility] [address] [place] [address] Avani Lopes RPh 03/02/2024 Telephone [facility] Allergy and Immunology [address] [place] [phone] Sarah Anderson NP 03/02/2024 1:26 PM CHAR FILTER TANK TENDER HEAD - 03/02/2024 11:59 PM CHAR FILTER TANK TENDER HEAD Hospital Encounter [facility] Radiology at the [address] [address] Severe persistent asthma with acute exacerbation (HCC); Upper respiratory tract infection, unspecified type Discharge Disposition: Discharge to home or self care 03/02/2024 1:00 PM CHAR FILTER TANK TENDER HEAD Office Visit [facility] [address] [place] [phone] Sarah Anderson NP Severe persistent asthma with acute exacerbation (HCC) (Primary Dx); Upper respiratory tract infection, unspecified type 02/28/2024 Telephone [facility] [address] [place] [phone] Rocío Elena from Last 3 Months Allergies [...] on file Legal Sex Male 9:50 AM CHAR FILTER TANK TENDER HEAD Gender Identity Not on file Sexual Orientation Not on file Last Filed Vital Signs Vital Sign Reading Time Taken Comments Blood Pressure 128/81 03/02/2024 12:43 PM CHAR FILTER TANK TENDER HEAD Pulse 74 03/02/2024 12:43 PM CHAR FILTER TANK TENDER HEAD Temperature 36.4 C (97.5 F) 03/02/2024 12:43 PM CHAR FILTER TANK TENDER HEAD Respiratory Rate 18 03/02/2024 12:43 PM CHAR FILTER TANK TENDER HEAD Oxygen Saturation 91% 03/02/2024 12:43 PM CHAR FILTER TANK TENDER HEAD Inhaled Oxygen Concentration - - Weight 95.7 kg (211 lb) 03/02/2024 12:43 PM CHAR FILTER TANK TENDER HEAD Height 175.3 cm (5' 9 ) 03/02/2024 12:43 PM CHAR FILTER TANK TENDER HEAD Body Mass Index 31.16 03/02/2024 12:43 PM CHAR FILTER TANK TENDER HEAD Plan of Treatment Not on file Procedures Procedure Name Priority Date/Time Associated Diagnosis Comments XR CHEST PA LATERAL 2 VIEWS Schedule Routine, Read Routine (OP Routine) 03/02/2024 1:30 PM CHAR FILTER TANK TENDER HEAD Severe persistent asthma with acute exacerbation (HCC) Upper respiratory tract infection, unspecified type CT ABDOMEN PELVIS WO CONTRAST ED 09/01/2020 11:39 PM CDT from Last 3 Months or Most Recently Relevant to Health Maintenance Results * XR Chest PA Lateral 2 Views (03/02/2024 1:30 PM CHAR FILTER TANK TENDER HEAD) Anatomical Region Laterality Modality Body, Chest N/A Computed Radiogr aphy 03/02/2024 1:49 PM CHAR FILTER TANK TENDER HEAD Impressions 03/02/2024 2:02 PM CHAR FILTER TANK TENDER HEAD Comparison made to topogram from chest CT dated 10/30/2013. Lungs are hyperinflated. No pulmonary consolidation, pleural effusion, or pneumothorax. Cardiomediastinal silhouette is normal. Dictated by: Hubert Long MD The radiology attending physician has personally reviewed this study, and had reviewed and/or edited this written report and agrees with it. Electronically signed by: Cam Lisa M.D. Narrative 03/02/2024 2:02 PM CHAR FILTER TANK TENDER HEAD EXAMINATION: 2 view chest radiograph Procedure Note [...] by: Cam Lisa M.D. us Sarah Anderson EDGE SANDER IMG XR PROCEDURES Final Result * CT [...] A AD RADIOLOGIST, ANY QUESTIONS PLEASE CALL [phone] Narrative 09/02/2020 1:05 AM CDT PROCEDURE INFORMATION: [...] BY A [facility] RADIOLOGIST, ANY QUESTIONS PLEASE [phone] Rocío Lindquist MD IMG CT PROCEDURES Final Result from Last 3 Months or Most Recently Relevant to Health Maintenance Insurance [facility] MEDICARE MEDICARE Care Teams Director Teen Post Relationship Specialty [place] [address] [place] [address] PCP - General Internal Medicine 12/15/21
--- OUTSIDE RECORDS SUMMARY | 2024-05-24 18:57 | XMS_ITS | Encounter Summary ---
Author Organization [facility] Address [facility] [place] [address] Care Team Providers Care Salesforce Consultant Name Role Phone John Stout MD Primary Care Provider U John An MD Primary Care Provider U Ken Bae MD Primary Care Provider [phone] Reason for Visit * Reason Onset Date Comments Hospital Follow Up 11/10/2018 Encounter Details Date Type Department Care Team (Late st Contact Info) Description 11/10/2018 Hospital Follow-up Call [facility] Med/Surg [address] [place] [address] Sharifa Santacruz, RN Hospital Follow [...] Rule Out 03/13/2023 03/13/2023 03/13/2023 2:57 PM READING PROFESSOR Influenza - Seasonal 03/13/2023 03/13/2023 024 12:33 AM READING PROFESSOR COVID-19 Rule Out 02/06/2024 02/06/2024 02/06/2024 1:48 PM READING PROFESSOR Influenza - Seasonal 02/06/2024 02/06/2024 024 12:33 AM READING PROFESSOR documented as of this encounter Care Teams Salesforce Consultant Relationship Specialty Start Date End Date John Stout MD PCP - General INTERNAL MEDICINE 02/19/18 06/04/21 John Stout MD PCP - General INTERNAL MEDICINE 06/19/21 04/26/22 [place] [address] [place] [address] PCP - General FAMILY PRACTICE 04/27/22 documented as of this encounter
--- OUTSIDE RECORDS SUMMARY | 2024-05-24 18:57 | XMS_ITS | Continuity of Care Document ---
Author Organization [facility] Address [address] [facility] [address] [place] [address] Phone Care Team Providers Care Franchise Consultant Name Role Phone Jordin Baker MD Unavailable [...] Procedure Date Est (Level 4) OFFICE/OUTPATIENT VISIT Ak Health Risk Assesment Patient Focused Ja Est [...] Encounter [facility], [address] [place] [address], [id number], tel:[phone] [facility] No Information 2 Samuel Cheshil. [address] [place], [address], [place]. tel:[phone] Referring Provider: Deyanira Lance, [address] [place] [address] [address], [place], [facility]. tel:[phone] [facility], [address] [place] [address], [id number], tel:[phone] [address] [place] [address] No Information 2 Samuel Cheshil. [address] [place], [address], [place]. tel:[phone] Referring Provider: Deyanira Lance, [facility] [address], [place], [address]. tel:[phone] Est (Level 4) OFFICE/OUTPA TIENT VISIT [facility], [address] [place] [address], [id number], tel:[phone] [address] [place] [address] COVID vaccine questions (chief complaint) Adverse effect of other NSAIDs, subsequent encounterSevere persistent asthmaChronic sinusitisEncount er for immunization 1 Mike Umana. [address] [facility] , [address], [place], [id number], . tel:[phone] Referring Provider: Deyanira Lance, [address] [place] [address] [address] , [place], [place], [facility]. tel:[phone] Est (Level 5) OFFICE/OUTPA TIENT VISIT [facility], [address] [facility] [place], [place], [id number], tel:[phone] [facility] AERD (chief complaint) Severe persistent asthmaChronic sinusitisPolyp of nasal cavityAllergic rhinitisDermatit is, unspecifiedAdver se effect of other NSAIDs, subsequent encounter 1 Denisha Perez. [address] [facility], [place], [address], [place]. tel:[phone] Referring Provider: Deyanira Lance, [address] [place] [address] [address] , [place], [place], [facility]. tel:[phone] [facility], [address] [place] [address] [place], [place], [id number], [place] tel:[phone] [facility] No Information Feb- 0 Wan Hernandez. [address], [facility] [address], [place], [address], [place]. tel:[phone] Referring Provider: Deyanira Lance, [address] [place] [address] [address] , [place], [place], [facility]. tel:[phone] Est (Level 4) OFFICE/OUTPA TIENT VISIT [facility], [address] [place] [address] [place], [place], [id number], [place] tel:[phone] [facility] AERD (chief complaint) Severe persistent asthmaChronic sinusitisPolyp of nasal cavityAdverse effect of other NSAIDs, subsequent encounterAllergi c rhinitisDermatit is, unspecified Sep-0 0 Wan Hernandez. [address], [place], [address], [place]. tel:[phone] Referring Provider: Deyanira Lance, [address], [place], [address]. tel:[phone] New (Level 4) OFFICE/OUTPA TIENT VISIT [facility], [address] [facility] [address], [place], [place], [id number], [place] tel:[phone] [facility] AERD (chief complaint) Severe persistent asthma with (acute) exacerbationChro nicolas sinusitisPolyp of nasal cavityAdverse effect of other NSAID, initial encounterAllergi c rhinitisDermatit is, unspecified 0 0 [place] Hernandez. [address], [place], [address], [place]. tel:[phone] Referring Provider: Deyanira Lance, [address], [place], [address]. tel:[phone] Family History Family Member Type Diagnosis Age [...] disorder Payers Payer name Insurance type Covered green party ID Authoriza tion(s) No Information Social History [...] 03/31Today's visit is a virtual visit via [employer]. He presents today for questions regarding the [...] 2015- positive to m ultiple tests O miside labwork/radiography:04/03/19 - CBC/diff showed QIU=313, total [id number] 02/01/19 - no active cardiopulmonary disease AERD [...] surgeries, most recently in Spring 2017 at [facility]. He reports improvement in ability to breathe [...] certain inhalants. He underwent allergy testing at [facility] in 2016 and reportedly had multiple positive tests. He takes various OTC antihistamines on a daily basis with incomplete relief. He has 3 cats at home and reportedly had positive skin testing to cat dander. He has never received immunotherapy. He reports that his symptoms resolve when no longer around the inhalants. Rash now resolved.Outside labwork/radiography:04/03/19 - CBC/diff showed USQ=965, total [id number] 02/01/19 - no active cardiopulmonary diseaseHe started Dupixent on 11/17/19 for his chronic sinusitis with nasal polyposis and ahkhlpnud-fv-dhweqjw asthma, and he continues to receive 300mg [...] surgeries, most recently in Spring 2017 at [facility]. He thinks his polyps have recurred again. [...] certain inhalants. He underwent allergy testing at [facility] in 2016 and reportedly had multiple positive [...] initial visit. He has never seen a sewing supervisor. no improvement with topical steroids/antifungalsHe denies a history of food allergies, urticaria/angioedema, contact dermatitis, latex allergy or stinging insect hypersensitivity.Outside labwork/radiography:04/03/19 - CBC/diff showed ICQ=003, total SgL=7510HPC 02/01/19 - no active cardiopulmonary diseaseHe was recently approved by his insurance to start Dupixent for his chronic sinusitis with nasal polyposis and esfnxidqx-ve-yhhhbex asthma, and he will receive his 600mg loading dose in the office today with training. He or his will then be self-administering the injections at home every 2 weeks.SHx: Lives in [place] with and daughter. House built in 1890s, renting for 9 years. 3 cats. Window A/C, gas heat. No carpet in [place]. Partially finished basement, damp but no visible mold. Smokes - 1 ppd x 40 years. Occasional EtOH. 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 AERD I had the pleasu re of [...] 2L with exertion. He already contacted his marketing instructor this morning and antibiotics and oral steroids have already been called in. He takes Symbicort 2 puffs BID and uses DuoNebs and albuterol multiple times per day with incomplete relief. Current ACT score is 1125. He has been hospitalized multiple times in recent years due to asthma/COPD exacerbations.He has undergone 3 nasal polypectomy surgeries, most recently in Spring 2017 at [facility]. He thinks his polyps have recurred again. [...] certain inhalants. He underwent allergy testing at [facility] in 2016 and reportedly had multiple positive [...] upper chest. He has never seen a sewing supervisor. no improvement with topical steroids/antifungalsHe denies a history of food allergies, urticaria/angioedema, contact dermatitis, latex allergy or stinging insect hypersensitivity.Outside labwork/radiography:04/03/19 - CBC/diff showed MOG=917, total [id number]=[id number] 02/01/19 - no active cardiopulmonary diseaseSHx: Lives in [place] with and daughter. House built in 1890s, renting for 9 years. 3 cats. Window A/C, gas heat. No carpet in [place]. Partially finished basement, damp but no visible mold. Smokes - 1 ppd x 40 years. Occasional EtOH. 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 Functional Status Date Functional Assessmen t No Information Instructions Date Instruction Additional Infor mation No Information Assessments Type Assessment Date No Information Patient Care Teams Name Effective Dates (start - stop) Status Members No Information
--- OUTSIDE RECORDS SUMMARY | 2024-05-24 18:57 | XMS_ITS | Clinical Summary ---
Author Organization [facility] Address [address] [place] [address] Care Team Providers Care Zinc Chloride Operator Name Role Phone John Stout MD [...] Department Care Team Description 04/29/2024 Telephone [facility] [address] [facility] [address] [place] [address] Avani Lopes RPh 03/02/2024 1:26 PM EDGE INKER - 03/02/2024 11:59 PM EDGE INKER Hospital Encounter [facility] Radiology at the [address] [address] Severe persistent asthma with acute exacerbation (HCC); Upper respiratory tract infection, unspecified type Discharge Disposition: Discharge to home or self care 03/02/2024 1:00 PM EDGE INKER Office Visit [facility] [address] [place] [address] [place] [phone] Sarah Anderson NP Severe persistent asthma with acute exacerbation (HCC) (Primary Dx); Upper respiratory tract infection, unspecified type 03/02/2024 Telephone [facility] [address] [place] [phone] Sarah Anderson NP 02/28/2024 Telephone [facility] [address] [place] [phone] Rocío Elena from Last 3 Months Surgical [...] on file Legal Sex Male 9:50 AM EDGE INKER Gender Identity Not on file Sexual Orientation Not on file Obstetrics History Last Filed Vital Signs Vital Sign Reading Time Taken Comments Blood Pressure 128/81 03/02/2024 12:43 PM EDGE INKER Pulse 74 03/02/2024 12:43 PM EDGE INKER Temperature 36.4 C (97.5 F) 03/02/2024 12:43 PM EDGE INKER Respiratory Rate 18 03/02/2024 12:43 PM EDGE INKER Oxygen Saturation 91% 03/02/2024 12:43 PM EDGE INKER Inhaled Oxygen Concentration - - Weight 95.7 kg (211 lb) 03/02/2024 12:43 PM EDGE INKER Height 175.3 cm (5' 9 ) 03/02/2024 12:43 PM EDGE INKER Body Mass Index 31.16 03/02/2024 12:43 PM EDGE INKER Plan of Treatment Health Maintenance Due Date [...] Read Routine (OP Routine) 03/02/2024 1:30 PM EDGE INKER Severe persistent asthma with acute exacerbation (HCC) Upper respiratory tract infection, unspecified type CT ABDOMEN PELVIS WO CONTRAST ED 09/01/2020 11:39 PM CDT from Last 3 Months or Most Recently Relevant to Health Maintenance Results * XR Chest PA Lateral 2 Views (03/02/2024 1:30 PM EDGE INKER) Anatomical Region Laterality Modality Body, Chest N/A Computed Radiogr aphy 03/02/2024 1:49 PM EDGE INKER Impressions 03/02/2024 2:02 PM EDGE INKER Comparison made to topogram from chest CT dated 10/30/2013. Lungs are hyperinflated. No pulmonary consolidation, pleural effusion, or pneumothorax. Cardiomediastinal silhouette is normal. Dictated by: Hubert Long MD The radiology attending physician has personally reviewed this study, and had reviewed and/or edited this written report and agrees with it. Electronically signed by: Cam Lisa M.D. Narrative 03/02/2024 2:02 PM EDGE INKER EXAMINATION: 2 view chest radiograph Procedure Note [...] signed by: Cam Lisa M.D. Sarah Saffaf FEDERAL AID COORDINATOR IM XR PROCEDURES Final Result * CT [...] A AD RADIOLOGIST, ANY QUESTIONS PLEASE CALL [phone] Narrative 09/02/2020 1:05 AM CDT PROCEDURE INFORMATION: [...] BY A [facility] RADIOLOGIST, ANY QUESTIONS PLEASE [phone] Rocío Lindquist MD IMG CT PROCEDURES Final Result from Last 3 Months or Most Recently Relevant to Health Maintenance Insurance [facility] MEDICARE MEDICARE Care Teams Zinc Chloride Operator Relationship Specialty [place] [address] [place], [place] [id number] PCP - General Internal Medicine 12/15/21
--- OUTSIDE RECORDS SUMMARY | 2024-05-24 18:57 | XMS_ITS | Encounter Summary ---
Author Organization [facility] Address [facility] [place] [address] Care Team Providers Care Manager Diesel Name Role Phone Ken Link MD Primary Care Provider [phone] Encounter Details Date Type Department Care Team ([facility] st Contact Info) Description 01/07/2023 GOVECS Message [employer] [facility] Family & Internal Medicine [address] [phone] [place], [facility] Provider appointment Social History Tobacco Use [...] Rule Out 03/13/2023 03/13/2023 03/13/2023 2:57 PM FARMWORKER VEGETABLE Influenza - Seasonal 03/13/2023 03/13/2023 024 12:33 AM FARMWORKER VEGETABLE COVID-19 Rule Out 02/06/2024 02/06/2024 02/06/2024 1:48 PM FARMWORKER VEGETABLE Influenza - Seasonal 02/06/2024 02/06/2024 024 12:33 AM FARMWORKER VEGETABLE Assessment Noted Time PHQ-9 Depression Total Score: 0 01/06/20 22 4:13 PM CDT documented as of this encounter Care Teams Manager Diesel Relationship Specialty [place] [id number] [place] [address] PCP - General FAMILY PRACTICE 04/27/22 documented as of this encounter
--- OUTSIDE RECORDS SUMMARY | 2024-05-24 18:57 | XMS_ITS | Patient Health Summary ---
Author Organization [facility] Pty Address [address] [place] [address] Care Team Providers Care Welder Assembler Name Role Phone John Stout MD Primary Care Provider + Note from [facility],non-owned Affiliates and Associated Physician Practices is amultiple site organization consisting of ambulatory clinics and hospital sitesin [place], [place], [place] and [place]. This disclosure is being madepursuant to the Care Everywhere program and may not contain all information available regarding this patient. Last updated 17.[facility] Pty Allergies * Aspirin(Anaphylaxis) -High Criticality * Nsaids(Anaphylaxis) [...] 10 mg by mouth DAILY. * Oxygen [place] 3 L/min into the nose as needed [...] Comments Blood Pressure 128/73 05/07/2018 10:44 AM ICT SECURITY SPECIALIST Pulse 93 05/07/2018 10:44 AM ICT SECURITY SPECIALIST Temperature 36.6 C (97.8 F) 11/08/2017 10:12 AM CDT Respiratory Rate 16 11/08/2017 11:44 AM CDT Oxygen Saturation 100% 11/08/2017 11:44 AM CDT Inhaled Oxygen Concentration - - Weight 105 kg (231 lb 8 oz) 05/07/2018 10:44 AM ICT SECURITY SPECIALIST Height 175.3 cm (5' 9 ) 05/07/2018 10:44 AM ICT SECURITY SPECIALIST Body Mass Index 34.19 05/07/2018 10:44 AM ICT SECURITY SPECIALIST Procedures * [facility] NASAL ENDOSCOPY,DX(Performed 05/07/2018) Performed for Nasal polyp * [place] NASAL ENDOSCOPY,DX(Performed 01/01/2018) Performed for Nasal polyp, [...] COMPLETE PFT W/WO BRONCHODILATOR(Performed 2015) Results * [place] NASAL ENDOSCOPY,DX (05/07/2018 12:52 PM ICT SECURITY SPECIALIST) Narrative Arik Cruz MD - 05/07/2018 12:52 PM ICT SECURITY SPECIALIST Lyndsay Ayala MD 05/07/2018 12:52 PM Procedure: [...] Ayala MD PROCEDURE/MINOR SURG ICAL ORDERABLES * [place] NASAL ENDOSCOPY,DX (01/01/2018 1:38 PM CDT) Narrative [...] Uriel Hooker MD CT ORDERABLES * PT-INR [facility] (11/08/2017 10:41 AM CDT) PT 12.1 12.1 - 14.8 Seconds 11/08/2017 10:55 AM [facility] INR 0.9 See Comment 11/08/2017 10:55 AM [facility] Comment: The suggested therapeutic range for standard coumadin (warfarin) therapy is an INR of 2.0-3.0. For high-risk patients (Mechanical Mitral Valve Prosthesis, etc.), the suggested prophylactic therapeutic range is an INR of 2.5-3.5. Blood BLOOD SPECIMEN / Unknown Venipuncture / Unknown 11/08/2017 10:41 AM CDT 11/08/2017 10:44 AM CDT Uriel Hooker MD LAB - COAGULATION OR DERABLES [facility] [address] [phone] * (ABNORMAL) CBC W AUTO DIFFERENTIAL (11/08/2017 10:41 AM CDT) Only the most recent of4 resultswithin the time period is included. WBC 6.9 3.5 - 10.5 10 3/uL 11/08/2017 10:48 AM [facility] RBC 5.23 4.30 - 5.70 10 6/uL 11/08/2017 10:48 AM [facility] Hemoglobin 15.4 13.5 - 17.5 g/dL 11/08/2017 10:48 AM [facility] Hematocrit 45.3 39.0 - 50.0 % 11/08/2017 10:48 AM [facility] MCV 86.6 81.0 - 97.0 fL 11/08/2017 10:48 AM [facility] MCH 29.4 28.0 - 34.0 pg 11/08/2017 10:48 AM [facility] MCHC 34.0 32.0 - 36.0 g/dL 11/08/2017 10:48 AM [facility] Platelet Count 214 150 - 400 10 3/uL 11/08/2017 10:48 AM [facility] RDW-SD 44.7 36.0 - 50.0 fL 11/08/2017 10:48 AM [facility] RDW-CV 14.2 11.2 - 14.8 % 11/08/2017 10:48 AM [facility] MPV 9.9 9.3 - 12.8 fL 11/08/2017 10:48 AM [facility] Neutrophils % 69.3 35.0 - 70.0 % 11/08/2017 10:48 AM [facility] Lymphocytes % 16.9(L) 19.7 - 55.1 % 11/08/2017 10:48 AM [facility] Monocytes % 8.3 3.0 - 15.0 % 11/08/2017 10:48 AM [facility] Eosinophils % 5.4 0.0 - 6.0 % 11/08/2017 10:48 AM [facility] Basophil % 0.1 0.0 - 1.5 % 11/08/2017 10:48 AM [facility] Neutrophils Absolute 4.7 1.6 - 7.0 10 3/uL 11/08/2017 10:48 AM [facility] Lymphocyte Absolute 1.2 0.8 - 2.9 10 3/uL 11/08/2017 10:48 AM [facility] Monocytes Absolute 0.57 0.14 - 0.66 10 3/uL 11/08/2017 10:48 AM [facility] Eosinophils Absolute 0.37(H) 0.00 - 0.22 10 3/uL 11/08/2017 10:48 AM [facility] Basophils Absolute 0.01 0.00 - 0.06 10 3/uL 11/08/2017 10:48 AM [facility] Immature Granulocytes % 0.9 0.0 - 1.0 % 11/08/2017 10:48 AM [facility] Blood BLOOD SPECIMEN / Unknown Venipuncture / Unknown 11/08/2017 10:41 AM CDT 11/08/2017 10:44 AM CDT Uriel Hooker MD LAB - HEMATOLOGY ORD ERABLES [facility] [address] [phone] * (ABNORMAL) COMPREHENSIVE METABOLIC PANEL (11/08/2017 10:41 AM CDT) BUN 10 7 - 26 mg/dL 11/08/2017 11:02 AM [facility] Creatinine 1.0 0.6 - 1.2 mg/dL 11/08/2017 11:02 AM [facility] Sodium 140 136 - 145 mmol/L 11/08/2017 11:02 AM [facility] Potassium 3.7 3.5 - 4.5 mmol/L 11/08/2017 11:02 AM [facility] Chloride 101 98 - 107 mmol/L 11/08/2017 11:02 AM [facility] CO2 30(H) 22 - 29 mmol/L 11/08/2017 11:02 AM [facility] Glucose 94 70 - 115 mg/dL 11/08/2017 11:02 AM [facility] Calcium 9.6 8.4 - 10.2 mg/dL 11/08/2017 11:02 AM [facility] Protein Total 7.1 6.0 - 8.3 g/dL 11/08/2017 11:02 AM [facility] Albumin 3.5 3.4 - 5.0 g/dL 11/08/2017 11:02 AM [facility] Bilirubin Total 0.6 0.2 - 1.2 mg/dL 11/08/2017 11:02 AM [facility] Alkaline Phosphatase 90 40 - 150 Units/L 11/08/2017 11:02 AM [facility] ALT 46 0 - 55 Units/L 11/08/2017 11:02 AM [facility] AST 22 5 - 34 Units/L 11/08/2017 11:02 AM [facility] Anion Gap 13 8 - 18 11/08/2017 11:02 AM [facility] BUN/Creatinine Ratio 10 7 - 23 11/08/2017 11:02 AM [facility] Osmolality Calculated 289 270 - 300 mOsm/kg 11/08/2017 11:02 AM [facility] Albumin/Globulin Ratio 1.0(L) 1.1 - 2.3 11/08/2017 11:02 AM [facility] eGFR >60 >60 mL/min/1.7 3 m2 11/08/2017 11:02 AM [facility] Blood BLOOD SPECIMEN / Unknown Venipuncture / Unknown 11/08/2017 10:41 AM T 11/08/2017 10:44 AM [facility] Uriel Hooker MD LAB - CHEMISTRY [place] [facility] Organization Address City/State/ZIP Co de Phone Number [facility] [address] [place] [address] * CT CHEST WO CONTRAST (10/23/2017 8:59 [...] as above. Dictated by Ez Martinez MD (resident care assistant). I, Dr. BUCKY RUBY M.D. have personally reviewed and interpreted this examination/study. This report was electronically signed by BUCKY RUBY M.D. on 10/23/2017 11:22 AM . Narrative 10/23/2017 11:22 AM CDT EXAMINATION: Computed tomography (CT) of the chest without contrast HISTORY: Follow-up for reported spiculated nodule in the left lower lobe on outside hospital CT chest dated 07/02/2017 from [facility]. TECHNIQUE: CT of the chest was performed [...] outside hospital CT chest dated 07/02/2017 from [facility]. TECHNIQUE: CT of the chest was performed [...] as above. Dictated by Ez Martinez MD (resident care assistant). I, Dr. BUCKY RUBY M.D. have personally reviewed and interpretedthis examination/study. This report was electronically signed by BUCKY RUBY M.D. on10/23/2017 11:22 AM . Uriel Hooker MD CT ORDERABLES * PATHOLOGY TISSUE (02/18/2017 10:32 AM ICT SECURITY SPECIALIST) Surgical Pathology Tissue ACCESSION No: [id number] CLINICAL HISTORY: Bilateral total ethmoidectomy, maxillary antrostomy, [...] x 4.2 x 1.1 cm, in aggregate. Resident Athletic Trainer sections are submitted in cassettes A1 through A5. EMS/met The performance characteristics of all immunohistochemical and indirect immunofluorescence stains (if any) cited in this report were determined by the Histopathology Laboratory of [facility]. Some of these tests were developed by [...] by Aidan Wheeler DO. Electronically signed 02/20/2017 [facility] ([facility]) Biopsy, Excision (Nasal/Sinus Polyps) 02/18/2017 10:32 AM ICT SECURITY SPECIALIST 02/18/2017 12:02 PM ICT SECURITY SPECIALIST Narrative [facility] ([facility]) - 02/20/2017 3:15 PM ICT SECURITY SPECIALIST Pre-op diagnosis: NASAL POLYPS Arik Cruz MD LAB - PATHOLOGY/CYT OLOGY ORDERABLES Performing Organization Address [facility] Co de Phone Number [facility] ([facility]) [facility] [address] [phone] * TYPE + SCREEN PANEL (02/18/2017 9:00 AM ICT SECURITY SPECIALIST) Typem A NEG [facility] BLOOD [facility]ANK LAB Antibody Screen NEG [facility] Blood specimen (specimen) 02/18/2017 9:00 AM ICT SECURITY SPECIALIST 02/18/2017 9:15 AM ICT SECURITY SPECIALIST Arik Cruz MD LAB - BLOOD BANK OR DERABLES Performing Organization Address [facility] Co de Phone Number [facility] [address] * CT FACIAL BONES WO CONTRAST (01/23/2017 11:42 AM ICT SECURITY SPECIALIST) Anatomical Region Laterality Modality Head Other Impressions 01/23/2017 3:14 PM ICT SECURITY SPECIALIST IMPRESSION: 1. Complete opacification of the frontal, ethmoid, maxillary and sphenoid sinuses as well as the nasal cavities, likely due to polyposis. No complications. This report was electronically signed by DARON STOUT M.D. on 01/23/2017 3:14 PM . Narrative 01/23/2017 3:14 PM ICT SECURITY SPECIALIST EXAMINATION: Computed tomography (CT) of the maxillofacial [...] * LAB HISTORICAL RESULTS-ONBASE (08/10/2015) 08/10/2015 Narrative [facility] - 08/17/2015 12:18 PM CDT Historical Provider LAB - CHEMISTRY O RDERABLES [facility] [address] * COMPLETE PFT W/WO BRONCHODILATOR (2015 2:10 PM CDT) Impressions [facility] RADIOLOGY - 2015 2:10 PM CDT [facility] DEPARTMENT OF PULMONARY, CRITICAL CARE, AND SLEEP [...] of Pulmonary, Critical Care and Sleep Medicine [employer] [facility] [employer] Pager: [phone] ATTENDING PHYSICIAN ATTESTATION/CÉSAR RAMÍREZ M.D.: I have personally reviewed and interpreted the above test and I have made the necessary changes if needed to the above interpretation. Narrative Procedure Note Provider, MD Paul - 08/23/2017 IMPRESSION [facility] DEPARTMENT OF PULMONARY, CRITICAL CARE, AND SLEEP [...] of Pulmonary, Critical Care and Sleep Medicine [facility] Pager: [phone] ATTENDING PHYSICIAN ATTESTATION/CÉSAR RAMÍREZ M.D.: I have personally reviewed and interpreted the above test and I have made the necessary changes if needed to the above interpretation. Aidan Frank MD RESPIRATORY THERAPY ORDERABLES [facility] RADIOLOGY Care Teams Welder Assembler Relationship Specialty Start Date End Date John Stout MD PCP - General 03/22/15
--- OUTSIDE RECORDS SUMMARY | 2024-05-24 18:57 | XMS_ITS | Referral Summary ---
Author Organization [facility] Address [address] [place] [address] Care Team Providers Care Insurance Processing Clerk Name Role Phone John Stout MD Primary Care Provider + Source Comments [facility],non-owned Affiliates and Associated Physician Practices is amultiple site organization consisting of ambulatory clinics and hospital sitesin [place], [place], [place] and [place]. This disclosure is being madepursuant to the Care Everywhere program and may not contain all information available regarding this patient. Last updated 17.[facility] Allergies Active Allergy Reactions Criticality Noted Date [...] mg by mouth DAILY. 01/08/2017 Active Oxygen [place] 3 L/min into the nose as needed [...] Comments Blood Pressure 128/73 05/07/2018 10:44 AM SATELLITE DISH TECHNICIAN Pulse 93 05/07/2018 10:44 AM SATELLITE DISH TECHNICIAN Temperature 36.6 C (97.8 F) 11/08/2017 10:12 AM CDT Respiratory Rate 16 11/08/2017 11:44 AM CDT Oxygen Saturation 100% 11/08/2017 11:44 AM CDT Inhaled Oxygen Concentration - - Weight 105 kg (231 lb 8 oz) 05/07/2018 10:44 AM SATELLITE DISH TECHNICIAN Height 175.3 cm (5' 9 ) 05/07/2018 10:44 AM SATELLITE DISH TECHNICIAN Body Mass Index 34.19 05/07/2018 10:44 AM SATELLITE DISH TECHNICIAN Plan of Treatment Not on file Procedures Procedure Name Priority Date/Time Associated Diagnosis Comments COMPREHENSIVE METABOLIC PANEL STAT 11/08/2017 10:41 AM CDT Urticaria from Last 3 Months or Most Recently Relevant to Health Maintenance Results * (ABNORMAL) COMPREHENSIVE METABOLIC PANEL (11/08/2017 10:41 AM CDT) BUN 10 7 - 26 mg/dL 11/08/2017 11:02 AM [facility] Creatinine 1.0 0.6 - 1.2 mg/dL 11/08/2017 11:02 AM [facility] Sodium 140 136 - 145 mmol/L 11/08/2017 11:02 AM [facility] Potassium 3.7 3.5 - 4.5 mmol/L 11/08/2017 11:02 AM [facility] Chloride 101 98 - 107 mmol/L 11/08/2017 11:02 AM [facility] CO2 30(H) 22 - 29 mmol/L 11/08/2017 11:02 AM [facility] Glucose 94 70 - 115 mg/dL 11/08/2017 11:02 AM [facility] Calcium 9.6 8.4 - 10.2 mg/dL 11/08/2017 11:02 AM [facility] Protein Total 7.1 6.0 - 8.3 g/dL 11/08/2017 11:02 AM [facility] Albumin 3.5 3.4 - 5.0 g/dL 11/08/2017 11:02 AM [facility] Bilirubin Total 0.6 0.2 - 1.2 mg/dL 11/08/2017 11:02 AM [facility] Alkaline Phosphatase 90 40 - 150 Units/L 11/08/2017 11:02 AM [facility] ALT 46 0 - 55 Units/L 11/08/2017 11:02 AM [facility] AST 22 5 - 34 Units/L 11/08/2017 11:02 AM [facility] Anion Gap 13 8 - 18 11/08/2017 11:02 AM [facility] BUN/Creatinine Ratio 10 7 - 23 11/08/2017 11:02 AM [facility] Osmolality Calculated 289 270 - 300 mOsm/kg 11/08/2017 11:02 AM CDT [facility] Albumin/Globulin Ratio 1.0(L) 1.1 - 2.3 11/08/2017 11:02 AM CDT [facility] eGFR >60 >60 mL/min/1.7 3 m2 11/08/2017 11:02 AM CDT [facility] Blood BLOOD SPECIMEN / Unknown Venipuncture / Unknown 11/08/2017 10:41 AM CDT 11/08/2017 10:44 AM CDT Uriel Hooker MD LAB - CHEMISTRY [place] [facility] [address] [phone] from Last 3 Months or Most Recently Relevant to Health Maintenance Care Teams Insurance Processing Clerk Relationship Specialty Start Date End Date John Stout MD PCP - General 03/22/15
--- OUTSIDE RECORDS SUMMARY | 2024-05-24 18:57 | XMS_ITS | Clinical Summary ---
Author Organization [facility] Address [address] [place] [address] Care Team Providers Care Wildlife Science Professor Name Role Phone Ken Link MD Primary Care Provider [phone] Allergies Active Allergy Reactions Criticality Noted Date [...] 0.5-2.5 (3) MG/3ML SolutionIndicatio ns:Asthma with COPD ([facility]) Take 3 mLs by nebulization every 6 (six) hours as needed. 1080 mL 2 020 Active EPINEPHrine 0.3 MG/0.3ML injectionIndicati ons:Drug-induced anaphylaxis, subsequent encounter EpiPen 0.3 MG/0.3ML 4Active 1 each 2 022 Active Budeson-Glycopyrr ol-Formoterol (BREZTRI AEROSPHERE) 160-9-4.8 MCG/ACT AerosolIndication s:Asthma with COPD ([facility]) Inhale 2 puffs into the lungs 2 (two) times daily. 10.7 g 2 022 Active XHANCE 93 MCG/ACT Exhaler Suspension Active BANOPHEN 25 MG capsule TAKE 1 CAPSULE BY MOUTH EVERY 8 HOURS NEEDED FOR ALLERGIES 023 Active montelukast (SINGULAIR) 10 MG tabletIndications :Asthma with COPD ([facility]) Take 1 tablet (10 mg total) by [...] (90 Base) MCG/ACT inhalerIndication s:Asthma with COPD ([facility]) INHALE 2 PUFFS BY MOUTH EVERY 6 [...] (90 Base) MCG/ACT inhalerIndication s:Asthma with COPD ([facility]) INHALE 2 PUFFS BY MOUTH EVERY 6 HOURS NEEDED FOR WHEEZING 18 g 2 024 2024 Discontinued Active Problems Problem Noted Date Diagnosed Date Osteoarthrosis 08/04/2022 Overview (09/28/2022): Last Assessment & Plan: Condition: stable Follow up in: six months Screening for malignant neoplasm of colon 2022 Overview (07/27/2022): Added automatically from request for surgery [id number] Insomnia 06/20/2021 Overview (09/28/2022): Last Assessment & Plan: Condition: stable Follow up in: three months BMI 33.0-33.9,adult 11/18/2018 COPD exacerbation ([facility]) 08/22/2018 Chronic pansinusitis 01/01/2018 Overview (09/28/2022): Last Assessment & Plan: Condition: stable Follow up in: three months Elevated IgE level 08/09/2017 Asthma with COPD ([facility]) 08/25/2016 Snoring 08/25/2016 REJI (obstructive sleep apnea) 04/19/2016 Overview (09/28/2022): Last Assessment & Plan: Condition: stable Follow up in: three months Allergy 09/14/2015 Urticaria 07/21/2015 Overview (09/28/2022): Last Assessment & Plan: Condition: stable Follow up in: three months Aspirin sensitivity 05/04/2015 Aspirin-exacerbated respiratory disease (AERD) ( [facility]) 05/04/2015 Overview (09/28/2022): Last Assessment & Plan: [...] Drug-induced anaphylaxis 07/10/2013 Chronic obstructive pulmonary disease ([facility]) 03/16/2013 Chronic obstructive pulmonary disease ([facility]) 03/16/2013 Overview (09/28/2022): Last Assessment & Plan: Condition: stable Reviewed trigger avoidance and reviewed proper use of inhalers and rescue medications. Reviewed concerning signs/symptoms and ER precautions. Follow up in: three months Resolved Problems Problem Noted Date Diagnosed Date Resolved Date Health care maintenance 06/06/2020 03/2 11/2020 Encounters Date Type Department Care Team Description 05/14/2024 12:49 PM GAUGE AND INSTRUMENT INSPECTOR - 05/14/2024 11:59 PM GAUGE AND INSTRUMENT INSPECTOR Hospital Encounter [facility] [address] [place] [address] Ken Link MD Discharge Disposition: Home or Self Care (Routine Discharge) 05/14/2024 11:00 AM GAUGE AND INSTRUMENT INSPECTOR Laboratory Only [facility] [address] [place] [address] eKn Link MD 05/14/2024 10:40 AM GAUGE AND INSTRUMENT INSPECTOR Office Visit [facility] [address] [place] [address] Ken Link MD Follow Up; [...] MCG/ 0.5 ML DOSE 11/22/2020,10/21/2020 MODERNA COVID-19 (COSMETICS COUNTER MANAGER WES VASQUEZ), MRNA, LNP-S, PF, 50 MCG/ [...] Comments Blood Pressure 110/66 05/14/2024 10:39 AM GAUGE AND INSTRUMENT INSPECTOR Pulse 80 05/14/2024 10:39 AM GAUGE AND INSTRUMENT INSPECTOR Temperature 36.8 C (98.2 F) 05/14/2024 10:39 AM GAUGE AND INSTRUMENT INSPECTOR Respiratory Rate 16 05/14/2024 10:39 AM GAUGE AND INSTRUMENT INSPECTOR Oxygen Saturation 91% 05/14/2024 10:39 AM GAUGE AND INSTRUMENT INSPECTOR Inhaled Oxygen Concentration - - Weight 94.3 kg (208 lb) 05/14/2024 10:39 AM GAUGE AND INSTRUMENT INSPECTOR Height 175.3 cm (5' 9 ) 05/14/2024 10:39 AM GAUGE AND INSTRUMENT INSPECTOR Body Mass Index 30.72 05/14/2024 10:39 AM GAUGE AND INSTRUMENT INSPECTOR Plan of Treatment Health Maintenance Due Date Last Done Comments Hepatitis C 1976 DTaP, Tdap and Td Vaccines (1 - Tdap) 1977 Zoster Vaccines (1 of 2) 2008 Colorectal Cancer Screening Colonoscopy (10 Years) 08/21/2022 08/21/2012, 08/21/2012 COVID-19 Vaccine ( season) 2023 05/09/2021, 11/22/2020, 10/21/2020 Influenza Adult (#1) 2023 01/17/2021, 01/07/2020, 01/07/2020, Additional history exists PHQ-2 (Physician [place] [employer]) 03/18/2024 02/10/2024 Pneumococcal Vaccine: 65+ Years (3 [...] VENOUS BLOOD VENIPUNCTURE Routine 05/14/2024 11:04 AM GAUGE AND INSTRUMENT INSPECTOR Healthcare maintenance Screening for prostate cancer LIPID PANEL Routine 05/14/2024 11:03 AM GAUGE AND INSTRUMENT INSPECTOR Healthcare maintenance COMPREHENSIVE METABOLIC PANEL Routine 05/14/2024 11:03 AM GAUGE AND INSTRUMENT INSPECTOR Healthcare maintenance PROSTATE SPECIFIC ANTIGEN,SCREENING Routine 05/14/2024 11:03 AM GAUGE AND INSTRUMENT INSPECTOR Screening for prostate cancer CT GENERIC 04/06/2024 COLONOSCOPY Routine 08/21/2012 12:00 AM CDT from Last 3 Months or Most Recently Relevant to Health Maintenance Results * PROSTATE SPECIFIC ANTIGEN,SCREENING (05/14/2024 11:03 AM GAUGE AND INSTRUMENT INSPECTOR) PSA 2.05 <4.00 NG/ML 05/14/2024 1:30 PM GAUGE AND INSTRUMENT INSPECTOR [facility] Comment: Test was performed using the Siemens method. Results obtained with other assay methods or kits cannot be used interchangeably with results obtained by the Siemens method. 05/14/2024 11:0 3 AM GAUGE AND INSTRUMENT INSPECTOR us Ken Link MD LABORATORY Final Resul t [facility] [address] [place] [address], * (ABNORMAL) COMPREHENSIVE METABOLIC PANEL (05/14/2024 11:03 AM GAUGE AND INSTRUMENT INSPECTOR) [facility] GLUCOSE 74 70 - 99 MG/DL 05/14/2024 1:35 PM [facility] BUN 12 7 - 18 MG/DL 05/14/2024 1:35 PM [facility] CREATININE S/P/B 1.02 0.7 - 1.3 MG/DL 05/14/2024 1:35 PM [facility] SODIUM S/P/B 144 136 - 145 MMOL/L 05/14/2024 1:35 PM [facility] POTASSIUM S/P/B 5.2(H) 3.5 - 5.1 MMOL/L 05/14/2024 1:35 PM [facility] CHLORIDE S/P/B 104 100 - 108 MMOL/L 05/14/2024 1:35 PM [facility] CO2 29.0 21 - 32 MMOL/L 05/14/2024 1:35 PM [facility] CALCIUM S/P/B 9.5 8.5 - 10.1 MG/DL 05/14/2024 1:35 PM [facility] BILIRUBIN TOTAL S/P/B 0.4 0.2 - 1.2 MG/DL 05/14/2024 1:35 PM [facility] TOTAL PROTEIN S/P/B 7.2 6.4 - 8.2 G/DL 05/14/2024 1:35 PM [facility] ALBUMIN S/P/B 4.1 3.4 - 5.0 G/DL 05/14/2024 1:35 PM [facility] AST 16 15 - 37 U/L 05/14/2024 1:35 PM [facility] ALT 43 16 - 60 U/L 05/14/2024 1:35 PM [facility] ALKALINE PHOSPHATASE S/P/B 106 50 - 136 U/L 05/14/2024 1:35 PM [facility] ANION GAP 11.0 5 - 15 MMOL/L 05/14/2024 1:35 PM [facility] BUN CREATININE RATIO 11.8 6 - 26 05/14/2024 1:35 PM [facility] A/G RATIO 1.3 1.0 - 2.0 RATIO 05/14/2024 1:35 PM [facility] GFR ESTIMATE 82(L) >90 ML/MIN/1.7 3 M2 05/14/2024 1:35 PM [facility] Comment: NOTE: eGFR is not calculated for patients <18 years of age. This is an estimated GFR calculation using the new CKD EPI creatinine equation without race and so does not require a correction factor for race. This estimated GFR should not be used for calculating drug doses. 05/14/2024 11:0 3 AM GAUGE AND INSTRUMENT INSPECTOR us Ken Link MD LABORATORY Final Resul t [facility] [address] [place] [address], * (ABNORMAL) LIPID PANEL (05/14/2024 11:03 AM GAUGE AND INSTRUMENT INSPECTOR) CHOLESTEROL 239(H) <200.0 MG/DL 05/14/2024 1:35 PM [facility] TRIGLYCERIDES 223(H) <150 MG/DL 05/14/2024 1:35 PM [facility] HDL 41 >40.0 MG/DL 05/14/2024 1:35 PM [facility] LDL (CALCULATED) 153(H) <100 MG/DL 05/14/2024 1:35 PM [facility] NON HDL CHOLESTEROL 198(H) <130 MG/DL 05/14/2024 1:35 PM [facility] CHOL/HDL RATIO 5.8(H) 0.0 - 4.5 05/14/2024 1:35 PM [facility] VLDL CALCULATION 45 5 - 55 MG/DL 05/14/2024 1:35 PM [facility] LIPID INTERPRETATION 05/14/2024 1:35 PM [facility] Comment: NIH CONCENSUS REPORT RECOMMENDATIONS: ADULT CHILD LOW RISK: CHOLESTEROL <200 <170 TRIGLYCERIDE <150 --- HDL >=60 --- LDL <100 <110 BORDERLINE: CHOLESTEROL 200-239 170-199 TRIGLYCERIDE 150-199 --- HDL 40-59 --- LDL 100-159 110-129 HIGH RISK: CHOLESTEROL >=240 >=200 TRIGLYCERIDE >=200 --- HDL <40 --- LDL >=160 >=130 05/14/2024 11:0 3 AM GAUGE AND INSTRUMENT INSPECTOR Ken Link MD LABORATORY Final Resul t Performing Organization Address City/State/[facility] Co de Phone Number [facility] [address] [place] [address], * CT GENERIC (04/06/2024) Anatomical Region Laterality [...] 7:52 PM 08/25/2018 6:21 PM Care Teams Wildlife Science Professor Relationship Specialty [place] [address] [place] [address] PCP - General FAMILY PRACTICE 04/27/22
--- OUTSIDE RECORDS SUMMARY | 2024-05-24 18:57 | XMS_ITS | Encounter Summary ---
Author Organization [facility] Address [address] [place] 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
--- OUTSIDE RECORDS SUMMARY | 2024-05-24 18:57 | XMS_ITS | Clinical Summary ---
Author Organization [facility] Address [address] [place] [address] Care Team Providers Care Inbound Call Center Agent Name Role Phone John Stout MD Primary Care Provider + Source Comments [facility],non-owned Affiliates and Associated Physician Practices is amultiple site organization consisting of ambulatory clinics and hospital sitesin [place] and [place]. This disclosure is being madepursuant to the Care Everywhere program and may not contain all information available regarding this patient. Last updated 17.[facility] Allergies Active Allergy Reactions Criticality Noted Date [...] mg by mouth DAILY. 01/08/2017 Active Oxygen [place] 3 L/min into the nose as needed [...] Comments Blood Pressure 128/73 05/07/2018 10:44 AM THREAD CUTTER TENDER Pulse 93 05/07/2018 10:44 AM THREAD CUTTER TENDER Temperature 36.6 C (97.8 F) 11/08/2017 10:12 AM CDT Respiratory Rate 16 11/08/2017 11:44 AM CDT Oxygen Saturation 100% 11/08/2017 11:44 AM CDT Inhaled Oxygen Concentration - - Weight 105 kg (231 lb 8 oz) 05/07/2018 10:44 AM THREAD CUTTER TENDER Height 175.3 cm (5' 9 ) 05/07/2018 10:44 AM THREAD CUTTER TENDER Body Mass Index 34.19 05/07/2018 10:44 AM THREAD CUTTER TENDER Plan of Treatment Health Maintenance Due Date [...] 7 - 26 mg/dL 11/08/2017 11:02 AM [facility] Creatinine 1.0 0.6 - 1.2 mg/dL 11/08/2017 11:02 AM [facility] Sodium 140 136 - 145 mmol/L 11/08/2017 11:02 AM [facility] Potassium 3.7 3.5 - 4.5 mmol/L 11/08/2017 11:02 AM [facility] Chloride 101 98 - 107 mmol/L 11/08/2017 11:02 AM [facility] CO2 30(H) 22 - 29 mmol/L 11/08/2017 11:02 AM [facility] Glucose 94 70 - 115 mg/dL 11/08/2017 11:02 AM [facility] Calcium 9.6 8.4 - 10.2 mg/dL 11/08/2017 11:02 AM [facility] Protein Total 7.1 6.0 - 8.3 g/dL 11/08/2017 11:02 AM [facility] Albumin 3.5 3.4 - 5.0 g/dL 11/08/2017 11:02 AM [facility] Bilirubin Total 0.6 0.2 - 1.2 mg/dL 11/08/2017 11:02 AM [facility] Alkaline Phosphatase 90 40 - 150 Units/L 11/08/2017 11:02 AM [facility] ALT 46 0 - 55 Units/L 11/08/2017 11:02 AM [facility] AST 22 5 - 34 Units/L 11/08/2017 11:02 AM [facility] Anion Gap 13 8 - 18 11/08/2017 11:02 AM [facility] BUN/Creatinine Ratio 10 7 - 23 11/08/2017 11:02 AM [facility] Osmolality Calculated 289 270 - 300 mOsm/kg 11/08/2017 11:02 AM [facility] Albumin/Globulin Ratio 1.0(L) 1.1 - 2.3 11/08/2017 11:02 AM [facility] eGFR >60 >60 mL/min/1.7 3 m2 11/08/2017 11:02 AM [facility] Blood BLOOD SPECIMEN / Unknown Venipuncture / Unknown 11/08/2017 10:41 AM CDT 11/08/2017 10:44 AM T Uriel Hooker MD LAB - CHEMISTRY [place] [facility] Organization Address City/State/ZIP Co de Phone Number [facility] [address] [place] [address], [facility] [phone] from Last 3 Months or Most Recently Relevant to Health Maintenance Care Teams Inbound Call Center Agent Relationship Specialty Start Date End Date John Stout MD PCP - General 03/22/15
[2024-05-24 19:21] LABS: Influenza A QL RT-PCR Positive (Negative); Influenza B QL RT-PCR Negative (Negative); RSV RNA, RT-PCR Negative (Negative); SARS-CoV-2 RNA PCR Negative (Negative)
[2024-05-24] MEDS: IPRATROPIUM BR 0.02% INH SOLN 0.5 MG/2.5 ML VIAL 1 MG INHALATION (19:22)
[2024-05-24] MEDS: ALBUTEROL SULFATE NEB 2.5 MG/3 ML INH 10 MG INHALATION (19:23)
[2024-05-24 19:30] LABS: Magnesium 2.1 mg/dL (1.6-2.3)
[2024-05-24] MEDS: MAGNESIUM SULF 1 GM/D5W 100 ML 1 GM/100 ML BAG IVPB (20:06)
[2024-05-24] MEDS: methylPREDNISolone SOD SUCC 125 MG VIAL IV PUSH (20:06)
--- NOTE | 2024-05-24 20:09 | PC.NURSE ---
anette nguyen states to give solu-medrol slow ivpush per patient. patient states he had a reaction one time to what he believes was solu-medrol but is unsure if that is the medication. this rn used closed loop communication to verify administration of medication. anette nguyen verified. pt states he is comfortable at this time getting medication iv push due to receiving the medication since incident.
--- NOTE | 2024-05-24 21:06 | P.HP_ITS ---
H&P: HPI History of Present Illness Date/Time: 05/24/24 21:06 Chief Complaint: Shortness of breath/dyspnea Narrative: This is a 63-year-old male with a significant past medical history of Samter's triad, COPD with home O2 as needed, asthma, emphysema, eczema, tobacco abuse, GERD who presented to the hospital with complaints of shortness of breath/dyspnea. Patient reports the following history of presenting illness. He states that last weekend he was watching his niece and nephew who were sick and then about 4-5 days ago he started to have a cough, congestion, sore throat which progressed into worsening shortness of breath/dyspnea. 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 His symptoms did not improve and he presented here for further evaluation. He did mention that he recently got over Influenza B prior to this onset. He denies any fever, chills, nausea, vomiting, abdominal pain, chest pain. He does report diarrhea since the onset of his symptoms. Workup in the hospital included a chest x-ray which was negative for any acute cardiopulmonary process. Initial labs showed a normal white blood cell count of 7.8 otherwise unremarkable. Respiratory panel was positive for influenza A. EKG showed normal sinus rhythm with supraventricular premature complexes with a rate of 82, QTC 401. Patient was given Duo Nebs, 125 mg IV push Solu-Medrol, 1 g of magnesium, Levaquin, and started on Tamiflu while in the ED. Review of Systems Review of Systems: All systems reviewed & are unremarkable except as noted in HPI and below PMFSH Past Medical History Medical History Samter's triad Nasal polyposis Eczema Tobacco abuse Acute and chronic respiratory failure with hypoxia History of home oxygen therapy Tries not to use it, but when he does he normally has at 3L COPD (chronic obstructive pulmonary disease) Tobacco abuse Acute and chronic respiratory failure with hypoxia COPD exacerbation Surgical History Surgical History History of cholecystectomy Family History Family History Father Family history of congestive heart failure Social History Social History Smoking packs per day: 1 Smoking cigarettes per day: 20.0 Years smoked: 40 Smoking pack-years: 40.00 Smoking status: Current every day smoker Tobacco type: cigarettes Alcohol intake: current Drinks per week: 8 Substance use: never Substance use type: does not use Living arrangements: with family Occupation/Education: other Additional occupation/education comments: DISABLED Gender identity (if verbalized by the patient): Male Spiritual care concerns: No Agree to blood products: Yes Meds Home Medications and Allergies Home Medications ?Medication ?Instructions ?Recorded ?Confirmed ?Type diphenhydramine HCl 25 mg capsule 25 mg PO TID PRN 03/13/19 04/01/24 History (Benadryl) albuterol sulfate 90 mcg/actuation 2 inh inhalation Q4-6H PRN 05/15/21 04/01/24 Rx aerosol inhaler (Ventolin HFA) shortness of breath or wheezing #8.5 grams cetirizine 10 mg capsule (Zyrtec) 10 mg PO DAILY 90 days #90 caps 05/17/21 04/01/24 Rx alprazolam 0.25 mg tablet 0.25 mg PO BID PRN anxiety #60 tabs 05/31/21 04/01/24 Rx budesonide 160 mcg-glycopyr 9 2 inh inhalation QAM AND QPM 11/28/21 04/01/24 History mcg-formot 4.8 mcg/actuation HFA inhaler (Breztri Aerosphere) fluticasone propionate 93 1 spray intranasal Q12H 11/28/21 04/01/24 History mcg/actuation breath activated aerosol (Xhance) tezepelumab-ekko 210 mg/1.91 mL 210 mg subcut ONCE 09/11/23 04/01/24 History (110 mg/mL) subcutaneous syringe (Tezspire) ipratropium 0.5 mg-albuterol 3 mg 3 ml inhalation QID PRN shortness 04/01/24 04/01/24 Rx (2.5 mg base)/3 mL nebulization of breath or wheezing #180 mL soln montelukast 10 mg tablet See Rx Instructions .Route 04/01/24 04/01/24 Rx .COMPLEX #30 tabs amoxicillin 875 mg-potassium 1 tablet PO BID 7 days #14 tabs 05/20/24 Rx clavulanate 125 mg tablet prednisone 10 mg tablet 10 mg PO DIRECTED #30 tabs 05/20/24 Rx Allergies Allergy/AdvReac Type Severity Reaction Status Date / Time aspirin Allergy Severe Anaphylactic Verified 05/24/24 18:36 Shock ibuprofen Allergy Severe Anaphylactic Verified 05/24/24 18:36 Shock ketorolac Allergy Severe Anaphylactic Verified 05/24/24 18:36 Shock methylprednisolone Allergy Severe Anaphylactic Verified 05/24/24 18:36 Shock naproxen Allergy Severe Anaphylactic Verified 05/24/24 18:36 Shock NSAIDS (Non-Steroidal Allergy Severe Anaphylactic Verified 05/24/24 18:36 Anti-Inflamma Shock Vital Signs Vital Signs - 24 hr 05/24/24 18:13 05/24/24 18:32 05/24/24 18:33 Temperature 98.2 F Pulse Rate 48 L Respiratory Rate 20 Blood Pressure 136/83 Pulse Oximetry 81 L 94 95 Oxygen Delivery Room Air Nasal Cannula Nasal Cannula Oxygen Flow Rate 4 4 05/24/24 19:24 05/24/24 19:34 05/24/24 20:00 Temperature Pulse Rate 88 96 90 Respiratory Rate 16 17 13 Blood Pressure Pulse Oximetry 96 98 Oxygen Delivery Oxygen Flow Rate 05/24/24 20:11 05/24/24 20:42 Temperature Pulse Rate 96 Respiratory Rate 13 Blood Pressure 119/62 Pulse Oximetry 95 91 Oxygen Delivery Nasal Cannula Oxygen Flow Rate 5 Exam Narrative: General: In no acute distress, well nourished Head: atraumatic, no encephalopathy Eyes: PERRLA, sclera clear ENT: moist mucous membranes, nasal passages clear, reports sore throat and congestion Neck: supple, no JVD, no adenopathy, trachea midline Cardiac: Normal S1 and S2. RRR, No murmur, gallops or friction rubs, peripheral pulses intact. Respiratory: Bilateral wheezing throughout all lung kramer, no other adventitious lung sounds, currently on 4LNC, no use of accessory muscles or signs of respiratory distress, reports productive cough Gastrointestinal: soft, non-distended, non-tender, normoactive bowel sounds. : voiding without difficulty. Extremities: moves all extremities well, no edema Skin: clean, dry, intact. No wounds or lesions. Neuro: Alert and oriented x4, cranial nerves intact, no neuro deficits. Psych: normal mood, normal affect, interactive H&P: Results Labs Labs: Short CBC 05/24/24 Range/Units 18:37 WBC 7.8 (4.5-10.0) K/mm3 Hgb 15.8 (14.0-18.0) g/dL Hct 49.0 (42.0-52.0) % Plt Count 240 (150-375) k/mm3 BMP 05/24/24 18:37 Sodium 139 Potassium 4.0 Chloride 103 Carbon Dioxide 30 BUN 13 D Creatinine 0.94 Glucose 110 Calcium 8.8 Liver Function 05/24/24 Range/Units 18:37 Total Bilirubin 0.6 (0.2-1.3) mg/dL AST 32 (17-59) U/L ALT 48 (6-50) U/L Alkaline Phosphatase 73 (38-126) U/L Albumin 4.0 (3.5-5.1) g/dL Imaging Chest x-ray: Radiologist's impression: EXAMINATION: XR chest 2V Exam Date/Time: 05/24/2024 18:35 CDT HISTORY: SOB Comparison: 02/01/2019. RESULT: Lines, tubes, and devices: None. Lungs and pleura: Clear. Cardiomediastinal silhouette: Stable. Other: No acute osseous or upper abdominal finding. 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 IMPRESSION: No acute cardiopulmonary process. Reviewed, dictated and finalized at location K. Assessment and Plan Assessment and plan (1) Acute respiratory failure with hypoxia: Code(s): J96.01 - Acute respiratory failure with hypoxia Status: Acute Assessment and Plan: * Chest x-ray was negative for any acute cardiopulmonary process * Respiratory panel positive for influenza A onset 5 days ago * Patient was started on Augmentin and Prednisone by Dr. Craven's office on Saturday with no improvement in his symptoms. Recently recovered from Influenza B * Levaquin given in ED and we will continue Levaquin x5 days considering his respiratory history. * Patient was given 125 mg IV push Solu-Medrol and 1 g of magnesium while in the ED * Continue Solu-Medrol 60 mg q.6 hour--wean when appropriate * Continue DuoNebs * Pep therapy and incentive spirometry ordered * Continue to wean O2 for sat greater than 92%, currently on 5 L nasal cannula * Patient refused ABG testing * Continuous cardiac monitoring * Started on Tamiflu however his symptoms started 5 days ago. Considering his pulmonary history, we will still treat. * Will start Mucinex * Continue Singulair, Flonase, Claritin * Will need home O2 evaluation prior to discharging * Consider pulmonology consult if no improvement. 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 (4) Tobacco abuse: Code(s): Z72.0 - Tobacco use Status: Acute Assessment and Plan: * Current every day smoker 1 ppd x40 years * Discussed tobacco cessation * Refused Nicotine patch or gum (5) Influenza A: Code(s): J10.1 - Influenza due to other identified influenza virus with other respiratory manifestations Status: Acute Assessment and Plan: * Respiratory panel positive for influenza A * Continue Tamiflu * See above plan of care (6) Anxiety: Code(s): F41.9 - Anxiety disorder, unspecified Status: Acute Assessment and Plan: * Continue alprazolam (7) Hyperlipidemia: Code(s): E78.5 - Hyperlipidemia, unspecified Status: Acute Assessment and Plan: Recently diagnosed * Unsure what medication used, awaiting nursing to address medication reconciliation. Will restart when known. Quality VTE Prophylaxis VTE prophylaxis: pharmacologic ordered Hospitalist [facility] Advance Care Plan I have confirmed that the patient's Advanced Care Plan is present, code status is documented, or surrogate decision maker is listed in patient medical record.: Yes Medication Reconciliation I have utilized all available resources to obtain, update and review the patients current medications (includes all prescriptions, OTC, herbals, cannabis, and nutritional supplements).: Yes
[2024-05-24] MEDS: OSELTAMIVIR PHOSPHATE 75 MG CAPSULE PO (21:28)
--- NOTE | 2024-05-24 21:37 | PC.NURSE ---
per anette nguyen patient to only be tittrated on oxygen when oxygen saturation falls below 88%. this rn used closed loop communication to confirm oxygen titration orders.
--- NOTE | 2024-05-24 21:43 | PCRCNOTE ---
Pt refuses Arterial Blood Gas, states he's had many, and they all show the same thing and he knows his disease
[2024-05-24] MEDS: levoFLOXacin 750 MG/D5W 150 ML 750 MG/150 ML BAG 100 MG IVPB (21:44)
[2024-05-25] VITALS (22 sets, daily range): BP systolic 96–134; BP diastolic 54–82; PULSE 71–88; RESP 16–21; TEMP 36.2–36.6; O2SAT 91–96; BMI 31.6
[2024-05-25] MEDS: methylPREDNISolone SOD SUCC 125 MG VIAL 60 MG IV PUSH ×4 (00:43→17:10)
[2024-05-25] MEDS: IPRATROPIUM 0.5 MG/ALBUTEROL SULFATE 2.5 MG AMPUL.NEB 3 ML INHALATION ×3 (01:55→20:04)
--- NOTE | 2024-05-25 03:33 | PC.NURSE ---
Patient home medication list update while patient was toileting after resting.
[2024-05-25] MEDS: MONTELUKAST SODIUM 10 MG TABLET PO ×2 (03:56→20:21)
[2024-05-25 06:58] LABS: Basophils Percent Auto 0.2 % (0.2-1.2); Hematocrit 49.5 % (42.0-52.0); Immature Granulocyte Absolute 0.02 K/mm3 (0.00-0.031); Immature Granulocyte Percent A 0.4 % (0-0.5); Lymphocytes Percent Auto 10.6 % (18.3-44.2); Mean Corpuscular HGB Conc 32.3 g/dl (32-36); Mean Corpuscular Hemoglobin 28.6 pg (26-34); Mean Corpuscular Volume 88.6 fl (80-100); Mean Platelet Volume 9.1 fl (7.4-10.4); Monocytes Percent Auto 0.8 % (2.6-8.5); Neutrophils Absolute Auto 4.2 K/mm3 (1.3-6.7); Platelet Count Result 225 k/mm3 (150-375); Red Blood Count 5.59 M/mm3 (4.6-6.20); Red Cell Distribution Width 14.1 % (11.5-14.5); White Blood Count 4.7 K/mm3 (4.5-10.0)
[2024-05-25 07:18] LABS: Alanine Aminotransferase 50 U/L (6-50); Albumin Level 4.1 g/dL (3.5-5.1); Alkaline Phosphatase 75 U/L (38-126); Anion Gap 7 mmol/L (4-12); Aspartate Amino Transferase 28 U/L (17-59); Bilirubin,Total 0.5 mg/dL (0.2-1.3); Blood Urea Nitrogen 13 mg/dL (9-20); Calcium 8.9 mg/dL (8.4-10.2); Carbon Dioxide 30 mmol/L (22-30); Chloride 100 mmol/L (98-107); Estimated CRCL calculation 93 ml/min; Estimated Glomerular Filt Rate > 60; Glucose 148 mg/dL (65-110); Magnesium 2.3 mg/dL (1.6-2.3); Potassium 4.8 mmol/L (3.4-5.0); Sodium 137 mmol/L (137-145)
[2024-05-25] MEDS: guaiFENesin 12 HR 600 MG TABCR 1200 MG PO ×2 (08:23→20:22)
[2024-05-25] MEDS: LORATADINE 10 MG TABLET PO (08:23)
[2024-05-25] MEDS: OSELTAMIVIR PHOSPHATE 75 MG CAPSULE PO ×2 (08:23→20:22)
--- NOTE | 2024-05-25 08:44 | PC.NURSE ---
Pt refused Lovenox injection, RN educated pt on reason why pt should receive the med. Pt states I know all about that medicine, I don't want it
--- NOTE | 2024-05-25 09:55 | PC.NURSE ---
Pharmacy called for Vannesa spoke with Cecil
[2024-05-25] MEDS: FLUTICASONE PROPIONATE 0.05% NA SPR 16 GM BTL (*BKC) 2 SPRAY NASAL (10:32)
--- NOTE | 2024-05-25 11:32 | P.PNIM_ITS ---
Progress Note: A&P Assessment and Plan (1) Acute respiratory failure with hypoxia: Code(s): J96.01 - Acute respiratory failure with hypoxia Status: Acute Assessment and Plan: * Chest x-ray was negative for any acute cardiopulmonary process * Respiratory panel positive for influenza A onset 5 days ago * Patient was started on Augmentin and Prednisone by Dr. Craven's office on Saturday with no improvement in his symptoms. Recently recovered from Influenza B * Levaquin given in ED and we will continue Levaquin x5 days considering his respiratory history. * Patient was given 125 mg IV push Solu-Medrol and 1 g of magnesium while in the ED * Continue Solu-Medrol 60 mg q.6 hour--wean when appropriate * Continue DuoNebs * Pep therapy and incentive spirometry ordered * Continue to wean O2 for sat greater than 92%, currently on 5 L nasal cannula * Patient refused ABG testing * Continuous cardiac monitoring * Started on Tamiflu however his symptoms started 5 days ago. Considering his pulmonary history, we will still treat. 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 (4) Tobacco abuse: Code(s): Z72.0 - Tobacco use Status: Acute Assessment and Plan: * Current every day smoker 1 ppd x40 years * Discussed tobacco cessation * Refused Nicotine patch or gum (5) Influenza A: Code(s): J10.1 - Influenza due to other identified influenza virus with other respiratory manifestations Status: Acute Assessment and Plan: * Respiratory panel positive for influenza A * Continue Tamiflu * See above plan of care (6) Anxiety: Code(s): F41.9 - Anxiety disorder, unspecified Status: Acute Assessment and Plan: * Continue alprazolam (7) Hyperlipidemia: Code(s): E78.5 - Hyperlipidemia, unspecified Status: Acute Assessment and Plan: Recently diagnosed * Unsure what medication used, awaiting nursing to address medication reconciliation. Will restart when known. Time Spent With Patient Time with patient: 25 - 35 minutes Subjective Date/time seen: 05/25/24 11:32 Interval history: 63-year-old male with PMH/of Samter's triad, COPD with home O2 as needed, asthma, emphysema, eczema, tobacco abuse, GERD who presented to the hospital with complaints of shortness of breath/dyspnea. Patient reports the following history of presenting illness. He states that last weekend he was watching his niece and nephew who were sick and then about 4-5 days ago he started to have a cough, congestion, sore throat which progressed into worsening shortness of breath/dyspnea. 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 His symptoms did not improve and he presented here for further evaluation. He did mention that he recently got over Influenza B prior to this onset. He denies any fever, chills, nausea, vomiting, abdominal pain, chest pain. He does report diarrhea since the onset of his symptoms. Workup in the hospital included a chest x-ray which was negative for any acute cardiopulmonary process. Initial labs showed a normal white blood cell count of 7.8 otherwise unremarkable. Respiratory panel was positive for influenza A. EKG showed normal sinus rhythm with supraventricular premature complexes with a rate of 82, QTC 401. Patient was given Duo Nebs, 125 mg IV push Solu-Medrol, 1 g of magnesium, Levaquin, and started on Tamiflu while in the ED. pt is seen and examined. currently on 5l per [facility] 90-92% Review of Systems Review of Systems: All systems reviewed & are unremarkable except as noted in HPI and below Exam Narrative: General: In no acute distress, well nourished Head: atraumatic, no encephalopathy Eyes: PERRLA, sclera clear ENT: moist mucous membranes, nasal passages clear, reports sore throat and congestion Neck: supple, no JVD, no adenopathy, trachea midline Cardiac: Normal S1 and S2. RRR, No murmur, gallops or friction rubs, peripheral pulses intact. Respiratory: Bilateral wheezing throughout all lung kramer, no other adventitious lung sounds, currently on 4LNC, no use of accessory muscles or signs of respiratory distress, reports productive cough Gastrointestinal: soft, non-distended, non-tender, normoactive bowel sounds. : voiding without difficulty. Extremities: moves all extremities well, no edema Skin: clean, dry, intact. No wounds or lesions. Neuro: Alert and oriented x4, cranial nerves intact, no neuro deficits. Psych: normal mood, normal affect, interactive Objective Data Vital Signs Vital Signs: Vital Signs - 24 hr 05/24/24 18:13 05/24/24 18:32 05/24/24 18:33 Temperature 98.2 F Pulse Rate 48 L Respiratory Rate 20 Blood Pressure 136/83 Pulse Oximetry 81 L 94 95 Oxygen Delivery Room Air Nasal Cannula Nasal Cannula Oxygen Flow Rate 4 4 05/24/24 19:24 05/24/24 19:34 05/24/24 20:00 Temperature Pulse Rate 88 96 90 Respiratory Rate 16 17 13 Blood Pressure Pulse Oximetry 96 98 Oxygen Delivery Oxygen Flow Rate 05/24/24 20:10 05/24/24 20:11 05/24/24 20:16 Temperature Pulse Rate 89 96 91 Respiratory Rate 15 13 17 Blood Pressure 119/62 119/62 121/94 H Pulse Oximetry 95 95 95 Oxygen Delivery Oxygen Flow Rate 05/24/24 20:31 05/24/24 20:42 05/24/24 20:46 Temperature Pulse Rate 108 H 99 Respiratory Rate 17 27 H Blood Pressure 106/89 116/63 Pulse Oximetry 85 L 91 91 Oxygen Delivery Nasal Cannula Oxygen Flow Rate 5 05/24/24 21:01 05/24/24 21:26 05/24/24 21:27 Temperature Pulse Rate 106 H 99 Respiratory Rate 28 H 19 Blood Pressure 135/75 133/77 Pulse Oximetry 91 91 91 Oxygen Delivery Nasal Cannula Oxygen Flow Rate 4 05/24/24 21:31 05/24/24 22:30 05/24/24 23:15 Temperature Pulse Rate 107 H 95 88 Respiratory Rate 18 18 18 Blood Pressure 131/80 Pulse Oximetry 89 L 91 92 Oxygen Delivery Oxygen Flow Rate 05/24/24 23:50 05/25/24 01:45 05/25/24 01:56 Temperature Pulse Rate 95 74 80 Respiratory Rate 22 H 18 21 H Blood Pressure Pulse Oximetry 90 93 Oxygen Delivery Oxygen Flow Rate 05/25/24 02:05 05/25/24 02:58 05/25/24 03:01 Temperature Pulse Rate 88 74 75 Respiratory Rate 16 18 19 Blood Pressure 120/70 123/82 Pulse Oximetry 96 92 Oxygen Delivery Oxygen Flow Rate 05/25/24 03:16 05/25/24 05:16 05/25/24 06:27 Temperature Pulse Rate 78 73 71 Respiratory Rate 21 H 18 18 Blood Pressure 134/81 96/54 L Pulse Oximetry 93 91 92 Oxygen Delivery Oxygen Flow Rate 05/25/24 08:29 05/25/24 09:00 Temperature 97.4 F L Pulse Rate 76 Respiratory Rate 18 Blood Pressure 124/77 Pulse Oximetry 92 92 Oxygen Delivery Nasal Cannula Oxygen Flow Rate 5 Intake/Output Intake/Output: Intake & Output 05/22/24 05/23/24 05/25/24 05/25/24 23:59 23:59 00:59 23:59 Intake Total 250 Balance 250 Meds/Results Medications: Active Medications Generic Name Dose Route Start Last Admin Trade Name Freq PRN Reason Stop Dose Admin Acetaminophen 650 mg 05/24/24 20:42 Acetaminophen 325 Mg Tablet PO Q4H PRN Mild Pain (1-3) or Fever Albuterol/Ipratropium 3 ml 05/25/24 02:00 05/25/24 08:59 Ipratropium 0.5 Mg/Albuterol Sulfate 2.5 Mg Ampul.Neb 3 Ml INHALATION Not Given Q6HRT [facility] Alprazolam 0.25 mg 05/25/24 03:11 Alprazolam (*Crx) 0.25 Mg Tablet PO BID PRN Anxiety Enoxaparin Sodium 40 mg 05/25/24 09:00 05/25/24 08:27 Enoxaparin 40 Mg/0.4 Ml Syringe SUB-Q Not Given DAILY [facility] Fluticasone Propionate 2 spray 05/25/24 09:00 05/25/24 10:32 Fluticasone Propionate 0.05% Na Spr 16 Gm Btl (*Bkc) NASAL 2 spray QAM MICHAEL Administration Guaifenesin 1,200 mg 05/25/24 09:00 05/25/24 08:23 Guaifenesin 12 Hr 600 Mg Tabcr PO 1,200 mg Q12HR MICHAEL Administration Levofloxacin 750 mg 05/25/24 21:00 Levofloxacin 750 Mg Tablet PO HS MICHAEL Loratadine 10 mg 05/25/24 09:00 05/25/24 08:23 Loratadine 10 Mg Tablet PO 10 mg QAM MICHAEL Administration Methylprednisolone Sodium Succinate 60 mg 05/25/24 00:00 05/25/24 06:26 Methylprednisolone Sod Succ 125 Mg Vial IV PUSH 60 mg Q6HR MICHAEL Administration Montelukast Sodium 10 mg 05/25/24 03:15 05/25/24 03:56 Montelukast Sodium 10 Mg Tablet PO 10 mg HS MICHAEL Administration Ondansetron HCl 4 mg 05/24/24 20:42 Ondansetron Inj 4 Mg/2 Ml Vial IV PUSH Q4H PRN Nausea Oseltamivir Phosphate 75 mg 05/24/24 21:00 05/25/24 08:23 Oseltamivir Phosphate 75 Mg Capsule PO 05/29/24 20:59 75 mg Q12HR MICHAEL Administration Radiology Results: ITS Impressions Chest X-Ray 05/24/24 18:50 IMPRESSION: No acute cardiopulmonary process. Labs Labs: Laboratory Results - last 24 hr 05/24/24 05/24/24 05/25/24 18:37 18:39 06:53 WBC 7.8 4.7 RBC 5.57 5.59 Hgb 15.8 16.0 Hct 49.0 49.5 MCV 88.0 88.6 MCH 28.4 28.6 MCHC 32.2 32.3 RDW 14.2 14.1 Plt Count 240 225 MPV 9.1 9.1 Immature Gran % (Auto) 0.3 0.4 Neut % (Auto) 74.7 H 88.0 H Lymph % (Auto) 15.3 L 10.6 L [place] % (Auto) 9.0 H 0.8 L Eos % (Auto) 0.6 0.0 Baso % (Auto) 0.1 L 0.2 Lymph # (Auto) 1.19 0.50 L [place] # (Auto) 0.7 H 0.0 L Eos # (Auto) 0.1 0.0 Baso # (Auto) 0.0 0.0 Abs Immat Gran (auto) 0.02 0.02 Absolute Neuts (auto) 5.8 4.2 Absolute Nucleated RBC 0.000 0.000 Nucleated RBC % 0.0 0.0 Sodium 139 137 Potassium 4.0 4.8 Chloride 103 100 Carbon Dioxide 30 30 Anion Gap 6 7 BUN 13 D 13 Creatinine 0.94 0.79 Estim Creat Clear Calc 79 93 Estimated GFR > 60 > 60 Glucose 110 148 H Calcium 8.8 8.9 Magnesium 2.1 2.3 Total Bilirubin 0.6 0.5 AST 32 28 ALT 48 50 Alkaline Phosphatase 73 75 Total Protein 7.0 7.0 Albumin 4.0 4.1 Influenza A (RT-PCR) Positive A Influenza B (RT-PCR) Negative RSV (RT-PCR) Negative SARS-CoV-2 RNA (RT-PCR) Negative Quality VTE Prophylaxis VTE prophylaxis: pharmacologic ordered
--- NOTE | 2024-05-25 13:15 | PC.NURSE ---
pt lunch tray ordered at this time
--- NOTE | 2024-05-25 14:43 | ADMGEN ---
This patient, Ken Galeano Jr., was admitted to Virtual Bed 3rd Floor-2. Patient/family oriented to hospital policies and general routines including ID bracelet, bed and alarms, visiting hours, pain management, procedures, bathroom and other care routines, personal items, smoking policy, room service/diet, and visiting hours. Information on how to activate the Rapid Response Team has been discussed. Patient/Family are encouraged to report perceived risks to care and to ask questions if they do not understand what they are told or what they should do.
[2024-05-25] MEDS: levoFLOXacin 750 MG TABLET PO (20:22)
[2024-05-26] VITALS (18 sets, daily range): BP systolic 124–135; BP diastolic 56–77; PULSE 61–76; RESP 16–20; TEMP 35.9–36.6; O2SAT 91–98
[2024-05-26] MEDS: methylPREDNISolone SOD SUCC 125 MG VIAL 60 MG IV PUSH ×3 (00:01→20:22)
[2024-05-26] MEDS: IPRATROPIUM 0.5 MG/ALBUTEROL SULFATE 2.5 MG AMPUL.NEB 3 ML INHALATION ×4 (02:14→20:46)
[2024-05-26] MEDS: ALPRAZolam (*CRX) 0.25 MG TABLET PO ×2 (05:15→20:22)
[2024-05-26] MEDS: ACETAMINOPHEN 325 MG TABLET 650 MG PO ×2 (05:15→20:25)
[2024-05-26 05:37] LABS: Basophils Percent Auto 0.1 % (0.2-1.2); Hematocrit 48.8 % (42.0-52.0); Hemoglobin 15.7 g/dL (14.0-18.0); Immature Granulocyte Absolute 0.04 K/mm3 (0.00-0.031); Immature Granulocyte Percent A 0.4 % (0-0.5); Lymphocytes Absolute Auto 0.71 K/mm3 (0.9-3.2); Lymphocytes Percent Auto 7.5 % (18.3-44.2); Mean Corpuscular HGB Conc 32.2 g/dl (32-36); Mean Corpuscular Hemoglobin 28.1 pg (26-34); Mean Corpuscular Volume 87.5 fl (80-100); Mean Platelet Volume 9.5 fl (7.4-10.4); Monocytes Absolute Auto 0.3 K/mm3 (0.1-0.6); Monocytes Percent Auto 3.6 % (2.6-8.5); Neutrophils Absolute Auto 8.3 K/mm3 (1.3-6.7); Neutrophils Percent Auto 88.4 % (45.5-73.1); Platelet Count Result 265 k/mm3 (150-375); Red Blood Count 5.58 M/mm3 (4.6-6.20); Red Cell Distribution Width 13.6 % (11.5-14.5); White Blood Count 9.4 K/mm3 (4.5-10.0)
[2024-05-26 05:48] LABS: Alanine Aminotransferase 49 U/L (6-50); Albumin Level 3.9 g/dL (3.5-5.1); Alkaline Phosphatase 67 U/L (38-126); Anion Gap 8 mmol/L (4-12); Aspartate Amino Transferase 23 U/L (17-59); Bilirubin,Total 0.5 mg/dL (0.2-1.3); Blood Urea Nitrogen 18 mg/dL (9-20); Carbon Dioxide 31 mmol/L (22-30); Chloride 99 mmol/L (98-107); Estimated CRCL calculation 97 ml/min; Estimated Glomerular Filt Rate > 60; Glucose 135 mg/dL (65-110); Potassium 4.5 mmol/L (3.4-5.0); Sodium 138 mmol/L (137-145)
--- NOTE | 2024-05-26 07:21 | P.PNIM_ITS ---
Progress Note: A&P Assessment and Plan (1) Acute respiratory failure with hypoxia: Code(s): J96.01 - Acute respiratory failure with hypoxia Status: Acute Assessment and Plan: * Chest x-ray was negative for any acute cardiopulmonary process * Respiratory panel positive for influenza A onset 5 days ago * Patient was started on Augmentin and Prednisone by Dr. Craven's office on Saturday with no improvement in his symptoms. Recently recovered from Influenza B * Levaquin given in ED and we will continue Levaquin x5 days considering his respiratory history. * Patient was given 125 mg IV push Solu-Medrol and 1 g of magnesium while in the ED * Continue Solu-Medrol 60 mg q.6 hour--weaning as appropriate * Continue DuoNebs * Pep therapy and incentive spirometry ordered * Continue to wean O2 for sat greater than 92%, currently on 4 L nasal cannula * Patient refused ABG testing * Continuous cardiac monitoring * Started on Tamiflu however his symptoms started 5 days ago. Considering his pulmonary history, we will still treat. 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, die baker - consulted Pulmonology while inpt (4) Tobacco abuse: Code(s): Z72.0 - Tobacco use Status: Acute Assessment and Plan: * Current every day smoker 1 ppd x40 years * Discussed tobacco cessation * Refused Nicotine patch or gum (5) Influenza A: Code(s): J10.1 - Influenza due to other identified influenza virus with other respiratory manifestations Status: Acute Assessment and Plan: * Respiratory panel positive for influenza A * Continue Tamiflu * See above plan of care (6) Anxiety: Code(s): F41.9 - Anxiety disorder, unspecified Status: Acute Assessment and Plan: * Continue alprazolam (7) Hyperlipidemia: Code(s): E78.5 - Hyperlipidemia, unspecified Status: Acute Assessment and Plan: Recently diagnosed * Unsure what medication used, awaiting nursing to address medication reconciliation. Will restart when known. Time Spent With Patient Time with patient: Greater than 35 minutes (40 minutes) Subjective Date/time seen: 05/26/24 07:21 Interval history: 63-year-old male with PMH/of Samter's triad, COPD with home O2 as needed, asthma, emphysema, eczema, tobacco abuse, GERD who presented to the hospital with complaints of shortness of breath/dyspnea. Patient reports the following history of presenting illness. He states that last weekend he was watching his niece and nephew who were sick and then about 4-5 days ago he started to have a cough, congestion, sore throat which progressed into worsening shortness of breath/dyspnea. He is a patient of Dr. Craven die baker and called them on Saturday of this past week about his symptoms and they placed him on Augmentin and Prednisone. His symptoms did not improve and he presented here for further evaluation. He did mention that he recently got over Influenza B prior to this onset. He denies any fever, chills, nausea, vomiting, abdominal pain, chest pain. He does report diarrhea since the onset of his symptoms. Workup in the hospital included a chest x-ray which was negative for any acute cardiopulmonary process. Initial labs showed a normal white blood cell count of 7.8 otherwise unremarkable. Respiratory panel was positive for influenza A. EKG showed normal sinus rhythm with supraventricular premature complexes with a rate of 82, QTC 401. Patient was given Duo Nebs, 125 mg IV push Solu-Medrol, 1 g of magnesium, Levaquin, and started on Tamiflu while in the ED. pt is seen and examined. currently on 5l per nc- satting 90-92% 05/26- patient today reports he does feel somewhat improved today, he is using his incentive spirometer while sitting up in the chair this morning. States he is able to expectorates more sputum. He is still on 4 L per nasal cannula satting 93%. States he still becomes very short of breath when he gets up to ambulate including to the restroom, otherwise he states he feels as if he is improving. He currently denies any nausea, vomiting, diarrhea denies any headache or dizziness, he denies any chest pain or distress. Review of Systems Review of Systems: All systems reviewed & are unremarkable except as noted in HPI and below Exam Const: General: cooperative, no acute distress, alert and awake Nutritional Appearance: average body habitus Orientation/consciousness: patient oriented x3 HENMT: Head: normal to inspection and normocephalic Eyes: General: appearance normal, both eyes and all related structures Neck: Neck: full ROM, no lymphadenopathy and supple Chest: Chest palpation & inspection: normal inspection of the chest Resp: Effort & Inspection: normal respiratory effort Auscultation: rhonchi and diminished lung sounds bilateral in the lower lung kramer Cardio: Jugular venous distension: no JVD Rate: regular rate Rhythm: regular rhythm Heart sounds: S1 normal heart sound present and S2 normal heart sound present Peripheral pulses: Peripheral pulses 2+ throughout GI: Inspection: normal to inspection GI Palp: Yes Soft to palpation Auscultation: normal bowel sounds Skin: General skin exam: normal color, no rashes or lesions noted and elasticity normal Neuro: General: patient oriented x3, tone normal and moves all extremities Extrem: General: normal to inspection, full ROM and capillary refill normal Psych: Appearance: grossly normal Mental Status: mental status grossly normal Speech and movement: Normal speech and movement present Affect: normal affect Attitude: cooperative Thought process: Normal thought proc ess present Objective Data Vital Signs Vital Signs: Vital Signs - 24 hr 05/25/24 08:29 05/25/24 09:00 05/25/24 12:00 Temperature 97.4 F L Pulse Rate 76 Respiratory Rate 18 Blood Pressure 124/77 Pulse Oximetry 92 92 94 Oxygen Delivery Nasal Cannula Nasal Cannula Oxygen Flow Rate 5 5 05/25/24 14:36 05/25/24 15:03 05/25/24 15:18 Temperature 97.9 F 97.1 F L Pulse Rate 78 83 Respiratory Rate 18 18 Blood Pressure 130/70 121/67 Pulse Oximetry 94 95 92 Oxygen Delivery Nasal Cannula Oxygen Flow Rate 5 05/25/24 16:00 05/25/24 16:56 05/25/24 20:00 Temperature 97.6 F Pulse Rate 79 77 Respiratory Rate 18 Blood Pressure 126/72 Pulse Oximetry 91 94 Oxygen Delivery Nasal Cannula Oxygen Flow Rate 5 05/25/24 20:00 05/25/24 20:05 05/25/24 20:08 Temperature Pulse Rate 73 74 Respiratory Rate 16 Blood Pressure Pulse Oximetry 95 Oxygen Delivery Nasal Cannula Oxygen Flow Rate 7 05/25/24 20:09 05/25/24 20:16 05/25/24 22:00 Temperature 97.6 F Pulse Rate 77 72 Respiratory Rate 16 18 Blood Pressure 128/68 Pulse Oximetry 94 95 Oxygen Delivery Nasal Cannula Oxygen Flow Rate 5 05/26/24 00:00 05/26/24 00:00 05/26/24 02:14 Temperature 97.7 F Pulse Rate 76 74 66 Respiratory Rate 18 16 Blood Pressure 135/77 Pulse Oximetry 95 Oxygen Delivery Oxygen Flow Rate 05/26/24 02:21 05/26/24 04:00 05/26/24 06:00 Temperature 97.8 F Pulse Rate 72 69 75 Respiratory Rate 16 18 Blood Pressure 128/66 Pulse Oximetry 98 Oxygen Delivery Oxygen Flow Rate Intake/Output Intake/Output: Intake & Output 05/23/24 05/25/24 05/25/24 05/26/24 23:59 00:59 23:59 23:59 Intake Total 250 444 Balance 250 444 Meds/Results Medications: Active Medications Generic Name Dose Route Start Last Admin Trade Name Freq PRN Reason Stop Dose Admin Acetaminophen 650 mg 05/24/24 20:42 05/26/24 05:15 Acetaminophen 325 Mg Tablet PO 650 mg Q4H PRN Administration Mild Pain (1-3) or Fever Albuterol/Ipratropium 3 ml 05/25/24 02:00 05/26/24 02:14 Ipratropium 0.5 Mg/Albuterol Sulfate 2.5 Mg Ampul.Neb 3 Ml INHALATION 3 ml Q6HRT MICHAEL Administration Alprazolam 0.25 mg 05/25/24 03:11 05/26/24 05:15 Alprazolam (*Crx) 0.25 Mg Tablet PO 0.25 mg BID PRN Administration Anxiety Enoxaparin Sodium 40 mg 05/25/24 09:00 05/25/24 08:27 Enoxaparin 40 Mg/0.4 Ml Syringe SUB-Q Not Given DAILY MICHAEL Fluticasone Propionate 2 spray 05/25/24 09:00 05/25/24 10:32 Fluticasone Propionate 0.05% Na Spr 16 Gm Btl (*Bkc) NASAL 2 spray QAM MICHAEL Administration Guaifenesin 1,200 mg 05/25/24 09:00 05/25/24 20:22 Guaifenesin 12 Hr 600 Mg Tabcr PO 1,200 mg Q12HR MICHAEL Administration Levofloxacin 750 mg 05/25/24 21:00 05/25/24 20:22 Levofloxacin 750 Mg Tablet PO 750 mg HS MICHAEL Administration Loratadine 10 mg 05/25/24 09:00 05/25/24 08:23 Loratadine 10 Mg Tablet PO 10 mg QAM MICHAEL Administration Methylprednisolone Sodium Succinate 60 mg 05/25/24 00:00 05/26/24 05:09 Methylprednisolone Sod Succ 125 Mg Vial IV PUSH 60 mg Q6HR MICHAEL Administration Montelukast Sodium 10 mg 05/25/24 03:15 05/25/24 20:21 Montelukast Sodium 10 Mg Tablet PO 10 mg HS MICHAEL Administration Ondansetron HCl 4 mg 05/24/24 20:42 Ondansetron Inj 4 Mg/2 Ml Vial IV PUSH Q4H PRN Nausea Oseltamivir Phosphate 75 mg 05/24/24 21:00 05/25/24 20:22 Oseltamivir Phosphate 75 Mg Capsule PO 05/29/24 20:59 75 mg Q12HR MICHAEL Administration Radiology Results: ITS Impressions Chest X-Ray 05/24/24 18:50 IMPRESSION: No acute cardiopulmonary process. Labs Labs: Laboratory Results - last 24 hr 05/26/24 05:03 WBC 9.4 RBC 5.58 Hgb 15.7 Hct 48.8 MCV 87.5 MCH 28.1 MCHC 32.2 RDW 13.6 Plt Count 265 MPV 9.5 Immature Gran % (Auto) 0.4 Neut % (Auto) 88.4 H Lymph % (Auto) 7.5 L [place] % (Auto) 3.6 Eos % (Auto) 0.0 Baso % (Auto) 0.1 L Lymph # (Auto) 0.71 L [place] # (Auto) 0.3 Eos # (Auto) 0.0 Baso # (Auto) 0.0 Abs Immat Gran (auto) 0.04 H Absolute Neuts (auto) 8.3 H Absolute Nucleated RBC 0.000 Nucleated RBC % 0.0 Sodium 138 Potassium 4.5 Chloride 99 Carbon Dioxide 31 H Anion Gap 8 BUN 18 Creatinine 0.76 Estim Creat Clear Calc 97 Estimated GFR > 60 Glucose 135 H Calcium 9.0 Total Bilirubin 0.5 AST 23 ALT 49 Alkaline Phosphatase 67 Total Protein 7.0 Albumin 3.9 Quality VTE Prophylaxis VTE prophylaxis: pharmacologic ordered Hospitalist MIPS Advance Care Plan I have confirmed that the patient's Advanced Care Plan is present, code status is documented, or surrogate decision maker is listed in patient medical record.: Yes Medication Reconciliation I have utilized all available resources to obtain, update and review the patients current medications (includes all prescriptions, OTC, herbals, cannabis, and nutritional supplements).: Yes
[2024-05-26] MEDS: OSELTAMIVIR PHOSPHATE 75 MG CAPSULE PO ×2 (08:02→20:22)
[2024-05-26] MEDS: guaiFENesin 12 HR 600 MG TABCR 1200 MG PO ×2 (08:02→20:22)
[2024-05-26] MEDS: LORATADINE 10 MG TABLET PO (08:02)
[2024-05-26] MEDS: FLUTICASONE PROPIONATE 0.05% NA SPR 16 GM BTL (*BKC) 2 SPRAY NASAL (08:05)
--- NOTE | 2024-05-26 09:27 | PM.CNPUL ---
Assessment and Plan Assessment and plan (1) Acute and chronic respiratory failure with hypoxia: Code(s): J96.21 - Acute and chronic respiratory failure with hypoxia Status: Acute Assessment and Plan: This 63-year-old male with a history of asthma-COPD overlap syndrome has experienced frequent hospitalizations due to exacerbations of obstructive airway disease. He was initially treated with Dupixent and is currently receiving monthly Tezspire injections. He presented with a COPD exacerbation triggered by a recent influenza A infection. His respiratory status is showing improvement with the current treatment regimen, which includes IV steroids, nebulized short-acting bronchodilators, and antibiotics. Although wheezing is still present on physical examination, he does not exhibit shortness of breath while on supplemental oxygen. The viral illness, which began 7 days before hospitalization, likely progressed to exacerbate his underlying airway disease. As the chest X-ray was negative, antibiotics may no longer be necessary. Plan: Continue IV steroids, short-acting bronchodilators, and DVT prophylaxis. DC antibiotic. Reduce the IV steroid dosage to Solu-Medrol every 12 hours. Continue monitoring the patient's respiratory status in collaboration with the healthcare team. 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 He has a history of asthma-COPD overlap syndrome with frequent exacerbations more than two years ago and is chronically on maintenance bronchodilators and supplemental oxygen on an as-needed basis. Given his history of nasal polyps, allergies and elevated eosinophils, he receives monthly Tezspire injections, managed by a local hospitalist nocturnist physician. The patient was in his usual state of health until approximately seven days prior to this admission when he began experiencing upper respiratory symptoms and coughing. Despite being prescribed Augmentin and prednisone by his laundry technician, there was no improvement. Two days ago, he presented to the emergency room with hypoxemia and worsening symptoms, including shortness of breath, coughing, and wheezing. A chest X-ray was negative. He has been diagnosed with influenza A and is currently receiving treatment for both the viral infection and a COPD exacerbation, including antibiotics, nebulized short-acting bronchodilators, and IV steroids. The patient reports that his breathing seems to be improving. Currently, his shortness of breath is much improved while still on supplemental oxygen. He has no fever, chills, chest pain, or hemoptysis. Review of Systems Review of Systems: All systems reviewed & are unremarkable except as noted in HPI and below (HPI and below) PMFSH Past Medical History Medical History Samter's triad Nasal polyposis Eczema Tobacco abuse Acute and chronic respiratory failure with hypoxia History of home oxygen therapy Tries not to use it, but when he does he normally has at 3L COPD (chronic obstructive pulmonary disease) Tobacco abuse Acute and chronic respiratory failure with hypoxia COPD exacerbation Surgical History Surgical History History of cholecystectomy Family History Family History Father Family history of congestive heart failure Social History Social History Smoking packs per day: 1 Smoking cigarettes per day: 20.0 Years smoked: 40 Smoking pack-years: 40.00 Smoking status: Current every day smoker Tobacco type: cigarettes Alcohol intake: current Drinks per week: 8 Substance use: never Substance use type: does not use Do You Feel Safe in your Home?: Yes Lack of Transportation: No Lack of Food: Never True Current Housing: I Have Housing Concerned About Future Housing: No Difficulty Paying Gas/Electric Bills: No Difficulty Paying for Meds: No Currently Unemployed: No Education: High School Diploma/GED Difficulty w/ Childcare or Family Care: No Living arrangements: with family Occupation/Education: other Additional occupation/education comments: DISABLED Gender identity (if verbalized by the patient): Male Spiritual care concerns: No Agree to blood products: Yes Meds Home Medications and Allergies Home Medications ?Medication ?Instructions ?Recorded ?Confirmed ?Type diphenhydramine HCl 25 mg capsule 25 mg PO TID PRN allergy symptoms 03/13/19 05/25/24 History (Benadryl) albuterol sulfate 90 mcg/actuation 2 inh inhalation Q4-6H PRN 05/15/21 05/25/24 Rx aerosol inhaler (Ventolin HFA) shortness of breath or wheezing #8.5 grams cetirizine 10 mg capsule (Zyrtec) 10 mg PO DAILY 90 days #90 caps 05/17/21 05/25/24 Rx alprazolam 0.25 mg tablet 0.25 mg PO BID PRN anxiety #60 tabs 05/31/21 05/25/24 Rx budesonide 160 mcg-glycopyr 9 2 inh inhalation QAM AND QPM 11/28/21 05/25/24 History mcg-formot 4.8 mcg/actuation HFA inhaler (Breztri Aerosphere) fluticasone propionate 93 1 spray intranasal Q12H 11/28/21 05/25/24 History mcg/actuation breath activated aerosol (Xhance) tezepelumab-ekko 210 mg/1.91 mL 210 mg subcut ONCE 09/11/23 05/25/24 History (110 mg/mL) subcutaneous syringe (Tezspire) ipratropium 0.5 mg-albuterol 3 mg 3 ml inhalation QID PRN shortness 04/01/24 05/25/24 Rx (2.5 mg base)/3 mL nebulization of breath or wheezing #180 mL soln montelukast 10 mg tablet See Rx Instructions .Route 04/01/24 05/25/24 Rx .COMPLEX #30 tabs amoxicillin 875 mg-potassium 1 tablet PO BID 7 days #14 tabs 05/20/24 05/25/24 Rx clavulanate 125 mg tablet prednisone 10 mg tablet 10 mg PO DIRECTED #30 tabs 05/20/24 05/25/24 Rx atorvastatin 20 mg tablet 20 mg PO QPM high cholesterol 05/25/24 05/25/24 History Allergies Allergy/AdvReac Type Severity Reaction Status Date / Time aspirin Allergy Severe Anaphylactic Verified 05/24/24 18:36 Shock ibuprofen Allergy Severe Anaphylactic Verified 05/24/24 18:36 Shock ketorolac Allergy Severe Anaphylactic Verified 05/24/24 18:36 Shock methylprednisolone Allergy Severe Anaphylactic Verified 05/24/24 18:36 Shock naproxen Allergy Severe Anaphylactic Verified 05/24/24 18:36 Shock NSAIDS (Non-Steroidal Allergy Severe Anaphylactic Verified 05/24/24 18:36 Anti-Inflamma Shock Vital Signs Vital Signs - 24 hr 05/25/24 12:00 05/25/24 14:36 05/25/24 15:03 Temperature 36.6 C Pulse Rate 78 Respiratory Rate 18 Blood Pressure 130/70 Pulse Oximetry 94 94 95 Oxygen Delivery Nasal Cannula Nasal Cannula Oxygen Flow Rate 5 5 05/25/24 15:18 05/25/24 16:00 05/25/24 16:56 Temperature 36.2 C L 36.4 C Pulse Rate 83 79 77 Respiratory Rate 18 18 Blood Pressure 121/67 126/72 Pulse Oximetry 92 91 Oxygen Delivery Oxygen Flow Rate 05/25/24 20:00 05/25/24 20:00 05/25/24 20:05 Temperature Pulse Rate 73 74 Respiratory Rate 16 Blood Pressure Pulse Oximetry 94 Oxygen Delivery Nasal Cannula Oxygen Flow Rate 5 05/25/24 20:08 05/25/24 20:09 05/25/24 20:16 Temperature Pulse Rate 77 Respiratory Rate 16 Blood Pressure Pulse Oximetry 95 94 Oxygen Delivery Nasal Cannula Nasal Cannula Oxygen Flow Rate 7 5 05/25/24 22:00 05/26/24 00:00 05/26/24 00:00 Temperature 36.4 C 36.5 C Pulse Rate 72 76 74 Respiratory Rate 18 18 Blood Pressure 128/68 135/77 Pulse Oximetry 95 95 Oxygen Delivery Oxygen Flow Rate 05/26/24 02:14 05/26/24 02:21 05/26/24 04:00 Temperature Pulse Rate 66 72 69 Respiratory Rate 16 16 Blood Pressure Pulse Oximetry Oxygen Delivery Oxygen Flow Rate 05/26/24 06:00 05/26/24 07:42 05/26/24 07:42 Temperature 36.6 C Pulse Rate 75 62 Respiratory Rate 18 20 Blood Pressure 128/66 Pulse Oximetry 98 93 Oxygen Delivery Nasal Cannula Oxygen Flow Rate 4.5 05/26/24 07:48 05/26/24 08:02 05/26/24 08:02 Temperature Pulse Rate 66 66 Respiratory Rate 20 Blood Pressure Pulse Oximetry 93 Oxygen Delivery Nasal Cannula Oxygen Flow Rate 4.5 Exam Narrative: GENERAL APPEARANCE: Well developed, well nourished, alert and cooperative, and appears to be in no acute distress while on supplemental oxygen via nasal cannula SKIN: Inspection of the skin reveals no rashes, ulcerations or petechiae. HEENT: Sclerae anicteric and conjunctivae pink and moist. Extraocular movements were intact and pupils were equal, round, and reactive to light. The oral mucosa, hard and soft palate, tongue and posterior pharynx were normal. NECK: Supple. There was no thyroid enlargement, and no tenderness, or masses were felt. CHEST: Normal AP diameter and normal contour without any kyphoscoliosis. LUNGS: Diffuse wheezing bilaterally primarily expiratory CARDIAC: There was a regular rate and rhythm without any murmurs, gallops, rubs. ABDOMEN: Soft and nontender with normal bowel sounds. There was no organomegaly. LYMPH NODES: No lymphadenopathy was appreciated in the neck. Is EXTREMITIES: No cyanosis, clubbing or edema. NEUROLOGIC: Alert and oriented x 3. Normal affect. Results Laboratory Findings 05/26/24 05:03 05/26/24 05:03 Abnormal lab findings: Abnormal Labs 05/24/24 05/24/24 05/25/24 18:37 18:39 06:53 Neut % (Auto) 74.7 H 88.0 H Lymph % (Auto) 15.3 L 10.6 L [place] % (Auto) 9.0 H 0.8 L Baso % (Auto) 0.1 L Lymph # (Auto) 0.50 L [place] # (Auto) 0.7 H 0.0 L Abs Immat Gran (auto) Absolute Neuts (auto) Carbon Dioxide Glucose 148 H Influenza A (RT-PCR) Positive A 05/26/24 05:03 Neut % (Auto) 88.4 H Lymph % (Auto) 7.5 L [place] % (Auto) Baso % (Auto) 0.1 L Lymph # (Auto) 0.71 L [place] # (Auto) Abs Immat Gran (auto) 0.04 H Absolute Neuts (auto) 8.3 H Carbon Dioxide 31 H Glucose 135 H Influenza A (RT-PCR)
[2024-05-26] MEDS: MONTELUKAST SODIUM 10 MG TABLET PO (20:22)
[2024-05-27] VITALS (19 sets, daily range): BP systolic 110–140; BP diastolic 59–73; PULSE 57–91; RESP 12–20; TEMP 36.4–36.6; O2SAT 92–96
[2024-05-27] MEDS: IPRATROPIUM 0.5 MG/ALBUTEROL SULFATE 2.5 MG AMPUL.NEB 3 ML INHALATION ×4 (02:28→19:28)
[2024-05-27 05:24] LABS: Basophils Percent Auto 0.2 % (0.2-1.2); Hematocrit 48.4 % (42.0-52.0); Hemoglobin 15.5 g/dL (14.0-18.0); Immature Granulocyte Absolute 0.12 K/mm3 (0.00-0.031); Lymphocytes Absolute Auto 0.85 K/mm3 (0.9-3.2); Lymphocytes Percent Auto 7.1 % (18.3-44.2); Mean Corpuscular Hemoglobin 28.2 pg (26-34); Mean Platelet Volume 9.4 fl (7.4-10.4); Monocytes Absolute Auto 0.3 K/mm3 (0.1-0.6); Monocytes Percent Auto 2.7 % (2.6-8.5); Neutrophils Absolute Auto 10.7 K/mm3 (1.3-6.7); Platelet Count Result 274 k/mm3 (150-375); Red Cell Distribution Width 13.6 % (11.5-14.5)
[2024-05-27 05:36] LABS: Alanine Aminotransferase 94 U/L (6-50); Albumin Level 3.7 g/dL (3.5-5.1); Alkaline Phosphatase 63 U/L (38-126); Anion Gap 7 mmol/L (4-12); Aspartate Amino Transferase 40 U/L (17-59); Bilirubin,Total 0.4 mg/dL (0.2-1.3); Blood Urea Nitrogen 23 mg/dL (9-20); Calcium 8.6 mg/dL (8.4-10.2); Carbon Dioxide 32 mmol/L (22-30); Chloride 99 mmol/L (98-107); Estimated CRCL calculation 90 ml/min; Estimated Glomerular Filt Rate > 60; Glucose 137 mg/dL (65-110); Potassium 4.6 mmol/L (3.4-5.0); Sodium 138 mmol/L (137-145)
--- NOTE | 2024-05-27 08:42 | PM.PNPUL ---
Progress Note: A&P Assessment and Plan (1) Acute and chronic respiratory failure with hypoxia: Code(s): J96.21 - Acute and chronic respiratory failure with hypoxia Status: Acute (2) Acute exacerbation of chronic obstructive airways disease: Code(s): J44.1 - Chronic obstructive pulmonary disease with (acute) exacerbation Status: Acute Assessment and Plan: This 63-year-old male with a history of asthma-COPD overlap syndrome has experienced frequent hospitalizations due to exacerbations of obstructive airway disease. He was initially treated with Dupixent and is currently receiving monthly Tezspire injections. He presented with a COPD exacerbation triggered by a recent influenza A infection. His respiratory status is showing improvement with the current treatment regimen, which includes IV steroids, nebulized short-acting bronchodilators, and antibiotics. Although wheezing is still present on physical examination, he does not exhibit shortness of breath while on supplemental oxygen. The viral illness, which began 7 days before hospitalization, likely progressed to exacerbate his underlying airway disease. As the chest X-ray was negative, antibiotics may no longer be necessary. Over the last 24 hours further clinical improvement noted. Physical exam: localized wheezing mostly on right, improve from yesterday. Plan: Have decreased IV steroids to once daily, continue with short-acting bronchodilators, and DVT prophylaxis. Continue monitoring the patient's respiratory status. (3) Chronic respiratory failure: Qualifiers: Respiratory failure complication: hypoxia Qualified Code(s): J96.11 - Chronic respiratory failure with hypoxia Code(s): J96.10 - Chronic respiratory failure, unspecified whether with hypoxia or hypercapnia Status: Acute (4) Eosinophilic asthma: Code(s): J82.83 - Eosinophilic asthma Status: Acute (5) Influenza A: Code(s): J10.1 - Influenza due to other identified influenza virus with other respiratory manifestations Status: Acute Subjective Date/time seen: 05/27/24 08:42 Interval history: Patient has no new respiratory symptoms. History better with less shortness of breath and less wheezing. Still on supplemental oxygen via nasal cannula. Review of Systems Review of Systems: All systems reviewed & are unremarkable except as noted in HPI and below (HPI and below) Exam Narrative: GENERAL APPEARANCE: Well developed, well nourished, alert and cooperative, and appears to be in no acute distress while on supplemental oxygen via nasal cannula SKIN: Inspection of the skin reveals no rashes, ulcerations or petechiae. HEENT: Sclerae anicteric and conjunctivae pink and moist. Extraocular movements were intact and pupils were equal, round, and reactive to light. The oral mucosa, hard and soft palate, tongue and posterior pharynx were normal. NECK: Supple. There was no thyroid enlargement, and no tenderness, or masses were felt. CHEST: Normal AP diameter and normal contour without any kyphoscoliosis. LUNGS: Diffuse wheezing bilaterally primarily expiratory CARDIAC: There was a regular rate and rhythm without any murmurs, gallops, rubs. ABDOMEN: Soft and nontender with normal bowel sounds. There was no organomegaly. LYMPH NODES: No lymphadenopathy was appreciated in the neck. Is EXTREMITIES: No cyanosis, clubbing or edema. NEUROLOGIC: Alert and oriented x 3. Normal affect. Objective Data Vital Signs Vital Signs: Vital Signs - 24 hr 05/26/24 12:00 05/26/24 14:00 05/26/24 14:13 Temperature 36.4 C Pulse Rate 61 76 67 Respiratory Rate 17 20 Blood Pressure 124/65 Pulse Oximetry 94 Oxygen Delivery Oxygen Flow Rate 05/26/24 14:22 05/26/24 16:00 05/26/24 16:00 Temperature 36.4 C Pulse Rate 76 72 62 Respiratory Rate 20 17 Blood Pressure 128/74 Pulse Oximetry 95 Oxygen Delivery Oxygen Flow Rate 05/26/24 20:00 05/26/24 20:00 05/26/24 20:09 Temperature 36.2 C L Pulse Rate 66 65 Respiratory Rate 20 Blood Pressure 133/56 L Pulse Oximetry 98 98 Oxygen Delivery Nasal Cannula Oxygen Flow Rate 4 05/26/24 20:48 05/26/24 20:48 05/26/24 20:54 Temperature Pulse Rate 71 68 Respiratory Rate 18 18 Blood Pressure Pulse Oximetry 91 Oxygen Delivery Nasal Cannula Oxygen Flow Rate 4 05/27/24 00:00 05/27/24 02:28 05/27/24 02:36 Temperature Pulse Rate 66 64 57 L Respiratory Rate 12 12 Blood Pressure Pulse Oximetry Oxygen Delivery Oxygen Flow Rate 05/27/24 04:00 05/27/24 05:26 05/27/24 07:40 Temperature 36.4 C Pulse Rate 60 66 Respiratory Rate 20 Blood Pressure 110/63 Pulse Oximetry 94 95 Oxygen Delivery Nasal Cannula Oxygen Flow Rate 4 05/27/24 07:40 05/27/24 08:02 Temperature Pulse Rate 68 67 Respiratory Rate 20 20 Blood Pressure Pulse Oximetry Oxygen Delivery Oxygen Flow Rate Intake/Output Intake/Output: Intake & Output 05/25/24 05/25/24 05/26/24 05/27/24 00:59 23:59 23:59 23:59 Intake Total 562 164 1320 300 Output Total 450 Balance 234 988 2612 -150 Meds/Results Medications: Active Medications Generic Name Dose Route Start Last Admin Trade Name Freq PRN Reason Stop Dose Admin Acetaminophen 650 mg 05/24/24 20:42 05/26/24 20:25 Acetaminophen 325 Mg Tablet PO 650 mg Q4H PRN Administration Mild Pain (1-3) or Fever Albuterol/Ipratropium 3 ml 05/25/24 02:00 05/27/24 07:37 Ipratropium 0.5 Mg/Albuterol Sulfate 2.5 Mg Ampul.Neb 3 Ml INHALATION 3 ml Q6HRT MICHAEL Administration Alprazolam 0.25 mg 05/25/24 03:11 05/26/24 20:22 Alprazolam (*Crx) 0.25 Mg Tablet PO 0.25 mg BID PRN Administration Anxiety Enoxaparin Sodium 40 mg 05/25/24 09:00 05/26/24 08:02 Enoxaparin 40 Mg/0.4 Ml Syringe SUB-Q Not Given DAILY MICHAEL Fluticasone Propionate 2 spray 05/25/24 09:00 05/26/24 08:05 Fluticasone Propionate 0.05% Na Spr 16 Gm Btl (*Bkc) NASAL 2 spray QAM MICHAEL Administration Guaifenesin 1,200 mg 05/25/24 09:00 05/26/24 20:22 Guaifenesin 12 Hr 600 Mg Tabcr PO 1,200 mg Q12HR MICHAEL Administration Loratadine 10 mg 05/25/24 09:00 05/26/24 08:02 Loratadine 10 Mg Tablet PO 10 mg QAM MICHAEL Administration Methylprednisolone Sodium Succinate 60 mg 05/27/24 09:00 Methylprednisolone Sod Succ 125 Mg Vial IV PUSH DAILY MICHAEL Montelukast Sodium 10 mg 05/25/24 03:15 05/26/24 20:22 Montelukast Sodium 10 Mg Tablet PO 10 mg HS MICHAEL Administration Ondansetron HCl 4 mg 05/24/24 20:42 Ondansetron Inj 4 Mg/2 Ml Vial IV PUSH Q4H PRN Nausea Oseltamivir Phosphate 75 mg 05/24/24 21:00 05/26/24 20:22 Oseltamivir Phosphate 75 Mg Capsule PO 05/29/24 20:59 75 mg Q12HR MICHAEL Administration Radiology Results: ITS Impressions Chest X-Ray 05/24/24 18:50 IMPRESSION: No acute cardiopulmonary process. Labs Labs: Laboratory Results - last 24 hr 05/27/24 04:34 WBC 12.0 H RBC 5.50 Hgb 15.5 Hct 48.4 MCV 88.0 MCH 28.2 MCHC 32.0 RDW 13.6 Plt Count 274 MPV 9.4 Immature Gran % (Auto) 1.0 H Neut % (Auto) 89.0 H Lymph % (Auto) 7.1 L [place] % (Auto) 2.7 Eos % (Auto) 0.0 Baso % (Auto) 0.2 Lymph # (Auto) 0.85 L [place] # (Auto) 0.3 Eos # (Auto) 0.0 Baso # (Auto) 0.0 Abs Immat Gran (auto) 0.12 H Absolute Neuts (auto) 10.7 H Absolute Nucleated RBC 0.000 Nucleated RBC % 0.0 Sodium 138 Potassium 4.6 Chloride 99 Carbon Dioxide 32 H Anion Gap 7 BUN 23 H Creatinine 0.82 Estim Creat Clear Calc 90 Estimated GFR > 60 Glucose 137 H Calcium 8.6 Total Bilirubin 0.4 AST 40 ALT 94 H Alkaline Phosphatase 63 Total Protein 7.0 Albumin 3.7
[2024-05-27] MEDS: methylPREDNISolone SOD SUCC 125 MG VIAL 60 MG IV PUSH (09:43)
[2024-05-27] MEDS: LORATADINE 10 MG TABLET PO (09:44)
[2024-05-27] MEDS: OSELTAMIVIR PHOSPHATE 75 MG CAPSULE PO ×2 (09:44→21:37)
[2024-05-27] MEDS: guaiFENesin 12 HR 600 MG TABCR 1200 MG PO ×2 (09:44→21:37)
[2024-05-27] MEDS: FLUTICASONE PROPIONATE 0.05% NA SPR 16 GM BTL (*BKC) 2 SPRAY NASAL (09:45)
--- NOTE | 2024-05-27 10:06 | P.PNIM_ITS ---
Progress Note: A&P Assessment and Plan (1) Acute respiratory failure with hypoxia: Code(s): J96.01 - Acute respiratory failure with hypoxia Status: Acute Assessment and Plan: * Chest x-ray was negative for any acute cardiopulmonary process * Respiratory panel positive for influenza A onset 5 days ago * Patient was started on Augmentin and Prednisone by Dr. Craven's office on Saturday with no improvement in his symptoms. Recently recovered from Influenza B * Levaquin given in ED and we will continue Levaquin x5 days considering his respiratory history. * Patient was given 125 mg IV push Solu-Medrol and 1 g of magnesium while in the ED * Currently receiving Solu-Medrol 60 mg daily--weaning as appropriate * Continue DuoNebs * Pep therapy and incentive spirometry ordered * Continue to wean O2 for sat greater than 92%, currently on 3 L nasal cannula. Wears oxygen at 3 liters at home when he wears it per patient. * Patient refused ABG testing * Continuous cardiac monitoring * Started on Tamiflu however his symptoms started 6 days ago. Considering his pulmonary history, we will still treat. * Continue Mucinex * Continue Singulair, Flonase, Claritin * Will need home O2 evaluation prior to discharging * following Outpt with Dr. 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 while inpt (4) Tobacco abuse: Code(s): Z72.0 - Tobacco use Status: Acute Assessment and Plan: * Current every day smoker 1 ppd x40 years * Discussed tobacco cessation * Refused Nicotine patch or gum (5) Influenza A: Code(s): J10.1 - Influenza due to other identified influenza virus with other respiratory manifestations Status: Acute Assessment and Plan: * Respiratory panel positive for influenza A * Continue Tamiflu * See above plan of care (6) Anxiety: Code(s): F41.9 - Anxiety disorder, unspecified Status: Acute Assessment and Plan: * Continue alprazolam (7) Hyperlipidemia: Code(s): E78.5 - Hyperlipidemia, unspecified Status: Acute Assessment and Plan: Recently diagnosed * Unsure what medication used, awaiting nursing to address medication reconciliation. Will restart when known. Subjective Date/time seen: 05/27/24 10:06 Interval history: Patient sitting up in chair. Patient reports that breathing is improving. Patient denies chest pain, palpitations, headache, dizziness, nausea, or vomiting. Patient reports at home he uses oxygen at 3 liters but he does not use it all the time and he also has a nebulizer at home that he uses. Refused Lovenox this morning, add SCD's. Review of Systems Review of Systems: All systems reviewed & are unremarkable except as noted in HPI and below Exam Const: General: comfortable and no acute distress Resp: Effort & Inspection: normal respiratory effort Auscultation: diminished lung sounds Cardio: Rate: regular rate Rhythm: regular rhythm Other: Telemetry- SR 67. GI: GI Palp: Yes Soft to palpation Auscultation: normal bowel sounds Skin: General skin exam: no rashes or lesions noted Neuro: Speech: normal speech Extrem: General: no pedal edema Psych: Mental Status: mental status grossly normal Affect: normal affect Objective Data Vital Signs Vital Signs: Vital Signs - 24 hr 05/26/24 12:00 05/26/24 14:00 05/26/24 14:13 Temperature 97.6 F Pulse Rate 61 76 67 Respiratory Rate 17 20 Blood Pressure 124/65 Pulse Oximetry 94 Oxygen Delivery Oxygen Flow Rate 05/26/24 14:22 05/26/24 16:00 05/26/24 16:00 Temperature 97.6 F Pulse Rate 76 72 62 Respiratory Rate 20 17 Blood Pressure 128/74 Pulse Oximetry 95 Oxygen Delivery Oxygen Flow Rate 05/26/24 20:00 05/26/24 20:00 05/26/24 20:09 Temperature 97.2 F L Pulse Rate 66 65 Respiratory Rate 20 Blood Pressure 133/56 L Pulse Oximetry 98 98 Oxygen Delivery Nasal Cannula Oxygen Flow Rate 4 05/26/24 20:48 05/26/24 20:48 05/26/24 20:54 Temperature Pulse Rate 71 68 Respiratory Rate 18 18 Blood Pressure Pulse Oximetry 91 Oxygen Delivery Nasal Cannula Oxygen Flow Rate 4 05/27/24 00:00 05/27/24 02:28 05/27/24 02:36 Temperature Pulse Rate 66 64 57 L Respiratory Rate 12 12 Blood Pressure Pulse Oximetry Oxygen Delivery Oxygen Flow Rate 05/27/24 04:00 05/27/24 05:26 05/27/24 07:40 Temperature 97.6 F Pulse Rate 60 66 Respiratory Rate 20 Blood Pressure 110/63 Pulse Oximetry 94 95 Oxygen Delivery Nasal Cannula Oxygen Flow Rate 4 05/27/24 07:40 05/27/24 08:02 05/27/24 09:49 Temperature Pulse Rate 68 67 Respiratory Rate 20 20 Blood Pressure Pulse Oximetry 94 Oxygen Delivery Nasal Cannula Oxygen Flow Rate 4 Intake/Output Intake/Output: Intake & Output 05/25/24 05/25/24 05/26/24 05/27/24 00:59 23:59 23:59 23:59 Intake Total 662 400 0958 780 Output Total 450 Balance 932 752 8438 330 Meds/Results Medications: Active Medications Generic Name Dose Route Start Last Admin Trade Name Freq PRN Reason Stop Dose Admin Acetaminophen 650 mg 05/24/24 20:42 05/26/24 20:25 Acetaminophen 325 Mg Tablet PO 650 mg Q4H PRN Administration Mild Pain (1-3) or Fever Albuterol/Ipratropium 3 ml 05/25/24 02:00 05/27/24 07:37 Ipratropium 0.5 Mg/Albuterol Sulfate 2.5 Mg Ampul.Neb 3 Ml INHALATION 3 ml Q6HRT MICHAEL Administration Alprazolam 0.25 mg 05/25/24 03:11 05/26/24 20:22 Alprazolam (*Crx) 0.25 Mg Tablet PO 0.25 mg BID PRN Administration Anxiety Enoxaparin Sodium 40 mg 05/25/24 09:00 05/27/24 09:42 Enoxaparin 40 Mg/0.4 Ml Syringe SUB-Q Not Given DAILY MICHAEL Fluticasone Propionate 2 spray 05/25/24 09:00 05/27/24 09:45 Fluticasone Propionate 0.05% Na Spr 16 Gm Btl (*Bkc) NASAL 2 spray QAM MICHAEL Administration Guaifenesin 1,200 mg 05/25/24 09:00 05/27/24 09:44 Guaifenesin 12 Hr 600 Mg Tabcr PO 1,200 mg Q12HR MICHAEL Administration Loratadine 10 mg 05/25/24 09:00 05/27/24 09:44 Loratadine 10 Mg Tablet PO 10 mg QAM MICHAEL Administration Methylprednisolone Sodium Succinate 60 mg 05/27/24 09:00 05/27/24 09:43 Methylprednisolone Sod Succ 125 Mg Vial IV PUSH 60 mg DAILY MICHAEL Administration Montelukast Sodium 10 mg 05/25/24 03:15 05/26/24 20:22 Montelukast Sodium 10 Mg Tablet PO 10 mg HS MICHAEL Administration Ondansetron HCl 4 mg 05/24/24 20:42 Ondansetron Inj 4 Mg/2 Ml Vial IV PUSH Q4H PRN Nausea Oseltamivir Phosphate 75 mg 05/24/24 21:00 05/27/24 09:44 Oseltamivir Phosphate 75 Mg Capsule PO 05/29/24 20:59 75 mg Q12HR MICHAEL Administration Radiology Results: ITS Impressions Chest X-Ray 05/24/24 18:50 IMPRESSION: No acute cardiopulmonary process. Labs Labs: Laboratory Results - last 24 hr 05/27/24 04:34 WBC 12.0 H RBC 5.50 Hgb 15.5 Hct 48.4 MCV 88.0 MCH 28.2 MCHC 32.0 RDW 13.6 Plt Count 274 MPV 9.4 Immature Gran % (Auto) 1.0 H Neut % (Auto) 89.0 H Lymph % (Auto) 7.1 L [place] % (Auto) 2.7 Eos % (Auto) 0.0 Baso % (Auto) 0.2 Lymph # (Auto) 0.85 L [place] # (Auto) 0.3 Eos # (Auto) 0.0 Baso # (Auto) 0.0 Abs Immat Gran (auto) 0.12 H Absolute Neuts (auto) 10.7 H Absolute Nucleated RBC 0.000 Nucleated RBC % 0.0 Sodium 138 Potassium 4.6 Chloride 99 Carbon Dioxide 32 H Anion Gap 7 BUN 23 H Creatinine 0.82 Estim Creat Clear Calc 90 Estimated GFR > 60 Glucose 137 H Calcium 8.6 Total Bilirubin 0.4 AST 40 ALT 94 H Alkaline Phosphatase 63 Total Protein 7.0 Albumin 3.7 Quality VTE Prophylaxis VTE prophylaxis: mechanical ordered and pharmacologic ordered
[2024-05-27] MEDS: ACETAMINOPHEN 325 MG TABLET 650 MG PO (21:37)
[2024-05-27] MEDS: ALPRAZolam (*CRX) 0.25 MG TABLET PO (21:37)
[2024-05-27] MEDS: MONTELUKAST SODIUM 10 MG TABLET PO (21:37)
[2024-05-28] VITALS (7 sets, daily range): BP systolic 125; BP diastolic 65; PULSE 60–71; RESP 16–20; TEMP 36.6; O2SAT 93–96
[2024-05-28] MEDS: IPRATROPIUM 0.5 MG/ALBUTEROL SULFATE 2.5 MG AMPUL.NEB 3 ML INHALATION ×2 (01:08→08:19)
[2024-05-28 05:09] LABS: Basophils Percent Auto 0.3 % (0.2-1.2); Eosinophils Percent Auto 0.1 % (0-4.4); Hematocrit 47.8 % (42.0-52.0); Hemoglobin 15.1 g/dL (14.0-18.0); Immature Granulocyte Absolute 0.16 K/mm3 (0.00-0.031); Immature Granulocyte Percent A 1.5 % (0-0.5); Lymphocytes Absolute Auto 1.77 K/mm3 (0.9-3.2); Lymphocytes Percent Auto 16.2 % (18.3-44.2); Mean Corpuscular HGB Conc 31.6 g/dl (32-36); Mean Corpuscular Volume 88.5 fl (80-100); Mean Platelet Volume 9.4 fl (7.4-10.4); Monocytes Absolute Auto 0.9 K/mm3 (0.1-0.6); Monocytes Percent Auto 8.1 % (2.6-8.5); Neutrophils Absolute Auto 8.1 K/mm3 (1.3-6.7); Neutrophils Percent Auto 73.8 % (45.5-73.1); Platelet Count Result 252 k/mm3 (150-375); Red Cell Distribution Width 13.5 % (11.5-14.5); White Blood Count 10.9 K/mm3 (4.5-10.0)
[2024-05-28 05:19] LABS: Alanine Aminotransferase 140 U/L (6-50); Albumin Level 3.5 g/dL (3.5-5.1); Alkaline Phosphatase 53 U/L (38-126); Anion Gap 5 mmol/L (4-12); Aspartate Amino Transferase 41 U/L (17-59); Bilirubin,Total 0.5 mg/dL (0.2-1.3); Blood Urea Nitrogen 18 mg/dL (9-20); Calcium 8.4 mg/dL (8.4-10.2); Carbon Dioxide 35 mmol/L (22-30); Chloride 99 mmol/L (98-107); Estimated CRCL calculation 98 ml/min; Estimated Glomerular Filt Rate > 60; Glucose 87 mg/dL (65-110); Potassium 4.2 mmol/L (3.4-5.0); Sodium 139 mmol/L (137-145)
[2024-05-28] MEDS: OSELTAMIVIR PHOSPHATE 75 MG CAPSULE PO (08:28)
[2024-05-28] MEDS: methylPREDNISolone SOD SUCC 125 MG VIAL 60 MG IV PUSH (08:28)
[2024-05-28] MEDS: LORATADINE 10 MG TABLET PO (08:28)
[2024-05-28] MEDS: guaiFENesin 12 HR 600 MG TABCR 1200 MG PO (08:28)
[2024-05-28] MEDS: FLUTICASONE PROPIONATE 0.05% NA SPR 16 GM BTL (*BKC) 2 SPRAY NASAL (08:31)
--- NOTE | 2024-05-28 08:59 | PM.PNPUL ---
Progress Note: A&P Assessment and Plan (1) Acute and chronic respiratory failure with hypoxia: Code(s): J96.21 - Acute and chronic respiratory failure with hypoxia Status: Acute (2) Acute exacerbation of chronic obstructive airways disease: Code(s): J44.1 - Chronic obstructive pulmonary disease with (acute) exacerbation Status: Acute Assessment and Plan: This 63-year-old male with a history of asthma-COPD overlap syndrome has experienced frequent hospitalizations due to exacerbations of obstructive airway disease. He was initially treated with Dupixent and is currently receiving monthly Tezspire injections. He presented with a COPD exacerbation triggered by a recent influenza A infection. His respiratory status is showing improvement with the current treatment regimen, which includes IV steroids, nebulized short-acting bronchodilators, and antibiotics. Although wheezing is still present on physical examination, he does not exhibit shortness of breath while on supplemental oxygen. The viral illness, which began 7 days before hospitalization, likely progressed to exacerbate his underlying airway disease. As the chest X-ray was negative, antibiotics may no longer be necessary. Over the last 24 hours further clinical improvement noted. Physical exam: Mild expiratory wheezing Plan: The patient is cleared for discharge to home. He will continue with supplemental oxygen at the current flow rate. The prednisone taper will proceed as follows: 40 mg orally daily for 3 days, then 30 mg daily for 3 days, followed by 20 mg daily for 3 days, and finally 10 mg daily for 3 days. The patient will maintain his bronchodilator regimen with the Breztri inhaler, administered twice daily, and DuoNeb nebulized treatments every 6 hours as needed. A new nebulizer device is required for home use; please send the prescription to [facility], his durable medical equipment provider. Additionally, a prescription for DuoNeb medications is necessary. The patient does not require a prescription for Tamiflu. He has been advised to contact the pulmonary clinic to schedule a follow-up appointment with his pulmonary physician, Dr. Craven, within the next 3 weeks. I will now sign off. Please feel free to call with any questions. 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 Less shortness of breath less wheezing. Still on supplemental oxygen but a lower rate. Review of Systems Review of Systems: All systems reviewed & are unremarkable except as noted in HPI and below (HPI and below) Exam Narrative: GENERAL APPEARANCE: Well developed, well nourished, alert and cooperative, and appears to be in no acute distress while on supplemental oxygen via nasal cannula SKIN: Inspection of the skin reveals no rashes, ulcerations or petechiae. HEENT: Sclerae anicteric and conjunctivae pink and moist. Extraocular movements were intact and pupils were equal, round, and reactive to light. The oral mucosa, hard and soft palate, tongue and posterior pharynx were normal. NECK: Supple. There was no thyroid enlargement, and no tenderness, or masses were felt. CHEST: Normal AP diameter and normal contour without any kyphoscoliosis. LUNGS: wheezing bilaterally primarily expiratory, less than before CARDIAC: There was a regular rate and rhythm without any murmurs, gallops, rubs. ABDOMEN: Soft and nontender with normal bowel sounds. There was no organomegaly. LYMPH NODES: No lymphadenopathy was appreciated in the neck. EXTREMITIES: No cyanosis, clubbing or edema. NEUROLOGIC: Alert and oriented x 3. Normal affect. Objective Data Vital Signs Vital Signs: Vital Signs - 24 hr 05/27/24 09:49 05/27/24 10:49 05/27/24 12:00 Temperature Pulse Rate 69 Respiratory Rate Blood Pressure Pulse Oximetry 94 94 Oxygen Delivery Nasal Cannula Nasal Cannula Oxygen Flow Rate 4 3 Fraction of Inspired Oxygen 05/27/24 12:42 05/27/24 14:00 05/27/24 14:20 Temperature 36.6 C Pulse Rate 64 81 Respiratory Rate 18 20 Blood Pressure 140/73 Pulse Oximetry 92 95 Oxygen Delivery Nasal Cannula Oxygen Flow Rate 2 Fraction of Inspired Oxygen 05/27/24 14:20 05/27/24 16:00 05/27/24 19:28 Temperature Pulse Rate 81 Respiratory Rate Blood Pressure Pulse Oximetry 96 93 Oxygen Delivery Nasal Cannula Nasal Cannula Oxygen Flow Rate 2 2 Fraction of Inspired Oxygen 28 05/27/24 19:28 05/27/24 19:38 05/27/24 20:00 Temperature Pulse Rate 88 91 Respiratory Rate 20 20 Blood Pressure Pulse Oximetry 93 Oxygen Delivery Nasal Cannula Oxygen Flow Rate 2 Fraction of Inspired Oxygen 05/27/24 20:00 05/27/24 21:35 05/28/24 00:00 Temperature 36.6 C Pulse Rate 91 82 60 Respiratory Rate 20 Blood Pressure 123/59 L Pulse Oximetry 93 Oxygen Delivery Oxygen Flow Rate Fraction of Inspired Oxygen 05/28/24 01:08 05/28/24 01:19 05/28/24 04:00 Temperature Pulse Rate 68 69 64 Respiratory Rate 20 20 Blood Pressure Pulse Oximetry Oxygen Delivery Oxygen Flow Rate Fraction of Inspired Oxygen 05/28/24 04:28 05/28/24 08:20 05/28/24 08:20 Temperature 36.6 C Pulse Rate 62 71 Respiratory Rate 16 20 Blood Pressure 125/65 Pulse Oximetry 96 93 Oxygen Delivery Nasal Cannula Oxygen Flow Rate 2 Fraction of Inspired Oxygen 05/28/24 08:28 05/28/24 08:28 Temperature Pulse Rate 71 Respiratory Rate Blood Pressure Pulse Oximetry 95 Oxygen Delivery Nasal Cannula Oxygen Flow Rate 2 Fraction of Inspired Oxygen Intake/Output Intake/Output: Intake & Output 05/25/24 05/26/24 05/27/24 05/28/24 23:59 23:59 23:59 23:59 Intake Total 444 2164 2260 450 Output Total 450 Balance 444 2164 1810 450 Meds/Results Medications: Active Medications Generic Name Dose Route Start Last Admin Trade Name Freq PRN Reason Stop Dose Admin Acetaminophen 650 mg 05/24/24 20:42 05/27/24 21:37 Acetaminophen 325 Mg Tablet PO 650 mg Q4H PRN Administration Mild Pain (1-3) or Fever Albuterol/Ipratropium 3 ml 05/25/24 02:00 05/28/24 08:19 Ipratropium 0.5 Mg/Albuterol Sulfate 2.5 Mg Ampul.Neb 3 Ml INHALATION 3 ml Q6HRT MICHAEL Administration Alprazolam 0.25 mg 05/25/24 03:11 05/27/24 21:37 Alprazolam (*Crx) 0.25 Mg Tablet PO 0.25 mg BID PRN Administration Anxiety Enoxaparin Sodium 40 mg 05/25/24 09:00 05/28/24 08:31 Enoxaparin 40 Mg/0.4 Ml Syringe SUB-Q Not Given DAILY MICHAEL Fluticasone Propionate 2 spray 05/25/24 09:00 05/28/24 08:31 Fluticasone Propionate 0.05% Na Spr 16 Gm Btl (*Bkc) NASAL 2 spray QAM MICHAEL Administration Guaifenesin 1,200 mg 05/25/24 09:00 05/28/24 08:28 Guaifenesin 12 Hr 600 Mg Tabcr PO 1,200 mg Q12HR MICHAEL Administration Loratadine 10 mg 05/25/24 09:00 05/28/24 08:28 Loratadine 10 Mg Tablet PO 10 mg QAM MICHAEL Administration Methylprednisolone Sodium Succinate 60 mg 05/27/24 09:00 05/28/24 08:28 Methylprednisolone Sod Succ 125 Mg Vial IV PUSH 60 mg DAILY MICHAEL Administration Montelukast Sodium 10 mg 05/25/24 03:15 05/27/24 21:37 Montelukast Sodium 10 Mg Tablet PO 10 mg HS MICHAEL Administration Ondansetron HCl 4 mg 05/24/24 20:42 Ondansetron Inj 4 Mg/2 Ml Vial IV PUSH Q4H PRN Nausea Oseltamivir Phosphate 75 mg 05/24/24 21:00 05/28/24 08:28 Oseltamivir Phosphate 75 Mg Capsule PO 05/29/24 20:59 75 mg Q12HR MICHAEL Administration Radiology Results: ITS Impressions Chest X-Ray 05/24/24 18:50 IMPRESSION: No acute cardiopulmonary process. Labs Labs: Laboratory Results - last 24 hr 05/28/24 04:17 WBC 10.9 H RBC 5.40 Hgb 15.1 Hct 47.8 MCV 88.5 MCH 28.0 MCHC 31.6 L RDW 13.5 Plt Count 252 MPV 9.4 Immature Gran % (Auto) 1.5 H Neut % (Auto) 73.8 H Lymph % (Auto) 16.2 L [place] % (Auto) 8.1 Eos % (Auto) 0.1 Baso % (Auto) 0.3 Lymph # (Auto) 1.77 [place] # (Auto) 0.9 H Eos # (Auto) 0.0 Baso # (Auto) 0.0 Abs Immat Gran (auto) 0.16 H Absolute Neuts (auto) 8.1 H Absolute Nucleated RBC 0.000 Nucleated RBC % 0.0 Sodium 139 Potassium 4.2 Chloride 99 Carbon Dioxide 35 H Anion Gap 5 BUN 18 Creatinine 0.75 Estim Creat Clear Calc 98 Estimated GFR > 60 Glucose 87 Calcium 8.4 Total Bilirubin 0.5 AST 41 ALT 140 H Alkaline Phosphatase 53 Total Protein 6.0 L Albumin 3.5
--- NOTE | 2024-05-28 09:56 | P.DS_ITS ---
DS: Admitting Diagnosis Discharge Date 05/28/24 Admitting Diagnosis Acute Respiratory Failure with Hypoxia, COPD Exacerbation, Samter's Triad, Tobacco Abuse, Influenza A, Anxiety, HLD DS: Discharge Diagnosis Discharge Diagnosis (1) Acute respiratory failure with hypoxia: Code(s): J96.01 - Acute respiratory failure with hypoxia Status: Acute Assessment and Plan: * Chest x-ray was negative for any acute cardiopulmonary process * Respiratory panel positive for influenza A onset 5 days ago * Patient was started on Augmentin and Prednisone by Dr. Craven's office on Saturday with no improvement in his symptoms. Recently recovered from Influenza B * Levaquin given in ED and we will continue Levaquin x5 days considering his respiratory history. * Patient was given 125 mg IV push Solu-Medrol and 1 g of magnesium while in the ED * Currently receiving Solu-Medrol 60 mg daily--weaning as appropriate * Continue DuoNebs * Pep therapy and incentive spirometry ordered * Continue to wean O2 for sat greater than 92%, currently on 3 L nasal cannula. Wears oxygen at 3 liters at home when he wears it per patient. * Patient refused ABG testing * Continuous cardiac monitoring * Started on Tamiflu however his symptoms started 6 days ago. Considering his pulmonary history, we will still treat. * Continue Mucinex * Continue Singulair, Flonase, Claritin * Will need home O2 evaluation prior to discharging * following Outpt with Dr. Fritz- pulmonology following here 05/28/24: * Discharging today, will continue abx to completion, steroids as ordered by Dr. Douglas and continue 2L supplemental oxygen. Follow up with Dr. Craven as outpt. 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 (4) Tobacco abuse: Code(s): Z72.0 - Tobacco use Status: Acute Assessment and Plan: * Current every day smoker 1 ppd x40 years * Discussed tobacco cessation * Refused Nicotine patch or gum 05/28/24: * Spent 7 minutes on cessation discussion. (5) Influenza A: Code(s): J10.1 - Influenza due to other identified influenza virus with other respiratory manifestations Status: Acute Assessment and Plan: * Respiratory panel positive for influenza A * Continue Tamiflu * See above plan of care 05/28/24: * Finish course of tamiflu (6) Anxiety: Code(s): F41.9 - Anxiety disorder, unspecified Status: Acute Assessment and Plan: * Continue alprazolam (7) Hyperlipidemia: Code(s): E78.5 - Hyperlipidemia, unspecified Status: Acute Assessment and Plan: Recently diagnosed * Unsure what medication used, awaiting nursing to address medication reconciliation. Will restart when known. 05/28/24: * Continue current home meds. DS: Summary Hospital Course Reason for hospitalization: Hypoxic respiratory failure Hospital Course: This is a 63-year-old male with a significant past medical history of Samter's triad, COPD with home O2 as needed, asthma, emphysema, eczema, tobacco abuse, GERD who presented to the hospital on 05/24/24 with complaints of shortness of breath/dyspnea. Patient reports the following history of presenting illness. He states that last weekend he was watching his niece and nephew who were sick and then about 4-5 days ago he started to have a cough, congestion, sore throat which progressed into worsening shortness of breath/dyspnea. 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 His symptoms did not improve and he presented here for further evaluation. He did mention that he recently got over Influenza B prior to this onset. He denies any fever, chills, nausea, vomiting, abdominal pain, chest pain. He did report diarrhea since the onset of his symptoms. Workup in the hospital included a chest x-ray which was negative for any acute cardiopulmonary process. Initial labs showed a normal white blood cell count of 7.8 otherwise unremarkable. Respiratory panel was positive for influenza A. EKG showed normal sinus rhythm with supraventricular premature complexes with a rate of 82, QTC 401. Patient was given Duo Nebs, 125 mg IV push Solu-Medrol, 1 g of magnesium, Levaquin, and started on Tamiflu while in the ED and he was admitted for further workup and treatment. During his hospitalization, he was consulted on by Pulmonology who made recommendations regarding care and today believes he is at a good point for discharge. Pt at baseline wears 2L-3L supplemental oxygen when he needs it. He will be discharged home on the same instructions. Pt agreeable to the plan of care and is ready for discharge today. Status at Discharge Cognitive/behavioral status at discharge: At baseline Functional status at discharge: independent ambulation Overall status at discharge: patient is back to baseline Time Spent with Patient Time attestation: Total time spent providing and/or coordinating discharge services: Time spent: Greater than 30 minutes Specific discharge activities: Discharge instructions, follow up, medications Exam Narrative: General: In no acute distress, well nourished Head: atraumatic, no encephalopathy Eyes: PERRLA, sclera clear ENT: moist mucous membranes, nasal passages clear, reports sore throat and co ngestion Neck: supple, no JVD, no adenopathy, trachea midline Cardiac: Normal S1 and S2. RRR, No murmur, gallops or friction rubs, peripheral pulses intact. Respiratory: Bilateral wheezing throughout all lung kramer, no other adventitious lung sounds, currently on 4LNC, no use of accessory muscles or signs of respiratory distress, reports productive cough Gastrointestinal: soft, non-distended, non-tender, normoactive bowel sounds. : voiding without difficulty. Extremities: moves all extremities well, no edema Skin: clean, dry, intact. No wounds or lesions. Neuro: Alert and oriented x4, cranial nerves intact, no neuro deficits. Psych: normal mood, normal affect, interactive DS: Data Data Completed and Pending Completed studies during hospitalization: ITS Impressions Chest X-Ray 05/24/24 18:50 IMPRESSION: No acute cardiopulmonary process. Labs on day of discharge: Labs from last 24 hours 05/28/24 04:17 WBC 10.9 H RBC 5.40 Hgb 15.1 Hct 47.8 MCV 88.5 MCH 28.0 MCHC 31.6 L RDW 13.5 Plt Count 252 MPV 9.4 Immature Gran % (Auto) 1.5 H Neut % (Auto) 73.8 H Lymph % (Auto) 16.2 L Pickett % (Auto) 8.1 Eos % (Auto) 0.1 Baso % (Auto) 0.3 Lymph # (Auto) 1.77 Pickett # (Auto) 0.9 H Eos # (Auto) 0.0 Baso # (Auto) 0.0 Abs Immat Gran (auto) 0.16 H Absolute Neuts (auto) 8.1 H Absolute Nucleated RBC 0.000 Nucleated RBC % 0.0 Sodium 139 Potassium 4.2 Chloride 99 Carbon Dioxide 35 H Anion Gap 5 BUN 18 Creatinine 0.75 Estim Creat Clear Calc 98 Estimated GFR > 60 Glucose 87 Calcium 8.4 Total Bilirubin 0.5 AST 41 ALT 140 H Alkaline Phosphatase 53 Total Protein 6.0 L Albumin 3.5 Discharge Plan Discharge Attending physician on discharge: Casandra Ohara Consulting providers: Navi Douglas Discharging Clinician: Casandra Ohara Anticipated Discharge Date/Time: 05/28/24 10:09 Patient Disposition: Home, Self-Care Activity: as tolerated Diet: as tolerated Discharge Instructions: Take all medications as ordered. Follow up with Dr. Craven in 3 weeks. Continue to wear your oxygen at 2L as directed by Dr. Douglas. Patient Instructions: COPD (Chronic Obstructive Pulmonary Disease) (DC) Patient Language: Belarusian Stand Alone Forms: General Discharge Information Follow-up/Referrals: Deyanira Craven MD [Physician] - Call for Appointment (Within 2-3 weeks) Nikolay,Ken Florian MD [Primary Care Provider] - Discharge Medications: New (DME) nebulizer and compressor Device See Rx Instructions .Route Qty: 1 0RF Rx Instructions: As directed Continued diphenhydramine HCl [Benadryl] 25 mg capsule 25 mg PO TID PRN (Reason: allergy symptoms) Patient Comments: Xhance 93 mcg/actuation aerosol breath activated 1 spray intranasal Q12H Rx Instructions: into each nostril Breztri Aerosphere 160-9-4.8 mcg/actuation HFA aerosol inhaler 2 inh inhalation QAM AND QPM Tezspire 210 mg/1.91 mL (110 mg/mL) syringe 210 mg subcut ONCE Rx Instructions: as a single dose montelukast 10 mg tablet See Rx Instructions .ROUTE .COMPLEX Qty: 30 11RF Dose Instruction: TAKE 1 TABLET(10 MG) BY MOUTH EVERY NIGHT AT BEDTIME Rx Instructions: TAKE 1 TABLET(10 MG) BY MOUTH EVERY NIGHT AT BEDTIME atorvastatin 20 mg tablet 20 mg PO QPM prednisone 10 mg tablet 10 mg PO DIRECTED Qty: 30 0RF Rx Instructions: Take 4 tablets by mouth daily for 3 days, then 3 tablets for 3 days, 2 tablets for 3 days, 1 tablet for 3 days ipratropium-albuterol 0.5 mg-3 mg(2.5 mg base)/3 mL solution for nebulization 3 ml INHALATION QID PRN (Reason: shortness of breath or wheezing) Qty: 180 3RF albuterol sulfate [Ventolin HFA] 90 mcg/actuation HFA aerosol inhaler 2 inh INHALATION Q4-6H PRN (Reason: shortness of breath or wheezing) Qty: 8.5 2RF Zyrtec 10 mg capsule 10 mg PO DAILY 90 Days Qty: 90 1RF alprazolam 0.25 mg tablet 0.25 mg PO BID PRN (Reason: anxiety) Qty: 60 0RF Discontinued amoxicillin-pot clavulanate 875-125 mg tablet 1 tablet PO BID 7 Days Qty: 14 0RF Date of admission: 05/25/24 08:54 Primary Care Provider: Nikolay,Ken Florian Admitting Provider: Adam Lovelace Attending physician on admission: Casandra Ohara Condition: Serious Quality VTE Prophylaxis VTE prophylaxis: mechanical ordered Hospitalist MIPS Heart Failure (Exclusion) Patient has history of Heart Transplant or Left Ventricular Assistive Device?: No IF YES, STOP HERE Heart Failure (Qualifier) Patient has current or prior documentation of LVEF less than or equal to 40%, or mod/servere depressed LVSF?: No IF NO, STOP HERE
== END 2024-05-28 12:59 | disposition home or self-care (01) | DRG 193 ==
LOC: ANHED 20:55 → ANH3MEDSUR 22:35 → ANH2MED 05-25 15:58
PROVIDERS: Emergency Medicine; Nurse Practitioner Acute Care; Admitting Provider Internal Medicine; Emergency Provider Physician Assistant; PCP Family Medicine; Visit Provider Nurse Practitioner Adult Health
DX: J10.1 Influenza due to other identified influenza virus with other respiratory manifestations (principal); J96.21 Acute and chronic respiratory failure with hypoxia; J44.1 Chronic obstructive pulmonary disease with (acute) exacerbation; J33.8 Other polyp of sinus; Z88.6 Allergy status to analgesic agent; F17.210 Nicotine dependence, cigarettes, uncomplicated; F41.9 Anxiety disorder, unspecified; E78.5 Hyperlipidemia, unspecified; L30.9 Dermatitis, unspecified; K21.9 Gastro-esophageal reflux disease without esophagitis; Z99.81 Dependence on supplemental oxygen; Z90.49 Acquired absence of other specified parts of digestive tract
CPT/HCPCS: 36415; 71046; 80053; 83735; 85025; 87637; 93005; 94640; 96365; 96374; 96375; 99285; A9270; J1650; J1956; J2919; J3475